=== PATIENT | female | born 1930 | race Caucasian/White ===

== ENCOUNTER 2016-12-02 13:20 | Emergency (ER) | payer MEDICARE, OTHER ==
--- NOTE | 2016-12-02 15:30 | ED ---
Abdominal Pain/Female - HPI Summary HPI Summary: Patient presents for delayed evaluation of diffuse, atraumatic, intermittent, cramping abdominal pain. No allev factors, recent narcotic or antihistamine use. No change to cramping character or severity. Came for evaluation due to duration. Did not discuss this with her PCP. - History of Current Complaint Chief Complaint: EDAbdPain Stated Complaint: POSS BOWEL OBSTRUCTION Time Seen by Provider: 12/02/16 15:22 Hx Obtained From: Patient Onset/Duration: Gradual Onset Timing: Constant Severity Initially: Mild Severity Currently: Mild Pain Intensity: 6 Allergies/Adverse Reactions: Allergies Allergy/AdvReac Type Severity Reaction Status Date / Time No Known Allergies Allergy Verified 09/24/16 10:40 PMH/Surg Hx/FS Hx/Imm Hx Endocrine/Hematology History: Reports: Hx Unexplained Bleeding - Presently has blood in stool Denies: Hx Diabetes, Hx Sickle Cell Disease, Hx Anemia Cardiovascular History: Reports: Hx Congestive Heart Failure, Hx Hypertension - CONTROL WITH MEDS, 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, Other Cardiovascular Problems/Disorders - ATRIAL FIB Denies: Hx Pacemaker/ICD Respiratory History: Denies: Hx Asthma, Other Respiratory Problems/Disorders GI History: Denies: Hx Jaundice, Other GI Disorders History: Denies: Hx Dialysis, Hx Renal Disease, Other Problems/Disorders Musculoskeletal History: Denies: Other Musculoskeletal History Sensory History: Reports: Hx Cataracts, Hx Contacts or Glasses - GLASSES - CAN SEE WITHOUT THEM, Hx Glaucoma - BILATERAL Denies: Hx Hearing Aid Opthamlomology History: Reports: Hx Cataracts, Hx Contacts or Glasses - GLASSES - CAN SEE WITHOUT THEM, Hx Glaucoma - BILATERAL Neurological History: Denies: Other Neuro Impairments/Disorders Psychiatric History: Denies: Hx Panic Disorder - Surgical History Surgery Procedure, Year, and Place: TONSILLECTOMY A CHILD. [place] [facility] [place] B[place], FIRST ONE IN [place], [place], [place] [facility] [place] [facility] [place]. 2005 EXCISION OF SOFT TISSUE MASS RIGHT HIP [place], [facility] [place] [facility] [place] BILATERAL CATARACT [place]TRACTION WITH IOL IMPLANTS[place] [facility] [place]x Anesthesia Reactions: No Infectious Disease History: No Infectious Disease History: Denies: Traveled Outside the [place] in Last 30 Days - Social History Alcohol Use: Daily Alcohol Amount: RED WINE Substance Use Type: Reports: None Smoking Status (MU): Former Smoker Type: Cigarettes Amount Used/How Often: 1 PPD FOR 20 YEARS Length of Time of Smoking/Using Tobacco: 20 years Have You Smoked in the Last Year: No Review of Systems Negative: Fever, Chills Cardiovascular: Negative Respiratory: Negative Positive: Abdominal Pain. Negative: Vomiting, Diarrhea, Nausea Genitourinary: Negative Positive: no symptoms reported All Other Systems Reviewed And Are Negative: Yes Physical Exam Triage Information Reviewed: Yes Vital Signs On Initial Exam: Initial Vitals Temp Pulse Resp BP Pulse Ox 97.4 F 77 18 133/90 97 12/02/16 13:21 12/02/16 13:21 12/02/16 13:21 12/02/16 13:21 12/02/16 13:21 Vital Signs Reviewed: Yes Appearance: Positive: Well-Appearing, No Pain Distress, Well-Nourished Skin: Positive: Warm, Skin Color Reflects Adequate Perfusion, Dry Neck: Positive: Supple, Nontender Respiratory/Lung Sounds: Positive: Clear to Auscultation, Breath Sounds Present Cardiovascular: Positive: Normal, RRR, Pulses are Symmetrical in both Upper and Lower Extremities Abdomen Description: Positive: Nontender, No Organomegaly, Soft Bowel Sounds: Positive: Present Musculoskeletal: Positive: Normal, Strength/ROM Intact Neurological: Positive: Normal, Sensory/Motor Intact, Alert, Oriented to Person Place, Time, CN Intact II-III - Regan Coma Scale Coma Scale Total: 15 Diagnostics - Vital Signs Vital Signs Temp Pulse Resp BP Pulse Ox 12/02/16 14:16 98.1 F 66 18 136/93 95 12/02/16 13:21 97.4 F 77 18 133/90 97 - Laboratory Result Diagrams: 12/02/16 15:50 12/02/16 15:50 Lab Statement: Any lab studies that have been ordered have been reviewed, and results considered in the medical decision making process. Abdominal Pain Fem Course/Dx - Diagnoses Differential Diagnosis: Positive: Bowel Obstruction, Constipation, Urinary Tract Infection, Other - Soft benign abdomen, but with low concern for ischemic bowel disease. Provider Diagnoses: Abdominal pain Discharge - Discharge Plan Condition: Stable Disposition: HOME Patient Education Materials: Abdominal Pain (ED)
[2016-12-02 16:07] LABS: Hematocrit 47 % (35-47); Hemoglobin 15.5 g/dl (12.0-16.0); Mean Corpuscular HGB Conc 33 g/dl (31-36); Mean Corpuscular Hemoglobin 33 pg (27-31); Mean Corpuscular Volume 99 fL (80-97); Mean Platelet Volume 10 um3 (7.4-10.4); Red Blood Count 4.71 10^6/ul (4.0-5.4); Red Cell Distribution Width 14 % (10.5-15); White Blood Count 9.7 10^3/ul (3.5-10.8)
[2016-12-02 16:21] LABS: Albumin 4.6 g/dL (3.2-5.2); BUN/Creatinine Ratio 21.7 (8-20); Calcium 10.1 mg/dL (8.6-10.3); EGFR Non-African American 65.3 (>60); Globulin 2.3 g/dL (2-4); Total Protein 6.9 g/dL (6.4-8.9)
[2016-12-02] MEDS ORDERED: Iohexol 300* (CONTRAST) 10 ML SDV IV ONE (16:37)
[2016-12-02 17:22] LABS: Urine Bilirubin Negative (Negative); Urine Glucose Negative (Negative); Urine Nitrite Negative (Negative)
--- NOTE | 2016-12-02 17:32 | RAD ---
INDICATION: Abdominal pain. Bowel obstruction. COMPARISON: No recent plain radiographs; CT abdomen pelvis October 09, 2016 TECHNIQUE: Axial source images were obtained from the hemidiaphragms to the symphysis pubis following administration of oral and intravenous contrast. 85 mL Omnipaque 300 was utilized. Coronal and sagittal reconstructed images were acquired. Lung bases: The lung bases are clear. There are basilar emphysematous changes. The heart is enlarged. Liver: The liver is normal in size. There is mild left hepatic lobe prominence and there is mild heterogeneity suggesting underlying hepatic parenchymal disease. Suggest correlation with liver enzymes as indicated. There are no masses. There is no ductal dilatation. Gallbladder: There are no calcified gallstones. There is no evidence of wall thickening or pericholecystic fluid. Spleen: The spleen is normal in size. There are no masses. Pancreas: There is no focal pancreatic mass or ductal dilatation. Adrenal glands: There is presumed mild adrenal hyperplasia. Kidneys: The kidneys are normal in size and position although there is renal parenchymal thinning bilaterally. There are prompt nephrograms and there is prompt excretion bilaterally. There are no renal parenchymal masses. There is no evidence of nephrolithiasis. Adenopathy: There is no evidence of adenopathy by size criteria. Fluid collections: There are no free or localized fluid collections. Vessels:There are atherosclerotic changes involving the aorta and iliac vessels. There is no focal aneurysm. The IVC appears normal. GI tract: There are no acute CT bowel findings. There is no obstruction. There is minor gaseous distention. The stomach and small bowel appear normal. The lower GI tract is normal. The cecum, ileocecal valve, and terminal ileum appear normal. The appendix is visualized and appear normal. Pelvic organs: The uterus and adnexa appear normal Bladder: There are no bladder masses. Abdominal and pelvic soft tissues: The extraperitoneal abdominal and pelvic soft tissues appear normal.. Osseous structures: There are no acute osseous findings. There is spondylitic change of the thoracolumbar spine. Other: None IMPRESSION: NO ACUTE CT FINDINGS. NO BOWEL OBSTRUCTION. MINOR GASEOUS DISTENTION. SUGGEST FOLLOW-UP PLAIN RADIOGRAPHS INDICATED
[2016-12-02 18:17] VITALS: BP 155/86
== END 2016-12-02 18:16 | disposition home or self-care (01) ==
LOC: ED 13:20
DX: R10.9 Unspecified abdominal pain (principal); Z87.891 Personal history of nicotine dependence; I50.9 Heart failure, unspecified; I10 Essential (primary) hypertension; I05.8 Other rheumatic mitral valve diseases; I48.91 Unspecified atrial fibrillation; Z79.01 Long term (current) use of anticoagulants
CPT/HCPCS: 36415; 74177; 80053; 81003; 83690; 85027; 85610; 96360; 99282; Q9967

== ENCOUNTER 2017-02-09 11:21 | Emergency (ER) | payer MEDICARE, OTHER ==
[2017-02-09 11:39] VITALS: BP 122/88
--- NOTE | 2017-02-09 12:56 | RAD ---
Indication: Constipation. Flat and upright views of the abdomen demonstrates no free air. No dilated loops of bowel are noted. The colon is filled with stool. IMPRESSION: No free air or obstruction is noted.
--- NOTE | 2017-02-09 13:44 | UC ---
General HPI - HPI Summary HPI Summary: FIVE DAYS OF CONSTIPATION TWO DAYS AGO, WELL YESTERDAY, TOOK MIRALAX WITH NO IMPROVEMENT OF SYMPTOMS. NO FEVER. NO TRAUMA. NO ABDOMINAL PAIN. NO RECTAL BLEEDING. NO NEW MEDICATIONS. DOES NOT TAKE FIBER SUPPLIMENTS. NOT ON ANY OPIOID MEDICATIONS. HAS "MEAT AND POTATOES" DIET. - History of Current Complaint Chief Complaint: UCGI Stated Complaint: CONSTIPATION Time Seen by Provider: 02/09/17 11:56 Hx Obtained From: Patient, Family/Senior Product Integrity Engineer Onset/Duration: Gradual Onset, Lasting Days, Still Present Onset Severity: Mild Current Severity: Moderate Pain Intensity: 4 Associated Signs & Symptoms: Negative: Agitation, Abdominal Pain, Confusion, Cough, Diarrhea, Dysuria, Decreased Oral Intake, Fever, Melena, Nausea, SOB, Trauma, Weakness - Allergy/Home Medications Allergies/Adverse Reactions: Allergies Allergy/AdvReac Type Severity Reaction Status Date / Time No Known Allergies Allergy Verified 09/24/16 10:40 Home Medications: Home Medications Polyethylene Glycol 3350 BTL* [Miralax] 1 dose PO DAILY PRN 02/09/17 [History Confirmed 02/09/17] PMH/Surg Hx/FS Hx/Imm Hx Previously Healthy: Yes Endocrine History Of: Denies: Diabetes, Thyroid Disease Cardiovascular History Of: Reports: Cardiac Disorders - atrial fib, defective Mitral valve, Hypertension - CONTROL WITH MEDS, Congestive Heart Failure, Atrial Fibrillation Denies: Pacemaker/ICD Respiratory History Of: Denies: COPD, Asthma GI/ History Of: Denies: Ulcer, Renal Disease - Surgical History Surgical History: Yes Surgery Procedure, Year, and Place: TONSILLECTOMY A CHILD. DILATION AND [place]TTAGES, 1 AT [facility] [place]. [place] & 1981 BILATERAL ANKLE SURGERY, FIRST ONE IN [place], [place], SEC[place] AT [facility] [place]. 1990 FRACTURE ARM REPAIR, [facility] [place]. 2006 EXCISION OF SOFT TISSUE MASS RIGHT HIP AND BACK, [facility] [place]. 2012 CARDIOVERSION X2, [facility] [place]. 2013 BILATERAL CATARACT EXTRACTION WITH IOL IMPLANTS, [facility] [place] - Family History Known Family History: Negative: Renal Disease - Social History Occupation: Retired Lives: At [facility] Alcohol Use: Daily Alcohol Amount: RED WINE Substance Use Type: None Smoking Status (MU): Former Smoker Type: Cigarettes Amount Used/How Often: 1 PPD FOR 20 YEARS Length of Time of Smoking/Using Tobacco: 20 years Have You Smoked in the Last Year: No When Did the Patient Quit Smoking/Using Tobacco: 1971 - Immunization History Most Recent Influenza Vaccination: season Most Recent Tetanus Shot: unknown Most Recent Pneumonia Vaccination: 2009 Review of Systems Constitutional: Negative Skin: Negative Eyes: Negative ENT: Negative Respiratory: Negative Cardiovascular: Negative Gastrointestinal: Other - CONSTIPATION Genitourinary: Negative Motor: Negative Neurovascular: Negative Musculoskeletal: Negative Neurological: Negative Psychological: Negative All Other Systems Reviewed And Are Negative: Yes Physical Exam Triage Information Reviewed: Yes Appearance: Well-Appearing, No Pain Distress, Well-Nourished Vital Signs: Initial Vital Signs Temp 97.7 F 02/09/17 11:31 Pulse 90 02/09/17 11:31 Resp 16 02/09/17 11:31 BP 122/88 02/09/17 11:31 Pulse Ox 97 02/09/17 11:31 Vital Signs Reviewed: Yes Eye Exam: Normal ENT Exam: Normal ENT: Positive: Normal ENT inspection, Hearing grossly normal, TMs normal Dental Exam: Normal Neck exam: Normal Neck: Positive: Supple, Nontender, No Lymphadenopathy Respiratory Exam: Normal Respiratory: Positive: Chest non-tender, Lungs clear, Normal breath sounds, No respiratory distress Cardiovascular Exam: Normal Cardiovascular: Positive: RRR, No Murmur Abdomen Description: Positive: Nontender, No Organomegaly, Soft, Distended Bowel Sounds: Positive: Present, Hypoactive Musculoskeletal Exam: Normal Neurological Exam: Normal Psychological Exam: Normal Psychological: Positive: Normal Response To Family Skin Exam: Normal Course/Dx - Differential Dx - Multi-Symptom Provider Diagnoses: CONSTIPATION Discharge - Discharge Plan Condition: Stable Disposition: HOME Prescriptions: Magnesium CITRATE* [Citrate of Magnesia*] 300 ml PO SEE INSTRUCTIONS PRN #1 [id number] PRN Reason: Constipation Patient Education Materials: Constipation (ED) Referrals: Baldemar Knapp MD [Primary Care Provider] - Denys Zaragoza MD [Medical Doctor] -
== END 2017-02-09 13:16 | disposition home or self-care (01) ==
LOC: UCEAST 11:21
DX: K59.00 Constipation, unspecified (principal); I48.91 Unspecified atrial fibrillation; I11.0 Hypertensive heart disease with heart failure; I50.9 Heart failure, unspecified; Z95.2 Presence of prosthetic heart valve; Z87.891 Personal history of nicotine dependence
CPT/HCPCS: 74020; 99212; G0463

== ENCOUNTER 2018-11-16 14:29 | Inpatient (IN) | payer MEDICARE, OTHER ==
[2018-11-16] MEDS ORDERED: Tetan/Diph/Pertus SYR(Tdap)* 0.5 ML SYR(BOOSTRIX) use SYR IM ONE (14:48)
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
[2018-11-16] MEDS ORDERED: oxyCODONE/Acetamin 5/325 MG* TAB PO ONE (16:02)
[2018-11-16] MEDS ORDERED: NS 0.9% 1000 ML** 1,000 ML IV ONE (18:51)
[2018-11-16 19:43] LABS: ABS Basophils 0.1 10^3/ul (0-0.2); ABS Eosinophils 0 10^3/ul (0-0.6); ABS Lymphocytes 1.2 10^3/ul (1.0-4.8); ABS Monocytes 1.3 10^3/ul (0-0.8); ABS Neutrophils 14.5 10^3/ul (1.5-7.7); ABS Nucleated RBC 0 10^3/ul; Eosinophil % 0.1 %; Hematocrit 36 % (35-47); Hemoglobin 11.8 g/dl (12.0-16.0); Lymphocyte % 7.1 %; Mean Corpuscular HGB Conc 33 g/dl (31-36); Mean Corpuscular Hemoglobin 33 pg (27-31); Mean Corpuscular Volume 102 fL (80-97); Mean Platelet Volume 9.8 fL (7.4-10.4); Nucleated Red Blood Cells % 0.2; Platelet Count 208 10^3/ul (150-450); Red Blood Count 3.58 10^6/ul (4.00-5.40); Red Cell Distribution Width 17 % (10.5-15); White Blood Count 17.1 10^3/ul (3.5-10.8)
[2018-11-16 19:58] LABS: Activated Partial Thrombo Time 30.2 seconds (26.0-36.3); INR 1.52 (0.77-1.02)
[2018-11-16 20:06] LABS: Albumin 3.9 g/dL (3.2-5.2); Albumin/Globulin Ratio 2.2 (1-3); BUN/Creatinine Ratio 33.3 (8-20); Calcium 9.7 mg/dL (8.6-10.3); EGFR Non-African American 51.3 (>60); Globulin 1.8 g/dL (2-4); Potassium 4.7 mmol/L (3.5-5.0); Total Bilirubin 1.3 mg/dL (0.2-1.0); Total Protein 5.7 g/dL (6.4-8.9)
[2018-11-16 20:27] LABS: Urine Appearance Cloudy; Urine Bacteria Absent (Absent); Urine Bilirubin Negative (Negative); Urine Blood 3+ (Negative); Urine Color Yellow; Urine Glucose Negative (Negative); Urine Ketones Trace (Negative); Urine Nitrite Negative (Negative); Urine Protein Negative (Negative); Urine Red Blood Cell 3+(>10/hpf) (Absent); Urine Specific Gravity 1.025 (1.010-1.030); Urine Squamous Epithelial Cell Present (Absent); Urine Urobilinogen Negative (Negative); Urine White Blood Cell Trace(0-5/hpf) (Absent)
[2018-11-16] MEDS ORDERED: Phytonadione Oral Solution* 5 MG/25 ML UDC PO ONE (21:14)
[2018-11-16] MEDS ORDERED: Acetaminophen TAB* 325 MG PO PRN (21:16)
[2018-11-16] MEDS ORDERED: oxyCODONE/Acetamin 5/325 MG* TAB PO PRN (21:28)
[2018-11-16] MEDS ORDERED: Morphine VIAL* 4 MG/ML VIAL (1 ml vial) IV PRN (21:28)
--- NOTE | 2018-11-16 21:50 | ADMNOTE ---
Subjective Date of Service: 11/16/18 Interval History: Date of Admission: 11/16/2018 Primary Care Provider: Dr Knapp Attending Physician: Dr Marshall Chief Complaint: 1. Mechanical Fall 2. Right hip pain 3. Right shoulder pain HPI: Mrs Roach is a 88 yr old female with a pmh of diastolic heart failure, 3 L supplemental O2 at home, HTN, tricuspid valve regurg, atrial fib, osteoporosis , hld, impaired fasting glucose, and LE edema; who presented to the ED after a mechanical fall on ice which results in her falling onto her right side and hitting head. While in the ED patient was found to have a communated angulated intertrochanteric fx of the right femur. In addition imagind of her right ue revealed linear density of the radial head which may indicate an impacted nondisplaced fx of the radial head. Due to these findings, Dr Huitron was contacted by the ED provider and the hospitalist were asked to evaluated for admission. Review of Systems - Measurements Intake and Output: Intake and Output Last 24 Hours 11/14/18 11/15/18 11/16/18 11/17/18 06:59 06:59 06:59 06:59 Weight 55.338 kg - Review of Systems Constitutional Symptoms: Negative: Weight Loss, Weakness, Fever, Unexplained Falls Dermatology: Negative: Rash HEENT: Negative: Vertigo Eyes: Negative: Normal, Change in Vision, Double Vision Thyroid: Negative: Constipation, Palpitations, Weight Loss Pulmonary: Positive: Shortness of Breath - with exertion, Exercise Intolerance, Home Oxygen Negative: Cough, Sputum, Hemoptysis, Wheezing, Respiratory Distress, COPD Cardiology: Positive: Shortness of Breath Negative: Chest Pain, Palpitations, Swelling of Ankles, Peripheral Vascular Dis, Edema, Faintness, Syncope, Claudication, Proximal NocturnalDyspnea, Orthopnoea Gastroenterology: Positive: Blood in Stools - per ED provider documentation she reports blood in stool recently. Negative: Normal, Abdominal Pain, Nausea, Vomiting, Difficulty Swallowing, Constipation, Diarrhea, Change in Bowel Habits Genital - Urinary: Negative: Dysuria, Hematuria Musculoskeletal: Positive: Joint Pain, Osteoporosis, Low Back Pain - Hx of low back pain d/t "stress fx" Hematologic/Lymphatic: Positive: Use of Anticoagulant Neurology: Negative: Normal, Headache, Dizziness, Numbness\\Paresthesiae, Unexplained Weakness, Hx of Stroke\\TIA, Hx of Seizures Psychiatry: Negative: Normal, Depression, Anxiety Objective Active Medications: Acetaminophen (Tylenol Tab*) 650 mg PO Q6H LIA Docusate Sodium (Colace Cap*) 100 mg PO BID LIA Sodium Chloride (Ns 0.9% 1000 Ml*) 1,000 mls @ 100 mls/hr IV ED ONCE ONE Stop: 11/17/18 04:50 Last Admin: 11/16/18 19:17 Dose: 100 mls/hr Metoprolol Tartrate (Lopressor Tab*) 50 mg PO BID LIA Morphine Sulfate (Morphine Inj ((Syringe))*) 1 mg IV Q4H PRN PRN Reason: SEVERE PAIN Oxycodone/Acetaminophen (Percocet 5/325 Tab*) 1 tab PO Q6H PRN PRN Reason: PAIN Vital Signs - 8 hr 11/16/18 11/16/18 11/16/18 14:30 14:47 15:00 Temperature 97.3 F Pulse Rate 83 80 Respiratory 16 Rate Blood Pressure 125/85 107/77 (mmHg) O2 Sat by Pulse 99 Oximetry 11/16/18 11/16/18 11/16/18 15:01 16:00 16:01 Temperature Pulse Rate 80 87 85 Respiratory Rate Blood Pressure 101/81 (mmHg) O2 Sat by Pulse 100 100 Oximetry 11/16/18 11/16/18 11/16/18 16:09 17:00 17:58 Temperature Pulse Rate 89 Respiratory 16 Rate Blood Pressure 107/74 (mmHg) O2 Sat by Pulse 99 Oximetry 11/16/18 11/16/18 11/16/18 18:02 18:13 18:30 Temperature Pulse Rate 97 91 Respiratory Rate Blood Pressure 100/68 85/67 (mmHg) O2 Sat by Pulse 99 100 Oximetry 11/16/18 11/16/18 11/16/18 18:32 18:45 19:00 Temperature 98.9 F Pulse Rate 87 91 93 Respiratory 16 Rate Blood Pressure 95/73 95/73 103/69 (mmHg) O2 Sat by Pulse 97 99 100 Oximetry 11/16/18 11/16/18 11/16/18 19:01 20:00 20:01 Temperature Pulse Rate 92 102 102 Respiratory Rate Blood Pressure 92/51 (mmHg) O2 Sat by Pulse 100 98 100 Oximetry Oxygen Devices in Use Now: Nasal Cannula Appearance: Comfortable, Cooperative, NAD Eyes: No Scleral Icterus Ears/Nose/Mouth/Throat: Clear Oropharnyx, Mucous Membranes Moist Neck: NL Appearance and Movements; NL JVP Respiratory: Symmetrical Chest Expansion and Respiratory Effort, Clear to Auscultation Cardiovascular: NL Sounds; No Murmurs; No JVD, No Edema, - - Irregular Abdominal: NL Sounds; No Tenderness; No Distention Lymphatic: No Cervical Adenopathy Extremities: No Edema, No Clubbing, Cyanosis, - - External rotation of right LE. Pulses found by doppler Skin: No Rash or Ulcers Neurological: Alert and Oriented x 3, NL Sensation Nutrition: Taking PO's Result Diagrams: 11/16/18 19:35 11/16/18 19:35 Additional Lab and Data: Laboratory Results - last 24 hr 11/16/18 11/16/18 11/16/18 17:25 19:35 19:35 WBC 17.1 H RBC 3.58 L Hgb 11.8 L Hct 36 MCV 102 H MCH 33 H MCHC 33 RDW 17 H Plt Count 208 MPV 9.8 Neut % (Auto) 84.6 Lymph % (Auto) 7.1 [place] % (Auto) 7.7 Eos % (Auto) 0.1 Baso % (Auto) 0.5 Absolute Neuts (auto) 14.5 H Absolute Lymphs (auto) 1.2 Absolute Monos (auto) 1.3 H Absolute Eos (auto) 0 Absolute Basos (auto) 0.1 Absolute Nucleated RBC 0 Nucleated RBC % 0.2 INR (Anticoag Therapy) 1.52 H APTT 30.2 Sodium Potassium Chloride Carbon Dioxide Anion Gap BUN Creatinine Est GFR ( Amer) Est GFR (Non-Af Amer) BUN/Creatinine Ratio Glucose Calcium Total Bilirubin AST ALT Alkaline Phosphatase Total Protein Albumin Globulin Albumin/Globulin Ratio Urine Color Yellow Urine Appearance Cloudy Urine pH 5.0 Ur Specific [place] 1.025 Urine Protein Negative Urine Ketones Trace A Urine Blood 3+ A Urine Nitrate Negative Urine Bilirubin Negative Urine Urobilinogen Negative Ur Leukocyte Esterase Negative Urine WBC (Auto) Trace(0-5/hpf) Urine RBC (Auto) 3+(>10/hpf) A Ur Squamous Epith Cells Present A Urine Bacteria Absent Urine Glucose Negative Blood Type Antibody Screen 11/16/18 11/16/18 19:35 19:35 WBC RBC Hgb Hct MCV MCH MCHC RDW Plt Count MPV Neut % (Auto) Lymph % (Auto) [place] % (Auto) Eos % (Auto) Baso % (Auto) Absolute Neuts (auto) Absolute Lymphs (auto) Absolute Monos (auto) Absolute Eos (auto) Absolute Basos (auto) Absolute Nucleated RBC Nucleated RBC % INR (Anticoag Therapy) APTT Sodium 138 Potassium 4.7 Chloride 102 Carbon Dioxide 28 Anion Gap 8 BUN 34 H Creatinine 1.02 H Est GFR ( Amer) 62.0 Est GFR (Non-Af Amer) 51.3 BUN/Creatinine Ratio 33.3 H Glucose 117 H Calcium 9.7 Total Bilirubin 1.30 H AST 16 ALT 16 Alkaline Phosphatase 73 Total Protein 5.7 L Albumin 3.9 Globulin 1.8 L Albumin/Globulin Ratio 2.2 Urine Color Urine Appearance Urine pH Ur Specific [place] Urine Protein Urine Ketones Urine Blood Urine Nitrate Urine Bilirubin Urine Urobilinogen Ur Leukocyte Esterase Urine WBC (Auto) Urine RBC (Auto) Ur Squamous Epith Cells Urine Bacteria Urine Glucose Blood Type A Positive Antibody Screen Negative Microbiology and Other Data: . Diagnostic Imaging: TECHNIQUE: Multiple contiguous axial CT scans were obtained of the head without intravenous contrast. FINDINGS: HEMORRHAGE/INFARCT: There is no hemorrhage or acute infarct. MASSES/SHIFT: There is no mass or shift. EXTRA-AXIAL SPACES: There are no extra-axial fluid collections. SULCI AND VENTRICLES: There is diffuse and proportional enlargement of the sulci and ventricles. CEREBRUM: There is hypoattenuation of the periventricular and subcortical white matter. BRAINSTEM: There are no focal parenchymal abnormalities. CEREBELLUM: There are no focal parenchymal abnormalities. VESSELS: There is calcification of the cavernous segments of the internal carotid arteries bilaterally and of the distal vertebral arteries bilaterally. PARANASAL SINUSES: The paranasal sinuses are clear. ORBITS: The orbits are unremarkable. BONES AND SOFT TISSUE: No bone or soft tissue abnormalities are noted. OTHER: None IMPRESSION: NO ACUTE INTRACRANIAL PATHOLOGY. DIFFUSE INVOLUTIONAL CHANGE WITH CHRONIC SMALL VESSEL ISCHEMIC CHANGES. TECHNIQUE: Multiple contiguous axial CT scans were obtained of the cervical spine without intravenous contrast, with coronal and sagittal multiplanar reformations. FINDINGS: BRAIN: The visualized brain is unremarkable CENTRAL CANAL: Evaluation of the central canal is limited on CT technique; however, there is no obvious canalicular mass or epidural hemorrhage. ALIGNMENT: There is grade 1 retrolisthesis of C4 and C5. VERTEBRAL BODIES: There is diffuse osteopenia. There is no displaced fracture. There is multilevel anterolateral marginal osteophyte formation. JOINTS: There is diffuse uncovertebral and facet osteoarthritis. MUSCULATURE: Unremarkable INTERVERTEBRAL DISCS: There is diffuse loss of intervertebral disc height. AXIAL IMAGES: C2-C3: There is no osseous neural foraminal narrowing or central canal stenosis. C3-C4: There is mild right neuroforaminal neural foraminal narrowing. There is no osseous central canal stenosis. C4-C5: There is a broad-based disc osteophyte complex with bilateral uncovertebral and facet hypertrophy. There is severe bilateral neuroforaminal narrowing. There is moderate to severe narrowing of the central canal. C5-C6: There is severe left and moderate right neuroforaminal narrowing. There is mild narrowing of the central canal. C6-C7: There is moderate left and mild right neuroforaminal narrowing. There is mild narrowing of the central canal. C7-T1: There is no osseous neural foraminal narrowing or central canal stenosis. SOFT TISSUES: There is calcification of the bifurcations bilaterally and of the distal vertebral arteries bilaterally. The prevertebral fat stripe is preserved. OTHER: None. IMPRESSION: 1. OSTEOPENIA. 2. ATHEROSCLEROSIS 3. DEGENERATIVE DISC DISEASE AND OSTEOARTHRITIS, DESCRIBED ABOVE. 4. NO ACUTE OSSEOUS INJURY TO THE CERVICAL SPINE VIEWS: 7 , Frontal view of the pelvis with frontal and crosstable lateral views of the right hip with frontal and lateral views of the right femur FINDINGS: BONE DENSITY: There is diffuse osteopenia. BONES: There is a comminuted and angulated intertrochanteric fracture of the right femur. JOINTS: There is osteoarthritis of the hips and right knee. ALIGNMENT: There is no dislocation. SOFT TISSUES: Unremarkable. OTHER FINDINGS: None. IMPRESSION: COMMINUTED ANGULATED INTERTROCHANTERIC FRACTURE OF THE RIGHT FEMUR. OSTEOPENIA. OSTEOARTHRITIS. VIEWS: 4 , Frontal internal rotation, external rotation, outlet, and axillary views of the right shoulder FINDINGS: BONE DENSITY: There is diffuse osteopenia. BONES: There is linear density of the humeral head. JOINTS: There is moderate osteoarthritis of the a.c. and glenohumeral joints. ALIGNMENT: There is no dislocation. SOFT TISSUES: Unremarkable. OTHER FINDINGS: None. IMPRESSION: 1. OSTEOPENIA. 2. LINEAR DENSITY OF THE RADIAL HEAD WHICH MAY INDICATE AN IMPACTED NONDISPLACED FRACTURE OF THE RADIAL HEAD. 3. OSTEOARTHRITIS. VIEWS: 7 , Frontal view of the pelvis with frontal and crosstable lateral views of the right hip with frontal and lateral views of the right femur FINDINGS: BONE DENSITY: There is diffuse osteopenia. BONES: There is a comminuted and angulated intertrochanteric fracture of the right femur. JOINTS: There is osteoarthritis of the hips and right knee. ALIGNMENT: There is no dislocation. SOFT TISSUES: Unremarkable. OTHER FINDINGS: None. IMPRESSION: COMMINUTED ANGULATED INTERTROCHANTERIC FRACTURE OF THE RIGHT FEMUR. OSTEOPENIA. OSTEOARTHRITIS. VIEWS: 1: frontal AP view of the chest at 4:37 PM FINDINGS: LINES AND TUBES: None. CARDIOMEDIASTINAL SILHOUETTE: The cardiac silhouette is enlarged. The cardiomediastinal silhouette is otherwise normal for portable technique. PLEURA: There is elevation of left hemidiaphragm. LUNG PARENCHYMA: There is hyperinflation. ABDOMEN: The upper abdomen is clear. There is no subphrenic gas. BONES AND SOFT TISSUES: No bone or soft tissue abnormalities are noted. IMPRESSION: CARDIOMEGALY. COPD ELEVATION OF LEFT HEMIDIAPHRAGM. EKG Data: a fib Assess/Plan/Problems-Billing Assessment: 88 yr old female with pmh of diastolic heart failure, atrial fibrillation (on anticoag), home O2 at 3 L NC, HTN, HLD, impaired fasting glucose; who present to the ED after a mechanical fall on ice and was found to have communated angulated intertrochanteric fx of the right femur - Patient Problems (1) Intertrochanteric fracture of right femur Comment: - Mechanical fall on ice - communated angulated intertrochanteric fx of the right femur - Dr Huitron to see patient tomorrow. - Patient RCRI 1 point of 6.0% - Due to patients exercise intolerance, supplemental O2 requirement, and hx of diastiolic heart failure, I have ordered an echo for the morning. In addition, I have contacted cardiology to consult for cardiac clearance prior to surgery (2) Diastolic CHF Comment: - Last Echo in 2017, therefore, repeat echo for the morning. - Patient is established with [facility]. Dr Carmona called made aware of patient. - Cont patient's metoprolol/ - Hold patient's Spironolactone and Lasix given possible upcoming surgery (3) Anticoagulant therapy Comment: - INR 1.52 - Hold Warfarin - 2.5 mg Vitamin K ordered. - Recheck INR in morning (4) Atrial fibrillation Comment: - Admitted to tele - Holding Coumadin (5) Essential hypertension Comment: - Cont metoprolol - Hold Lasix and Spironolactone (6) Hypercholesterolemia Comment: - Defer to primary care (7) Impaired fasting glycaemia Comment: - Finger sticks ordered, but no coverage (8) Melena Comment: - Patient reported blood in stool per ED physican, stool guaic ordered. (9) DVT prophylaxis Comment: - Given patient's report of blood in stool and upcoming operation, I have not ordered chemical prophylaxis at this time. - Reassess as soon as possible. - SCDs ordered (10) Leukocytosis Comment: - WBC is 17.1 - I suspected this is 2/2 to fall - CBC to be rechecked tomorrow (11) Creatinine elevation Comment: - Mild elevation in creatinine from baseline - Will recheck tomorrow - Received IVF in the ED, but I am not providing any additional fluid given CHF (12) DNR (do not resuscitate) Comment: - Patient is a DNR/DNI Status and Disposition: Inpatient. Attending: Madhavi Marshall
[2018-11-16] MEDS: Acetaminophen TAB* 325 MG PO SCH (23:14)
[2018-11-17] MEDS: Morphine VIAL* 10 MG/ML 1 ML VIAL IV PRN ×2 (02:39→21:01)
[2018-11-17] MEDS: Acetaminophen TAB* 325 MG PO SCH ×4 (04:14→21:00)
[2018-11-17] MEDS: Melatonin 3 MG TAB PO PRN ×2 (04:18→21:00)
[2018-11-17 05:58] LABS: ABS Basophils 0.1 10^3/ul (0-0.2); ABS Eosinophils 0 10^3/ul (0-0.6); ABS Lymphocytes 1.3 10^3/ul (1.0-4.8); ABS Monocytes 1.2 10^3/ul (0-0.8); ABS Neutrophils 7.1 10^3/ul (1.5-7.7); ABS Nucleated RBC 0 10^3/ul; Eosinophil % 0.1 %; Hematocrit 30 % (35-47); Hemoglobin 10.2 g/dl (12.0-16.0); Lymphocyte % 13.3 %; Mean Corpuscular HGB Conc 34 g/dl (31-36); Mean Corpuscular Hemoglobin 34 pg (27-31); Mean Corpuscular Volume 101 fL (80-97); Mean Platelet Volume 9.7 fL (7.4-10.4); Nucleated Red Blood Cells % 0.2; Platelet Count 177 10^3/ul (150-450); Red Blood Count 2.99 10^6/ul (4.00-5.40); Red Cell Distribution Width 17 % (10.5-15); White Blood Count 9.6 10^3/ul (3.5-10.8)
[2018-11-17 06:17] LABS: Calcium 9.2 mg/dL (8.6-10.3); EGFR African American 63.5 (>60); EGFR Non-African American 52.4 (>60); Potassium 4.8 mmol/L (3.5-5.0)
[2018-11-17 06:20] LABS: Activated Partial Thrombo Time 30.1 seconds (26.0-36.3); INR 1.37 (0.77-1.02)
[2018-11-17] MEDS ORDERED: HYDROmorphone INJ1* 1 MG/ML SYRINGE IV SLOW PU ONE (07:22)
--- NOTE | 2018-11-17 07:59 | PN ---
Subjective - Subjective Reason for Note: Progress Note History: I reviewed the presentation from Clarence Prasad and also from the history and physical provided by Ngoc Heredia NP. I note that Dr. Miracle Huitron has already seen her this morning and manipulated her right leg to sustain her vascular supply. According to the patient "I have been going down hill for a while". However, she has had no intercurrent illnesses and this fall occurred on an icy day on the way to her dentist. She fell on her head and right side. She has no headache, altered mental status or pain in her arms. Active Problems: Active Problems Creatinine elevation (Acute) R79.89 - Mild elevation in creatinine from baseline - Will recheck tomorrow - Received IVF in the ED, but I am not providing any additional fluid given CHF DNR (do not resuscitate) (Acute) - Patient is a DNR/DNI DVT prophylaxis (Acute) [id number] - Given patient's report of blood in stool and upcoming operation, I have not ordered chemical prophylaxis at this time. - Reassess as soon as possible. - SCDs ordered Fall from slipping on ice (Acute) W00.9XXA Intertrochanteric fracture of right femur (Acute) S72.141A - Mechanical fall on ice - communated angulated intertrochanteric fx of the right femur - Dr Huitron to see patient tomorrow. - Patient RCRI 1 point of 6.0% - Due to patients exercise intolerance, supplemental O2 requirement, and hx of diastiolic heart failure, I have ordered an echo for the morning. In addition, I have contacted cardiology to consult for cardiac clearance prior to surgery Leukocytosis (Acute) D72.829 - WBC is 17.1 - I suspected this is 2/2 to fall - CBC to be rechecked tomorrow Anticoagulant therapy (Chronic) Z79.01 - INR 1.52 - Hold Warfarin - 2.5 mg Vitamin K ordered. 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 - Patient is established with [facility]. Dr Carmona called made aware of patient. 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 Essential hypertension (Chronic) I10 - Cont metoprolol - Hold Lasix and Spironolactone Hypercholesterolemia (Chronic) E78.0 - Defer to primary care Impaired fasting glycaemia (Chronic) R73.01 - Finger sticks ordered, but no coverage Osteoporosis (Chronic) M81.0 Pulmonary hypertension (Chronic) I27.2 Current Medications: Current Medications Acetaminophen (Tylenol Tab*) 650 mg PO Q6H LIA Last Admin: 11/17/18 04:14 Dose: 650 mg Docusate Sodium (Colace Cap*) 100 mg PO BID LIA Melatonin (Melatonin) 3 mg PO BEDTIME PRN PRN Reason: SLEEP Last Admin: 11/17/18 04:18 Dose: 3 mg Metoprolol Tartrate (Lopressor Tab*) 50 mg PO BID LIA Morphine Sulfate (Morphine Vial*) 1 mg IV Q4H PRN PRN Reason: SEVERE PAIN Last Admin: 11/17/18 02:39 Dose: 1 mg Oxycodone/Acetaminophen (Percocet 5/325 Tab*) 1 tab PO Q6H PRN PRN Reason: PAIN - Review of Systems Constitutional Symptoms: Yes: Weakness, No: Fever Pulmonary: Negative: Cough, Hemoptysis, Respiratory Distress, Shortness of Breath Cardiology: Negative: Chest Pain, Shortness of Breath - not at rest, Swelling of Ankles, Faintness, Syncope Gastroenterology: Negative: Abdominal Pain, Nausea, Vomiting, Constipation, Diarrhea Neurology: Negative: Headache, Change in Vision Home Medications: Home Medications Medication Instructions Recorded Confirmed Type Furosemide TAB* [Lasix TAB*] 40 mg PO DAILY 90 Days tab 02/25/17 11/16/18 Rx Metoprolol Tartrate TAB* 50 mg PO BID #180 tab 02/25/17 11/16/18 Rx [Lopressor TAB*] Spironolactone TAB* [Aldactone TAB 25 mg PO DAILY #90 tab 02/25/17 11/16/18 Rx 25 MG*] Cholecalciferol TAB* [Vitamin D 400 unit PO DAILY 11/16/18 11/16/18 History TAB*] Glucosa Bardales 2Kcl/Chondroitin Bardales 1 cap PO BID 11/16/18 11/16/18 History [Glucosamine & Chondroitin Cap] Warfarin TAB(*) [Coumadin TAB(*)] 2.5 mg PO DAILY 11/16/18 11/16/18 History Allergies: Allergies Allergy/AdvReac Type Severity Reaction Status Date / Time No Known Allergies Allergy Verified 11/16/18 14:32 Objective - Vital Signs Vital Signs: Vital Signs 11/16/18 11/16/18 11/16/18 14:30 14:47 15:00 Temperature 97.3 F Pulse Rate 83 80 Respiratory 16 Rate Blood Pressure 125/85 107/77 (mmHg) O2 Sat by Pulse 99 Oximetry 11/16/18 11/16/18 11/16/18 15:01 16:00 16:01 Temperature Pulse Rate 80 87 85 Respiratory Rate Blood Pressure 101/81 (mmHg) O2 Sat by Pulse 100 100 Oximetry 11/16/18 11/16/18 11/16/18 16:09 17:00 17:58 Temperature Pulse Rate 89 Respiratory 16 Rate Blood Pressure 107/74 (mmHg) O2 Sat by Pulse 99 Oximetry 11/16/18 11/16/18 11/16/18 18:02 18:13 18:30 Temperature Pulse Rate 97 91 Respiratory Rate Blood Pressure 100/68 85/67 (mmHg) O2 Sat by Pulse 99 100 Oximetry 11/16/18 11/16/18 11/16/18 18:32 18:45 19:00 Temperature 98.9 F Pulse Rate 87 91 93 Respiratory 16 Rate Blood Pressure 95/73 95/73 103/69 (mmHg) O2 Sat by Pulse 97 99 100 Oximetry 11/16/18 11/16/18 11/16/18 19:01 20:00 20:01 Temperature Pulse Rate 92 102 102 Respiratory Rate Blood Pressure 92/51 (mmHg) O2 Sat by Pulse 100 98 100 Oximetry 11/16/18 11/16/18 11/17/18 22:14 23:59 02:27 Temperature 99.3 F 98.3 F Pulse Rate 78 118 110 Respiratory 16 20 Rate Blood Pressure 93/64 118/81 101/69 (mmHg) O2 Sat by Pulse 96 96 Oximetry 11/17/18 11/17/18 11/17/18 02:39 04:04 04:08 Temperature 98.1 F Pulse Rate 87 Respiratory 20 19 18 Rate Blood Pressure 98/67 (mmHg) O2 Sat by Pulse 100 Oximetry 11/17/18 07:33 Temperature Pulse Rate Respiratory 18 Rate Blood Pressure (mmHg) O2 Sat by Pulse Oximetry - Intake and Output Intake and Output: Intake & Output 11/14/18 11/15/18 11/16/18 11/17/18 11:59 11:59 11:59 11:59 Intake Total 0 Output Total 325 Balance -325 Weight 122 lb Intake: Oral 0 Output: Urine 0 Stubbs 325 ADLs: Meal Record Start: 11/16/18 22: 22 Freq: DAILY@0900,1400,1800 Status: Active Protocol: Created 11/16/18 22:22 System (Rec: 11/16/18 22:22 System [id number]) Intake and Output Start: 11/16/18 14: 32 Freq: Status: Active Protocol: Created 11/16/18 14:32 System (Rec: 11/16/18 14:32 System [id number]) Intake and Output Start: 11/16/18 22: 22 Freq: DAILY@0600,1400,2200 Status: Active Protocol: Created 11/16/18 22:22 System (Rec: 11/16/18 22:22 System [email or web address]) Document 11/17/18 06:00 [id number] (Rec: 11/17/18 06:01 [id number]) - Physical Exam General Physical Exam Comment: She is alert and fully oriented/conversational. She is warm and well perfused and hydrated. General: No Cyanosis, No Anemia, No Jaundice, No Clubbing Lungs and Chest: Yes: Chest Expansion Full, Chest Expansion Symetrica, Vessicular Breath Sounds - anterior chest. No: Crackles, Wheezes, Respiratory Distress, Use of Accessory Muscles Heart Rate and Rhythm: Irregular Additional Cardiovascular: Yes: Normal Heart Sounds, Heart Murmur - systolic murmur 3/6. No: Pedal Edema Abdominal Exam: Yes: Soft, Bowel Sounds Present. No: Distention, Abdominal Mass , Hepatomegaly, Abdominal Tenderness - Extremities Cranial Nerves II-XII Intact: Yes Limbs: Normal Power - Neuro Orientation: A/O x3 Psychiatric: Normal Speech: Normal Results - Results Lab Results: Laboratory Results - last 24 hr 11/16/18 11/16/18 11/16/18 17:25 19:35 19:35 WBC 17.1 H RBC 3.58 L Hgb 11.8 L Hct 36 MCV 102 H MCH 33 H MCHC 33 RDW 17 H Plt Count 208 MPV 9.8 Neut % (Auto) 84.6 Lymph % (Auto) 7.1 Kidder % (Auto) 7.7 Eos % (Auto) 0.1 Baso % (Auto) 0.5 Absolute Neuts (auto) 14.5 H Absolute Lymphs (auto) 1.2 Absolute Monos (auto) 1.3 H Absolute Eos (auto) 0 Absolute Basos (auto) 0.1 Absolute Nucleated RBC 0 Nucleated RBC % 0.2 INR (Anticoag Therapy) 1.52 H APTT 30.2 Sodium Potassium Chloride Carbon Dioxide Anion Gap BUN Creatinine Est GFR ( Amer) Est GFR (Non-Af Amer) BUN/Creatinine Ratio Glucose Calcium Total Bilirubin AST ALT Alkaline Phosphatase Total Protein Albumin Globulin Albumin/Globulin Ratio Urine Color Yellow Urine Appearance Cloudy Urine pH 5.0 Ur Specific [place] 1.025 Urine Protein Negative Urine Ketones Trace A Urine Blood 3+ A Urine Nitrate Negative Urine Bilirubin Negative Urine Urobilinogen Negative Ur Leukocyte Esterase Negative Urine WBC (Auto) Trace(0-5/hpf) Urine RBC (Auto) 3+(>10/hpf) A Ur Squamous Epith Cells Present A Urine Bacteria Absent Urine Glucose Negative Blood Type Antibody Screen 11/16/18 11/16/18 11/17/18 19:35 19:35 05:42 WBC RBC Hgb Hct MCV MCH MCHC RDW Plt Count MPV Neut % (Auto) Lymph % (Auto) Kidder % (Auto) Eos % (Auto) Baso % (Auto) Absolute Neuts (auto) Absolute Lymphs (auto) Absolute Monos (auto) Absolute Eos (auto) Absolute Basos (auto) Absolute Nucleated RBC Nucleated RBC % INR (Anticoag Therapy) APTT Sodium 138 140 Potassium 4.7 4.8 Chloride 102 104 Carbon Dioxide 28 31 Anion Gap 8 5 BUN 34 H 33 H Creatinine 1.02 H 1.00 H Est GFR ( Amer) 62.0 63.5 Est GFR (Non-Af Amer) 51.3 52.4 BUN/Creatinine Ratio 33.3 H 33.0 H Glucose 117 H 123 H Calcium 9.7 9.2 Total Bilirubin 1.30 H AST 16 ALT 16 Alkaline Phosphatase 73 Total Protein 5.7 L Albumin 3.9 Globulin 1.8 L Albumin/Globulin Ratio 2.2 Urine Color Urine Appearance Urine pH Ur Specific [place] Urine Protein Urine Ketones Urine Blood Urine Nitrate Urine Bilirubin Urine Urobilinogen Ur Leukocyte Esterase Urine WBC (Auto) Urine RBC (Auto) Ur Squamous Epith Cells Urine Bacteria Urine Glucose Blood Type A Positive Antibody Screen Negative 11/17/18 11/17/18 05:42 05:42 WBC 9.6 RBC 2.99 L Hgb 10.2 L Hct 30 L MCV 101 H MCH 34 H MCHC 34 RDW 17 H Plt Count 177 MPV 9.7 Neut % (Auto) 73.4 Lymph % (Auto) 13.3 Kidder % (Auto) 12.6 Eos % (Auto) 0.1 Baso % (Auto) 0.6 Absolute Neuts (auto) 7.1 Absolute Lymphs (auto) 1.3 Absolute Monos (auto) 1.2 H Absolute Eos (auto) 0 Absolute Basos (auto) 0.1 Absolute Nucleated RBC 0 Nucleated RBC % 0.2 INR (Anticoag Therapy) 1.37 H APTT 30.1 Sodium Potassium Chloride Carbon Dioxide Anion Gap BUN Creatinine Est GFR ( Amer) Est GFR (Non-Af Amer) BUN/Creatinine Ratio Glucose Calcium Total Bilirubin AST ALT Alkaline Phosphatase Total Protein Albumin Globulin Albumin/Globulin Ratio Urine Color Urine Appearance Urine pH Ur Specific [place] Urine Protein Urine Ketones Urine Blood Urine Nitrate Urine Bilirubin Urine Urobilinogen Ur Leukocyte Esterase Urine WBC (Auto) Urine RBC (Auto) Ur Squamous Epith Cells Urine Bacteria Urine Glucose Blood Type Antibody Screen Radiology Results: Patient Name: CLARENCE PRASAD Medical Record#: [id number] Ordering Physician: Jethro Mckeon MD Acct.#: [id number] : 1930 Age: 88 Sex: F Location: EMERGENCY DEPARTMENT Exam Date: 11/16/18 1446 ADM Status: REG ER Order Information: CT BRAIN WO Accession Number: [id number] CPT: 42955 HISTORY: fall/head injury COMPARISONS: None TECHNIQUE: Multiple contiguous axial CT scans were obtained of the head without intravenous contrast. FINDINGS: HEMORRHAGE/INFARCT: There is no hemorrhage or acute infarct. MASSES/SHIFT: There is no mass or shift. EXTRA-AXIAL SPACES: There are no extra-axial fluid collections. SULCI AND VENTRICLES: There is diffuse and proportional enlargement of the sulci and ventricles. CEREBRUM: There is hypoattenuation of the periventricular and subcortical white matter. BRAINSTEM: There are no focal parenchymal abnormalities. CEREBELLUM: There are no focal parenchymal abnormalities. VESSELS: There is calcification of the cavernous segments of the internal carotid arteries bilaterally and of the distal vertebral arteries bilaterally. PARANASAL SINUSES: The paranasal sinuses are clear. ORBITS: The orbits are unremarkable. BONES AND SOFT TISSUE: No bone or soft tissue abnormalities are noted. OTHER: None IMPRESSION: NO ACUTE INTRACRANIAL PATHOLOGY. DIFFUSE INVOLUTIONAL CHANGE WITH CHRONIC SMALL VESSEL ISCHEMIC CHANGES. <Electronically signed by Shahid Goldman MD in OV> 11/16/181547 Dictated By: Shahid Goldman MD Dictated Date/Time: 11/16/181547 Transcribed Date/Time: 11/16/181546 Copy to: Patient Name: CLARENCE PRASAD Medical Record#: [id number] Ordering Physician: Jethro Mckeon MD Acct.#: [id number] : 1930 Age: 88 Sex: F Location: EMERGENCY DEPARTMENT Exam Date: 11/16/181445 ADM Status: REG ER Order Information: CT SPINE CERVICAL W/O Accession Number: [id number] CPT: 39887 HISTORY: fall/head injury COMPARISONS: None TECHNIQUE: Multiple contiguous axial CT scans were obtained of the cervical spine without intravenous contrast, with coronal and sagittal multiplanar reformations. FINDINGS: BRAIN: The visualized brain is unremarkable CENTRAL CANAL: Evaluation of the central canal is limited on CT technique; however, there is no obvious canalicular mass or epidural hemorrhage. ALIGNMENT: There is grade 1 retrolisthesis of C4 and C5. VERTEBRAL BODIES: There is diffuse osteopenia. There is no displaced fracture. There is multilevel anterolateral marginal osteophyte formation. JOINTS: There is diffuse uncovertebral and facet osteoarthritis. MUSCULATURE: Unremarkable INTERVERTEBRAL DISCS: There is diffuse loss of intervertebral disc height. AXIAL IMAGES: C2-C3: There is no osseous neural foraminal narrowing or central canal stenosis. C3-C4: There is mild right neuroforaminal neural foraminal narrowing. There is no osseous central canal stenosis. C4-C5: There is a broad-based disc osteophyte complex with bilateral uncovertebral and facet hypertrophy. There is severe bilateral neuroforaminal narrowing. There is moderate to severe narrowing of the central canal. C5-C6: There is severe left and moderate right neuroforaminal narrowing. There is mild narrowing of the central canal. C6-C7: There is moderate left and mild right neuroforaminal narrowing. There is mild narrowing of the central canal. C7-T1: There is no osseous neural foraminal narrowing or central canal stenosis. SOFT TISSUES: There is calcification of the bifurcations bilaterally and of the distal vertebral arteries bilaterally. The prevertebral fat stripe is preserved. OTHER: None. IMPRESSION: 1. OSTEOPENIA. 2. ATHEROSCLEROSIS 3. DEGENERATIVE DISC DISEASE AND OSTEOARTHRITIS, DESCRIBED ABOVE. 4. NO ACUTE OSSEOUS INJURY TO THE CERVICAL SPINE <Electronically signed by Sahhid Goldman MD in OV> 11/16/18 1600 Patient Name: CLARENCE PRASAD Medical Record#: [id number] Ordering Physician: Jethro Mckeon MD Acct.#: [id number] : 1930 Age: 88 Sex: F Location: EMERGENCY DEPARTMENT Exam Date: 11/16/188 ADM Status: REG ER Order Information: HIP RIGHT 2 VIEWS AND PELVIS Accession Number: [id number] CPT: 04317 HISTORY: pain/fall COMPARISONS: None VIEWS: 7 , Frontal view of the pelvis with frontal and crosstable lateral views of the right hip with frontal and lateral views of the right femur FINDINGS: BONE DENSITY: There is diffuse osteopenia. BONES: There is a comminuted and angulated intertrochanteric fracture of the right femur. JOINTS: There is osteoarthritis of the hips and right knee. ALIGNMENT: There is no dislocation. SOFT TISSUES: Unremarkable. OTHER FINDINGS: None. IMPRESSION: COMMINUTED ANGULATED INTERTROCHANTERIC FRACTURE OF THE RIGHT FEMUR. OSTEOPENIA. OSTEOARTHRITIS. <Electronically signed by Shahid Goldman MD in OV> 11/16/181653 Dictated By: Shahid Goldman MD Dictated Date/Time: 11/16/181653 Transcribed Date/Time: 11/16/181652 Copy to: CC:Baldemar Knapp MD; Jethro Mckeon MD Imaging - [facility] Imaging - [facility] Imaging - [facility] [id number] [place] [address] ph [phone]) ph ([phone]) ph ([phone]) Patient Name: CLARENCE PRASAD Medical Record#: [id number] Ordering Physician: Jethro Mckeon MD Acct.#: [id number] : 1930 Age: 88 Sex: F Location: EMERGENCY DEPARTMENT Exam Date: 11/16/18 163 ADM Status: REG ER Order Information: CHEST 1 VW Accession Number: [id number] CPT: 91205 HISTORY: Pain, fall, hip fracture COMPARISONS: February 22, 2017 VIEWS: 1: frontal AP view of the chest at 4:37 PM FINDINGS: LINES AND TUBES: None. CARDIOMEDIASTINAL SILHOUETTE: The cardiac silhouette is enlarged. The cardiomediastinal silhouette is otherwise normal for portable technique. PLEURA: There is elevation of left hemidiaphragm. LUNG PARENCHYMA: There is hyperinflation. ABDOMEN: The upper abdomen is clear. There is no subphrenic gas. BONES AND SOFT TISSUES: No bone or soft tissue abnormalities are noted. IMPRESSION: CARDIOMEGALY. COPD ELEVATION OF LEFT HEMIDIAPHRAGM. <Electronically signed by Shahid Goldman MD in OV> 11/16/181654 Dictated By: Shahid Goldman MD Dictated Date/Time: 11/16/181654 Transcribed Date/Time: 11/16/181654 Copy to: CC:Baldemar Knapp MD; Jethro Mckeon MD [facility] [address] [address] ph [phone]) ph ([phone]) ph ([phone]) Patient Name: CLARENCE PRASAD Medical Record#: [id number] Ordering Physician: Jethro Mckeon MD Acct.#: [id number] : 1930 Age: 88 Sex: F Location: EMERGENCY DEPARTMENT Exam Date: 11/16/181631 ADM Status: REG ER Order Information: FEMUR RIGHT Accession Number: [id number] CPT: 95476 HISTORY: pain/fall COMPARISONS: None VIEWS: 7 , Frontal view of the pelvis with frontal and crosstable lateral views of the right hip with frontal and lateral views of the right femur FINDINGS: BONE DENSITY: There is diffuse osteopenia. BONES: There is a comminuted and angulated intertrochanteric fracture of the right femur. JOINTS: There is osteoarthritis of the hips and right knee. ALIGNMENT: There is no dislocation. SOFT TISSUES: Unremarkable. OTHER FINDINGS: None. IMPRESSION: COMMINUTED ANGULATED INTERTROCHANTERIC FRACTURE OF THE RIGHT FEMUR. OSTEOPENIA. OSTEOARTHRITIS. <Electronically signed by Shahid Goldman MD in OV> 11/16/181653 Dictated By: Shahid Goldman MD Dictated Date/Time: 11/16/181653 Transcribed Date/Time: 11/16/181652 Copy to: CC:Baldemar Knapp MD; Jethro Mckeon MD [facility] [address] [address] ph [phone]) ph ([phone]) ph ([phone]) Patient Name: CLARENCE PRASAD Medical Record#: [id number] Ordering Physician: Jethro Mckeon MD Acct.#: [id number] : 1930 Age: 88 Sex: F Location: EMERGENCY DEPARTMENT Exam Date: 11/16/181447 ADM Status: REG ER Order Information: SHOULDER RIGHT 2+ VWS Accession Number: [id number] CPT: 22065 ADDENDUM The IMPRESSION should read: "LINEAR DENSITY OF THE HUMERAL HEAD WHICH MAY INDICATE AN IMPACTED NONDISPLACED FRACTURE OF THE HUMERAL HEAD. <Electronically signed by Shahid Goldman MD in OV>11/16/181748 Dictated by: Shahid Goldman MD Dictated Date/Time:11/16/181748 Transcribed Date/Time: 11/16/181747 Copy to: Baldemar Knapp MD; Jethro Mckeon MD HISTORY: pain COMPARISONS: None VIEWS: 4 , Frontal internal rotation, external rotation, outlet, and axillary views of the right shoulder FINDINGS: BONE DENSITY: There is diffuse osteopenia. BONES: There is linear density of the humeral head. JOINTS: There is moderate osteoarthritis of the a.c. and glenohumeral joints. ALIGNMENT: There is no dislocation. SOFT TISSUES: Unremarkable. OTHER FINDINGS: None. IMPRESSION: 1. OSTEOPENIA. 2. LINEAR DENSITY OF THE RADIAL HEAD WHICH MAY INDICATE AN IMPACTED NONDISPLACED FRACTURE OF THE RADIAL HEAD. 3. OSTEOARTHRITIS. <Electronically signed by Shahid Goldman MD in OV> 11/16/181653 Dictated By: Shahid Goldman MD Dictated Date/Time: 11/16/181653 Transcribed Date/Time: 11/16/181653 EKG Report: EKg Atrial fibrillation 95 QTc [address] No [address]-T changes Assessment - Problem List Assessment: Patient Problems Creatinine elevation (Acute) DNR (do not resuscitate) (Acute) DVT prophylaxis (Acute) Fall from slipping on ice (Acute) Intertrochanteric fracture of right femur (Acute) Leukocytosis (Acute) Anticoagulant therapy (Chronic) Atrial fibrillation (Chronic) Collapse of thoracic vertebra due to osteoporosis (Chronic) Diastolic CHF (Chronic) Diastolic dysfunction (Chronic) Diverticular disease of colon (Chronic) Essential hypertension (Chronic) Hypercholesterolemia (Chronic) Impaired fasting glycaemia (Chronic) Osteoporosis (Chronic) Pulmonary hypertension (Chronic) Plan: Fall from slipping on ice (Acute)/Intertrochanteric fracture of right femur ( Acute) She fell on ice, but has been less stable on her feet - no specific cause. She also has osteoporosis. She has pain in her hip, but none in her head or right arm. Dr. Huitron is going to perform hip surgery once cardiac risk assessment is completed Creatinine elevation (Chronic) - this is not new DNR (do not resuscitate) (Acute) DVT prophylaxis (Acute) Leukocytosis (Acute) This was due to trauma and has resolved Anticoagulant therapy (Chronic) She has received vit K to reverse this Atrial fibrillation (Chronic) Her rate is controlled Secondary diagnoses: Collapse of thoracic vertebra due to osteoporosis (Chronic) Diastolic CHF (Chronic) This is compensated and she is undergoing risk assessment. We need to be careful not to give her too much volume Diastolic dysfunction (Chronic) Diverticular disease of colon (Chronic) Essential hypertension (Chronic) Her BP is a little low - from narcotics and trauma. Hypercholesterolemia (Chronic) Impaired fasting glycaemia (Chronic) Osteoporosis (Chronic) ongoing problem Pulmonary hypertension (Chronic) From my point of view, she is ready for surgery once her cardiac risk assessment is completed and her INR is on target.
[2018-11-17] MEDS: Metoprolol Tartrate TAB* 50 mg PO SCH ×3 (09:10→21:01)
[2018-11-17] MEDS: Docusate CAP* 100 MG PO SCH ×2 (09:11→21:00)
--- NOTE | 2018-11-17 09:45 | CONSULT ---
<Katya De León - Last Filed: 11/17/18 09:39> Subjective Date of Service: 11/17/18 - surgical risk stratification Interval History: I had the pleasure seeing Mrs. Roach today on behalf of Dr. Carmona. She is a pleasant 88 year old female patient who follows Dr. Marrero of our practice due to a long standing history of permanent AF on Lopressor 50mg PO BID and coumadin therapy with moderate to severe mitral insufficiency and Tricuspid regurgitation. She was last seen in our practice on 12/15/2017 at that time was doing well. She states over the past year she has noted progressive COLE otherwise has been doing well. This has impacted her ability to care for herself thus, she has an aide that comes in daily to help with ADL and IADLs. She denies chest pain, palpitations, dizziness or syncope. Adds that bilateral lower extremity edema has been stable. Yesterday around 1:30pm while on her way to a doctor's appointment her walker got caught on ice and resulted in her falling. She hit her head, denies LOC and reports injuring her right shoulder and right leg. She denies confusion, difficulty articulating self or vision changes. Family History: Unchanged from Admission Social History: Unchanged from Admission - , lives with her . ambulates with walker. has an aide that helps with ADLS and IADLS. former tobacco user quit 40 years ago. denies ETOH abuse or illegal drug use. Past Medical History: Unchanged from Admission - Permanent AF, correction use of OAC, MR, TR, DHF, HTN, moderate pulmonary HTN, Peptic ulcer, prior GI bleed 2013. Medications Active Medications: Acetaminophen (Tylenol Tab*) 650 mg PO Q6H [facility] Last Admin: 11/17/18 09:10 Dose: 650 mg Docusate Sodium (Colace Cap*) 100 mg PO BID [facility] Last Admin: 11/17/18 09:11 Dose: 100 mg Melatonin (Melatonin) 3 mg PO BEDTIME PRN PRN Reason: SLEEP Last Admin: 11/17/18 04:18 Dose: 3 mg Metoprolol Tartrate (Lopressor Tab*) 50 mg PO BID [facility] Last Admin: 11/17/18 09:10 Dose: 50 mg Morphine Sulfate (Morphine Vial*) 1 mg IV Q4H PRN PRN Reason: SEVERE PAIN Last Admin: 11/17/18 02:39 Dose: 1 mg Oxycodone/Acetaminophen (Percocet 5/325 Tab*) 1 tab PO Q6H PRN PRN Reason: PAIN Home Medications: Furosemide TAB* [Lasix TAB*] 20 mg PO DAILY 90 Days tab 02/25/17 [Rx Confirmed 11/16/18] Metoprolol Tartrate TAB* [Lopressor TAB*] 50 mg PO BID #180 tab 02/25/17 [Rx Confirmed 11/16/18] Spironolactone TAB* [Aldactone TAB 25 MG*] 25 mg PO DAILY #90 tab 02/25/17 [Rx Confirmed 11/16/18] Cholecalciferol TAB* [Vitamin D TAB*] 400 unit PO DAILY 11/16/18 [History Confirmed 11/16/18] Glucosa Bardales 2Kcl/Chondroitin Bardales [Glucosamine & Chondroitin Cap] 1 cap PO BID [History Confirmed 11/16/18] Warfarin TAB(*) [Coumadin TAB(*)] 2.5 mg PO DAILY 11/16/18 [History Confirmed ] Lisinopril 10mg PO daily Review of Systems - Measurements Intake and Output: Intake and Output Last 24 Hours 11/15/18 11/16/18 11/17/18 11/18/18 06:59 06:59 06:59 06:59 Intake Total 0 Output Total 0 325 Balance 0 -325 Weight 122 lb Intake: Oral 0 Output: Urine 0 Stubbs 325 - Review of Systems General Comments: well nourished, NAD, A+O x3 Dermatology: Positive: Other Pulmonary: Positive: Shortness of Breath, Home Oxygen Genitourinay - Female: Positive: Other Musculoskeletal: Positive: Other Hematologic/Lymphatic: Positive: Use of Anticoagulant Review of Systems Statement: All other review of systems negative, unless stated above. + external rotation of right lower extremity, right pretibial surface wound wrapped in curlex. Objective Vital Signs: Temp Pulse Resp BP Pulse Ox 97.7 F 105 18 112/75 100 11/17/18 08:29 11/17/18 08:29 11/17/18 08:53 11/17/18 08:29 11/17/18 08:29 Oxygen Devices in Use Now: Nasal Cannula Appearance: Well nourished, NAD A+O x3 Ears/Nose/Mouth/Throat: NL Teeth, Lips, Gums, Clear Oropharnyx, Mucous Membranes Moist Neck: NL Appearance and Movements; NL JVP, Trachea Midline, No Thyroid Enlargement, Masses Respiratory: Symmetrical Chest Expansion and Respiratory Effort, - - diminished in left upper and lower epstein, otherwise no adventicious breath sounds. Cardiovascular: No Edema, - - Tachy S1, S2 irregular rate and rhythm. no gallop or rub. + mitral murmur Abdominal: NL Sounds; No Tenderness; No Distention, No Hepatosplenomegaly Skin: - - right pretibial surface has + wound dressing in place. Neurological: Alert and Oriented x 3, - - right lower extremity is externally rotated. distal pulses not palpable, per RN + dorsalis pedis pulse with doppler. cool to touch Lines/Tubes/Other Access: Clean, Dry and Intact Stubbs, Clean, Dry and Intact Peripheral IV Laboratory Results: 11/17/18 05:42 11/17/18 05:42 INR (Anticoag Therapy) 1.37 (0.77-1.02) H 11/17/18 05:42 APTT 30.1 seconds (26.0-36.3) 11/17/18 05:42 Total Bilirubin 1.30 mg/dL (0.2-1.0) H 11/16/18 19:35 AST 16 U/L (13-39) 11/16/18 19:35 ALT 16 U/L (7-52) 11/16/18 19:35 Alkaline Phosphatase 73 U/L (34-104) 11/16/18 19:35 Total Protein 5.7 g/dL (6.4-8.9) L 11/16/18 19:35 Albumin 3.9 g/dL (3.2-5.2) 11/16/18 19:35 Globulin 1.8 g/dL (2-4) L 11/16/18 19:35 Albumin/Globulin Ratio 2.2 (1-3) 11/16/18 19:35 Laboratory Results - last 24 hr 11/16/18 11/16/18 11/16/18 17:25 19:35 19:35 WBC 17.1 H RBC 3.58 L Hgb 11.8 L Hct 36 MCV 102 H MCH 33 H MCHC 33 RDW 17 H Plt Count 208 MPV 9.8 Neut % (Auto) 84.6 Lymph % (Auto) 7.1 [place] % (Auto) 7.7 Eos % (Auto) 0.1 Baso % (Auto) 0.5 Absolute Neuts (auto) 14.5 H Absolute Lymphs (auto) 1.2 Absolute Monos (auto) 1.3 H Absolute Eos (auto) 0 Absolute Basos (auto) 0.1 Absolute Nucleated RBC 0 Nucleated RBC % 0.2 INR (Anticoag Therapy) 1.52 H APTT 30.2 Sodium Potassium Chloride Carbon Dioxide Anion Gap BUN Creatinine Est GFR ( Amer) Est GFR (Non-Af Amer) BUN/Creatinine Ratio Glucose POC Glucose (mg/dL) Calcium Total Bilirubin AST ALT Alkaline Phosphatase Total Protein Albumin Globulin Albumin/Globulin Ratio Urine Color Yellow Urine Appearance Cloudy Urine pH 5.0 Ur Specific [place] 1.025 Urine Protein Negative Urine Ketones Trace A Urine Blood 3+ A Urine Nitrate Negative Urine Bilirubin Negative Urine Urobilinogen Negative Ur Leukocyte Esterase Negative Urine WBC (Auto) Trace(0-5/hpf) Urine RBC (Auto) 3+(>10/hpf) A Ur Squamous Epith Cells Present A Urine Bacteria Absent Urine Glucose Negative Blood Type Antibody Screen 11/16/18 11/16/18 11/17/18 19:35 19:35 05:42 WBC RBC Hgb Hct MCV MCH MCHC RDW Plt Count MPV Neut % (Auto) Lymph % (Auto) [place] % (Auto) Eos % (Auto) Baso % (Auto) Absolute Neuts (auto) Absolute Lymphs (auto) Absolute Monos (auto) Absolute Eos (auto) Absolute Basos (auto) Absolute Nucleated RBC Nucleated RBC % INR (Anticoag Therapy) APTT Sodium 138 140 Potassium 4.7 4.8 Chloride 102 104 Carbon Dioxide 28 31 Anion Gap 8 5 BUN 34 H 33 H Creatinine 1.02 H 1.00 H Est GFR ( Amer) 62.0 63.5 Est GFR (Non-Af Amer) 51.3 52.4 BUN/Creatinine Ratio 33.3 H 33.0 H Glucose 117 H 123 H POC Glucose (mg/dL) Calcium 9.7 9.2 Total Bilirubin 1.30 H AST 16 ALT 16 Alkaline Phosphatase 73 Total Protein 5.7 L Albumin 3.9 Globulin 1.8 L Albumin/Globulin Ratio 2.2 Urine Color Urine Appearance Urine pH Ur Specific [place] Urine Protein Urine Ketones Urine Blood Urine Nitrate Urine Bilirubin Urine Urobilinogen Ur Leukocyte Esterase Urine WBC (Auto) Urine RBC (Auto) Ur Squamous Epith Cells Urine Bacteria Urine Glucose Blood Type A Positive Antibody Screen Negative 11/17/18 11/17/18 11/17/18 05:42 05:42 08:09 WBC 9.6 RBC 2.99 L Hgb 10.2 L Hct 30 L MCV 101 H MCH 34 H MCHC 34 RDW 17 H Plt Count 177 MPV 9.7 Neut % (Auto) 73.4 Lymph % (Auto) 13.3 [place] % (Auto) 12.6 Eos % (Auto) 0.1 Baso % (Auto) 0.6 Absolute Neuts (auto) 7.1 Absolute Lymphs (auto) 1.3 Absolute Monos (auto) 1.2 H Absolute Eos (auto) 0 Absolute Basos (auto) 0.1 Absolute Nucleated RBC 0 Nucleated RBC % 0.2 INR (Anticoag Therapy) 1.37 H APTT 30.1 Sodium Potassium Chloride Carbon Dioxide Anion Gap BUN Creatinine Est GFR ( Amer) Est GFR (Non-Af Amer) BUN/Creatinine Ratio Glucose POC Glucose (mg/dL) 120 H Calcium Total Bilirubin AST ALT Alkaline Phosphatase Total Protein Albumin Globulin Albumin/Globulin Ratio Urine Color Urine Appearance Urine pH Ur Specific [place] Urine Protein Urine Ketones Urine Blood Urine Nitrate Urine Bilirubin Urine Urobilinogen Ur Leukocyte Esterase Urine WBC (Auto) Urine RBC (Auto) Ur Squamous Epith Cells Urine Bacteria Urine Glucose Blood Type Antibody Screen Diagnostic Imaging: Echo from today is pending. CT Head per radiology report no acute intracranial abnormality. EKG Data: Todays EKG was reviewed. Afib rate 94 rare PVCs. Assessment/Plan #1 s/p mechanical fall resulting in comminuted angulated intertrochanteric fracture of right femur. Dr. Huitron following. The patient does not have a h/o known CAD. echo is currently pending given h/o moderate to severe mitral insufficiency and TR. RCRI risk is 1 representing 0.9% risk of major cardiac event. Given h/o diastolic heart failure with mitral and tricuspid regurgitation would monitor fluid status closely. She is on Aldactone 25mg Po daily and Lasix 20mg POdaily at home. She has a tendency for symptomatic hypotension in the past ACEI had to be reduced. Would resume OAC as soon as possible given h/o permanent AF and chads vasc-5. She is currently tachycardic which is likely due to physiologic response. Continue Lopressor 50mg PO BID. Will consider Digoxin in the future given BP. Limit interruption in Bblocker therapy postoperatively. #2 Permanent AF; chads Vasc 5 historically on Coumadin with goal INR 2-3 managed by PCP. Rates are elevated despite Lopressor 50mg PO BID which is her home dose. This is likely due to above #1. Will consider adding Digoxin in the future given BP. Continue to monitor on telemetry. INR today is 1.3 would recommend resuming coumadin as soon as possible when able. #3 h/o DHF with hyperdynamic LVEF; apppears compensated on exam today. Her home regimen is Lopressor 50mg PO BID, Lasix 20/day and Aldactone 25mg/day. monitor fluid status closely post op. #4 h/o Moderate to severe MR and TR; secondary to AF with severe biatrial dilatation. Compensated on exam. On ACEI at home in combination with lasix and aldactone. 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 Wears continuous O2 at home. denies increased sOB at this time. Dr. Knapp following. #6 Pending course. Doppler pulses were needed to obtain distal pulses. Patient is a DNR. Await echo for final risk stratification will discuss plan of care with Dr. Carmona Attending: Adarsh Carmona <Adarsh Carmona - Last Filed: 11/17/18 18:03> Medications Active Medications: Acetaminophen (Tylenol Tab*) 650 mg PO Q6H [facility] Last Admin: 11/17/18 17:20 Dose: 650 mg Docusate Sodium (Colace Cap*) 100 mg PO BID [facility] Last Admin: 11/17/18 09:11 Dose: 100 mg Melatonin (Melatonin) 3 mg PO BEDTIME PRN PRN Reason: SLEEP Last Admin: 11/17/18 04:18 Dose: 3 mg Metoprolol Tartrate (Lopressor Tab*) 50 mg PO BID [facility] Last Admin: 11/17/18 17:19 Dose: 50 mg Morphine Sulfate (Morphine Vial*) 1 mg IV Q4H PRN PRN Reason: SEVERE PAIN Last Admin: 11/17/18 02:39 Dose: 1 mg Oxycodone/Acetaminophen (Percocet 5/325 Tab*) 1 tab PO Q6H PRN PRN Reason: PAIN Home Medications: Furosemide TAB* [Lasix TAB*] 40 mg PO DAILY 90 Days tab 02/25/17 [Rx Confirmed 11/16/18] Metoprolol Tartrate TAB* [Lopressor TAB*] 50 mg PO BID #180 tab 02/25/17 [Rx Confirmed 11/16/18] Spironolactone TAB* [Aldactone TAB 25 MG*] 25 mg PO DAILY #90 tab 02/25/17 [Rx Confirmed 11/16/18] Cholecalciferol TAB* [Vitamin D TAB*] 400 unit PO DAILY 11/16/18 [History Confirmed 11/16/18] Glucosa Bardales 2Kcl/Chondroitin Bardales [Glucosamine & Chondroitin Cap] 1 cap PO BID [History Confirmed 11/16/18] Warfarin TAB(*) [Coumadin TAB(*)] 2.5 mg PO DAILY 11/16/18 [History Confirmed ] Review of Systems - Measurements Intake and Output: Intake and Output Last 24 Hours 11/15/18 11/16/18 11/17/18 11/18/18 06:59 06:59 06:59 06:59 Intake Total 0 360 Output Total 0 425 Balance 0 -65 Weight 122 lb Intake: Oral 0 360 Output: Urine 0 Stubbs 425 - Review of Systems Review of Systems Statement: All other review of systems negative, unless stated above. Objective Vital Signs: Temp Pulse Resp BP Pulse Ox 98.2 F 92 18 92/62 100 11/17/18 15:13 11/17/18 15:13 11/17/18 15:13 11/17/18 15:13 11/17/18 15:13 Laboratory Results: 11/17/18 05:42 11/17/18 05:42 INR (Anticoag Therapy) 1.37 (0.77-1.02) H 11/17/18 05:42 APTT 30.1 seconds (26.0-36.3) 11/17/18 05:42 Total Bilirubin 1.30 mg/dL (0.2-1.0) H 11/16/18 19:35 AST 16 U/L (13-39) 11/16/18 19:35 ALT 16 U/L (7-52) 11/16/18 19:35 Alkaline Phosphatase 73 U/L (34-104) 11/16/18 19:35 Total Protein 5.7 g/dL (6.4-8.9) L 11/16/18 19:35 Albumin 3.9 g/dL (3.2-5.2) 11/16/18 19:35 Globulin 1.8 g/dL (2-4) L 11/16/18 19:35 Albumin/Globulin Ratio 2.2 (1-3) 11/16/18 19:35 Assessment/Plan Patient seen and examined. Note from GEAR LAPPER reviewed. Patient admitted with hip fracture after mechanical fall. History of HFpEF and A fib. Pt stable for OR to do hip replacement No medication changes warrented
--- NOTE | 2018-11-17 09:51 | ECHO ---
Patient: CLARENCE PRASAD [facility] Rec#: [id number] : 1930 Date: 11/17/2018 Age: 88y Height: 165 cm / 65.0 in Weight: 55 kg / 121.2 lbs Sex: F BSA: 1.6 Room#: [facility] Admit Date#: 11/16/2018 Type: Inpatient Referring: Ngoc Heredia Reading: Adarsh Carmona MD Air Pollution Control Engineer: Lynnette Zimmer RDCS,RDMS CC: Baldemar Knapp MD Transthoracic Echocardiogram Indication: CHF BP: 98/67 HR: 121 Rhythm: A-Fib Findings History: HTN, AFIB, CHF Technical Comments: The study quality is good. Left Ventricle: The left ventricular chamber size is decreased. There is no left ventricular hypertrophy. The left ventricle appears hyperdynamic. The estimated ejection fraction is 60-65%. There is septal flattening of the interventricular septum consistent with right ventricular volume or pressure overload. The assessment of diastolic function is non-diagnostic. Left Atrium: The left atrium is severely dilated. Right Ventricle: The right ventricle is mildly dilated. The right ventricular global systolic function is normal. Right Atrium: The right atrial cavity size is severely dilated. Aortic Valve: The aortic valve is trileaflet. The aortic valve leaflets are mildly thickened. There is no evidence of aortic regurgitation. There is no evidence of aortic stenosis. Mitral Valve: The mitral valve leaflets are mildly thickened. There is moderate to severe mitral regurgitation. There is no evidence of mitral stenosis. Tricuspid Valve: The tricuspid valve leaflets are normal. There is moderate to severe tricuspid regurgitation. No pulmonary hypertension is noted. Pulmonic Valve: The pulmonic valve appears normal. There is mild pulmonic regurgitation. Pericardium: There is no significant pericardial effusion. Aorta: The aortic root appears normal. There is no dilatation of the aortic arch. Pulmonary Artery: The main pulmonary artery appears normal. Venous: The inferior vena cava appears normal in size. There is a greater than 50% respiratory change in the inferior vena cava dimension. Conclusions The left ventricle appears hyperdynamic. The estimated ejection fraction is 60-65%. There is septal flattening of the interventricular septum consistent with right ventricular volume or pressure overload. The left atrium is severely dilated. There is no evidence of aortic stenosis. There is moderate to severe mitral regurgitation. Central MR There is moderate to severe tricuspid regurgitation. No pulmonary hypertension is noted. There is no significant pericardial effusion. Compared to study of04/19/15, the LV function is the same THe Degree of MR has increased Measurements Name Value Normal Range RVIDd (AP) 2D 3.3 cm (0.9 - 2.6) RVDdMajor (2D) 2.2 cm (2.2 - 4.4) RAd ISD 4CH 7 cm (3.4 - 4.9) RA (A4C)W 5.2 cm (2.9 - 4.6) IVSd (2D) 1 cm (0.6 - 1) LVPWd (2D) 1 cm (0.6 - 1) LVIDd (2D) 3.3 cm (3.6 - 5.4) LVIDs (2D) 2.2 cm - LV FS (2D) 34 % (25 - 45) Aortic Annulus 2 cm (1.4 - 2.6) Ao root diameter (2D) 3.1 cm (2.1 - 3.5) Ascending Ao 2.9 cm (2.1 - 3.4) Aortic arch 2 cm (1.8 - 3.4) LA dimension (AP) 2D 4.6 cm (2.3 - 3.8) LAd ISD 4CH 7 cm (2.9 - 5.3) LA ISD 4CH W 5.2 cm (2.5 - 4.5) Name Value Normal Range LA ESV BP (A/L) index 57 ml/m2 - Name Value Normal Range MV E-wave Vmax 1.1 m/sec - MV deceleration time 103 msec - LV lateral e' Vmax 0.1 m/sec - LV E:e' lateral ratio 11 ratio - Name Value Normal Range AV Vmax 1 m/sec - AV VTI 15 cm - AV peak gradient 4 mmHg - AV mean gradient 2 mmHg - LVOT diameter 2 cm - LVOT Vmax 0.7 m/sec - LVOT VTI 13 cm - LVOT peak gradient 2 mmHg - LVOT mean gradient 1 mmHg - JORDI (continuity Vmax) 2.3 cm2 - JORDI (continuity Vmax) in2.7 cm2/m2 - JOSE ENRIQUE Vmax 0.4 m/sec - Name Value Normal Range MV Vmax 1.2 m/sec - MV VTI 15 cm - MV peak gradient 6 mmHg - MV mean gradient 3 mmHg - MV PHT 50 msec - MR volume (PISA) 2 ml - MR ERO 0.02 cm2 - MR PISA radius 0.2 cm - MR alias Vmax 39 cm/sec - MVA (PHT) 4.4 cm2 - MVA (continuity VTI) 2.7 cm2 - Name Value Normal Range TR Vmax 2.2 m/sec - TR peak gradient 19 mmHg - RAP 8 mmHg - RVSP 27 mmHg - IVC diameter 1.9 cm - Name Value Normal Range PV Vmax 0.7 m/sec - PV peak gradient 2 mmHg -
--- NOTE | 2018-11-17 12:31 | CONS ---
ORTHOPEDIC CONSULT NOTE: DATE OF CONSULT: 11/17/18 CHIEF COMPLAINT: Right hip pain. HISTORY OF PRESENT ILLNESS: Ms. Roach is an 88-year-old female who slipped while using her walker on a snow bank yesterday, 11/16/18. She fell on to her right side. She immediately had 10/10 pain in the right hip. She was unable to ambulate or move the right lower extremity. She was [facility] to [facility] by ambulance. She was found to have comminuted intratrochanteric right hip fracture. The patient was admitted to the hospitalist team for preop management. Due to significant cardiac history, she will require cardiac clearances and is not currently cleared. The patient is normally on Coumadin and admission INR is 1.5. PAST MEDICAL HISTORY: Diastolic heart failure, atrial fibrillation, hypertension, home oxygen, HLD, impaired fasting glucose, osteoporosis with multiple spine pathologic fractures. PAST SURGICAL HISTORY: Bilateral ankle fracture ORIF. HOME MEDICATIONS: 1. Furosemide 40 mg p.o. daily. 2. Lisinopril/hydrochlorothiazide 20/12.5 one tablet p.o. daily. 3. Warfarin 2.5/5 mg p.o. daily, alternating days. 4. Cholecalciferol 400 units p.o. at bedtime. 5. Metoprolol 25 mg p.o. t.i.d. 6. Spironolactone 12.5 mg p.o. daily. ALLERGIES: No known drug allergies. FAMILY HISTORY: Negative. SOCIAL HISTORY: The patient lives with her . Her daughter is her health care proxy. She has a home health lpn that cares for her and her since they are often unstable with ambulation. History of tobacco use, but over 40 years ago. Minimal alcohol use. REVIEW OF SYSTEMS: 14 systems were reviewed with the patient, positive for the falls and imbalance. Right hip pain. She denies upper extremity or left lower extremity pain. Otherwise, the patient reports review of systems as negative or not relevant. PHYSICAL EXAM: Vitals: Temperature 98.1, pulse of 87 but on telemetry there is SVT up to 150, blood pressure 98/67. General: The patient is a thin female in no apparent distress. Alert and oriented x3. Pleasant mood and appropriate affect. Gait not assessed. HEENT: Atraumatic and normocephalic. Pupils are equal and reactive to light. Chest: Unlabored breathing. Abdomen: Soft, nontender, and nondistended. Bilateral upper extremities: The patient can forward flex with her shoulders to 100 degrees bilaterally with no pain. She has 5/5 cryptologic linguist strength. Scattered bruises along the upper extremities, but no bony tenderness to palpation. 2+ palpable radial pulses. Right lower extremity : The patient's leg is extremely awkward angle of external rotation. She has tenderness along the entire thigh. No tenderness along the tibia. Her foot has great toe which is a bluish color. I cannot palpate pulses, DP or PT. She reports sensation to light touch in all nerve distributions. She has cold temperature of the foot which is a small amount colder than the opposite side. The patient has an open skin wound along the tibia. Left lower extremity: No open skin wounds, multiple bruises. She flexes at the hip and knee without any pain. Distally, she does have cool foot to touch. Less bluish discoloration of the toes. Palpable DP pulse 1+. DIAGNOSTIC STUDIES/LAB DATA: 11/17/18 labs show white blood cell of 9.6, hematocrit 30, platelets of 177, INR 1.37. Sodium 140, potassium 4.8, BUN and creatinine 33 and 1. Urine cultures show some trace ketones, blood, squamous cells. No white blood cells or leukocyte esterase. Radiographs: Multiple views of the right hip show a comminuted displaced intratrochanteric fracture with significant osteopenia. Right shoulder films show a possible subacute or chronic humeral head fracture with significant osteophyte formation. I see no obvious acute fracture. Brain CT and cervical spine CT with no obvious acute abnormalities, more chronic changes and osteopenia. ASSESSMENT AND PLAN: Ms. Roach is an 88-year-old female with significant cardiac history status post fall with a comminuted displaced right intratrochanteric hip fracture. The patient can eat at this time. She is not medically optimized for surgery. As I am examining her, she has SVT to 150. She does have a cardiology consult in. They have ordered an echo as well. We will await better heart rate control , results of the echo, and cardiac clearance before we proceed. The patient's INR is 1.4. Our goal would be to have this around 1.0 before we proceed. The patient and I discussed the reasons for waiting on her surgery. The patient and I discussed that I would like to straighten out her leg to improve vascular supply to her toes. She likely has chronic peripheral vascular disease and reports her feet are often cold. I do not like the bluish discoloration in her toe and the difference in pulses. The patient's nurse administered 0.25 mg of Dilaudid IV. I did straighten the patient's leg. I immediately had a 1+ palpable DP pulse. We will continue careful q.4 hour vascular checks to the right lower extremity and try to keep the leg in a more straight position. The patient tolerated the procedure very well. Orthopedics to follow. We hope the patient will be medically optimized today and cleared for surgery tomorrow on 11/18/18. The patient and I discussed the operative and nonoperative treatment options. She would like to proceed with operative fixation. I would recommend a long cephalomedullary device. [id number]/CPS #: [id number] MTDD
[2018-11-18] MEDS ORDERED: Metoprolol Tartrate IV* 1 MG/ML 5 ML VIAL IV ONE ×2 (03:12→06:15)
[2018-11-18] MEDS: Acetaminophen TAB* 325 MG PO SCH ×4 (03:30→21:25)
[2018-11-18 06:05] LABS: Hematocrit 28 % (35-47); Hemoglobin 9.5 g/dl (12.0-16.0); Mean Corpuscular HGB Conc 34 g/dl (31-36); Mean Corpuscular Hemoglobin 35 pg (27-31); Mean Corpuscular Volume 101 fL (80-97); Mean Platelet Volume 10.2 fL (7.4-10.4); Platelet Count 174 10^3/ul (150-450); Red Blood Count 2.76 10^6/ul (4.00-5.40); Red Cell Distribution Width 17 % (10.5-15); White Blood Count 11.6 10^3/ul (3.5-10.8)
[2018-11-18 06:29] LABS: BUN/Creatinine Ratio 41.2 (8-20); Calcium 9.4 mg/dL (8.6-10.3); EGFR African American 65.7 (>60); EGFR Non-African American 54.3 (>60); Magnesium 1.8 mg/dL (1.9-2.7); Potassium 4.9 mmol/L (3.5-5.0)
[2018-11-18 07:00] LABS: ABS Basophils 0.1 10^3/ul (0-0.2); ABS Eosinophils 0 10^3/ul (0-0.6); ABS Lymphocytes 1.7 10^3/ul (1.0-4.8); ABS Monocytes 1.6 10^3/ul (0-0.8); ABS Neutrophils 8.2 10^3/ul (1.5-7.7); ABS Nucleated RBC 0 10^3/ul; Eosinophil % 0.3 %; Nucleated Red Blood Cells % 0.4
[2018-11-18] MEDS ORDERED: LORazepam INJ* 2 MG/ML 1 ML VIAL IV PUSH PRN (07:39)
[2018-11-18] MEDS ORDERED: Metoprolol Tartrate IV* 1 MG/ML 5 ML VIAL IV PRN (07:40)
--- NOTE | 2018-11-18 07:47 | PN ---
Subjective - Subjective Reason for Note: Progress Note History: She is frustrated and angry this morning because she is waiting for surgery. This has pushed her heart rate up. Other than that, she is feeling little pain or discomfort. She has no chest pain or dyspnea. Active Problems: Active Problems Fall from slipping on ice (Acute) W00.9XXA Intertrochanteric fracture of right femur (Acute) S72.141A - Mechanical fall on ice - communated angulated intertrochanteric fx of the right femur - Dr Huitron to see patient tomorrow. - Patient RCRI 1 point of 6.0% - Due to patients exercise intolerance, supplemental O2 requirement, and hx of diastiolic heart failure, I have ordered an echo for the morning. In addition, I have contacted cardiology to consult for cardiac clearance prior to surgery Leukocytosis (Acute) D72.829 - WBC is 17.1 - I suspected this is 2/2 to fall - CBC to be rechecked tomorrow Anticoagulant therapy (Chronic) Z79.01 - INR 1.52 - Hold Warfarin - 2.5 mg Vitamin K ordered. 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 - Reassess as soon as possible. - SCDs ordered Diastolic CHF (Chronic) I50.30 - Last Echo in 2017, therefore, repeat echo for the morning. - Patient is established with [facility]. Dr Carmona called made aware of patient. 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 Essential hypertension (Chronic) I10 - Cont metoprolol - Hold Lasix and Spironolactone Hypercholesterolemia (Chronic) E78.0 - Defer to primary care Impaired fasting glycaemia (Chronic) R73.01 - Finger sticks ordered, but no coverage Osteoporosis (Chronic) M81.0 Pulmonary hypertension (Chronic) I27.2 Current Medications: Current Medications Acetaminophen (Tylenol Tab*) 650 mg PO Q6H [facility] Last Admin: 11/18/18 03:30 Dose: Not Given Docusate Sodium (Colace Cap*) 100 mg PO BID [facility] Last Admin: 11/17/18 21:00 Dose: 100 mg Lorazepam (Ativan Inj*) 0.5 mg IV PUSH Q6H PRN PRN Reason: ANXIETY Melatonin (Melatonin) 3 mg PO BEDTIME PRN PRN Reason: SLEEP Last Admin: 11/17/18 21:00 Dose: 3 mg Metoprolol Tartrate (Lopressor Tab*) 50 mg PO BID [facility] Last Admin: 11/17/18 21:01 Dose: Not Given Metoprolol Tartrate (Lopressor Iv*) 5 mg IV Q6H PRN PRN Reason: HEART RATE/PULSE Morphine Sulfate (Morphine Vial*) 1 mg IV Q4H PRN PRN Reason: SEVERE PAIN Last Admin: 11/17/18 21:01 Dose: 1 mg Oxycodone/Acetaminophen (Percocet 5/325 Tab*) 1 tab PO Q6H PRN PRN Reason: PAIN Home Medications: Home Medications Medication Instructions Recorded Confirmed Type Furosemide TAB* [Lasix TAB*] 40 mg PO DAILY 90 Days tab 02/25/17 11/16/18 Rx Metoprolol Tartrate TAB* 50 mg PO BID #180 tab 02/25/17 11/16/18 Rx [Lopressor TAB*] Spironolactone TAB* [Aldactone TAB 25 mg PO DAILY #90 tab 02/25/17 11/16/18 Rx 25 MG*] Cholecalciferol TAB* [Vitamin D 400 unit PO DAILY 11/16/18 11/16/18 History TAB*] Glucosa Bardales 2Kcl/Chondroitin Bardales 1 cap PO BID 11/16/18 11/16/18 History [Glucosamine & Chondroitin Cap] Warfarin TAB(*) [Coumadin TAB(*)] 2.5 mg PO DAILY 11/16/18 11/16/18 History Allergies: Allergies Allergy/AdvReac Type Severity Reaction Status Date / Time No Known Allergies Allergy Verified 11/16/18 14:32 Objective - Vital Signs Vital Signs: Vital Signs 11/17/18 11/17/18 11/17/18 08:19 08:29 08:53 Temperature 97.9 F 97.7 F Pulse Rate 103 105 Respiratory 20 18 Rate Blood Pressure 108/73 112/75 (mmHg) O2 Sat by Pulse 79 100 Oximetry 11/17/18 11/17/18 11/17/18 12:01 12:58 15:13 Temperature 97.6 F 98.2 F Pulse Rate 73 92 Respiratory 20 18 Rate Blood Pressure 88/63 90/67 92/62 (mmHg) O2 Sat by Pulse 100 100 Oximetry 11/17/18 11/17/18 11/17/18 19:34 20:00 21:01 Temperature 98.1 F Pulse Rate 83 Respiratory 18 20 18 Rate Blood Pressure 100/72 (mmHg) O2 Sat by Pulse 100 Oximetry 11/17/18 11/18/18 11/18/18 23:51 00:04 00:36 Temperature 98.1 F Pulse Rate 106 Respiratory 18 16 Rate Blood Pressure 99/58 (mmHg) O2 Sat by Pulse 100 Oximetry 11/18/18 11/18/18 11/18/18 04:46 04:54 06:22 Temperature 97.6 F Pulse Rate 109 Respiratory 24 Rate Blood Pressure 90/52 112/70 (mmHg) O2 Sat by Pulse 100 Oximetry - Intake and Output Intake and Output: Intake & Output 11/15/18 11/16/18 11/17/18 11/18/18 11:59 11:59 11:59 11:59 Intake Total 0 360 Output Total 325 480 Balance -325 -120 Weight 122 lb Intake: Oral 0 360 Output: Urine 0 Stubbs 325 480 ADLs: Meal Record Start: 11/16/18 22: 22 Freq: DAILY@0900,1400,1800 Status: Active Protocol: Created 11/16/18 22:22 System (Rec: 11/16/18 22:22 System [email or web address]) Document 11/17/18 13:59 [id number] (Rec: 11/17/18 14:00 [id number] [email or web address]) Document 11/17/18 17:22 [id number] (Rec: 11/17/18 17:22 [id number] [email or web address]) Intake and Output Start: 11/16/18 14: 32 Freq: Status: Active Protocol: Created 11/16/18 14:32 System (Rec: 11/16/18 14:32 System [id number]) Intake and Output Start: 11/16/18 22: 22 Freq: DAILY@0600,1400,2200 Status: Active Protocol: Created 11/16/18 22:22 System (Rec: 11/16/18 22:22 System [email or web address]) Document 11/17/18 06:00 [id number] (Rec: 11/17/18 06:01 [id number] [email or web address]) Document 11/17/18 14:00 [id number] (Rec: 11/17/18 15:34 [id number] [email or web address]) Document 11/17/18 22:00 [id number] (Rec: 11/17/18 22:22 [id number] [email or web address]) Document 11/18/18 06:00 [id number] (Rec: 11/18/18 07:36 [id number] [id number]) - Physical Exam General Physical Exam Comment: She is angry General: No Cyanosis, Yes Anemia, No Jaundice, No Clubbing Lungs and Chest: Yes: Chest Expansion Full, Chest Expansion Symetrica, Vessicular Breath Sounds. No: Crackles, Wheezes Heart Rate and Rhythm: Tachycardia - irregular Additional Cardiovascular: Yes: Normal Heart Sounds, Heart Murmur. No: Pedal Edema Abdominal Exam: Yes: Soft, Bowel Sounds Present. No: Distention, Hepatomegaly, Abdominal Tenderness - Extremities Cranial Nerves II-XII Intact: Yes Limbs: Normal Power - Neuro Orientation: A/O x3 Psychiatric: Anxious Speech: Normal Results - Results Lab Results: Laboratory Results - last 24 hr 11/17/18 11/17/18 11/17/18 08:09 11:21 16:53 WBC RBC Hgb Hct MCV MCH MCHC RDW Plt Count MPV Neut % (Auto) Lymph % (Auto) [place] % (Auto) Eos % (Auto) Baso % (Auto) Absolute Neuts (auto) Absolute Lymphs (auto) Absolute Monos (auto) Absolute Eos (auto) Absolute Basos (auto) Absolute Nucleated RBC Nucleated RBC % INR (Anticoag Therapy) Sodium Potassium Chloride Carbon Dioxide Anion Gap BUN Creatinine Est GFR ( Amer) Est GFR (Non-Af Amer) BUN/Creatinine Ratio Glucose POC Glucose (mg/dL) 120 H 125 H 117 H Calcium Magnesium 01/11/18/18 11/18/18 22:13 05:28 05:28 WBC 11.6 H RBC 2.76 L Hgb 9.5 L Hct 28 L MCV 101 H MCH 35 H MCHC 34 RDW 17 H Plt Count 174 MPV 10.2 Neut % (Auto) 70.5 Lymph % (Auto) 15.0 [place] % (Auto) 13.6 Eos % (Auto) 0.3 Baso % (Auto) 0.6 Absolute Neuts (auto) 8.2 H Absolute Lymphs (auto) 1.7 Absolute Monos (auto) 1.6 H Absolute Eos (auto) 0 Absolute Basos (auto) 0.1 Absolute Nucleated RBC 0 Nucleated RBC % 0.4 INR (Anticoag Therapy) 1.00 Sodium Potassium Chloride Carbon Dioxide Anion Gap BUN Creatinine Est GFR ( Amer) Est GFR (Non-Af Amer) BUN/Creatinine Ratio Glucose POC Glucose (mg/dL) 143 H Calcium Magnesium 11/18/18 05:28 WBC RBC Hgb Hct MCV MCH MCHC RDW Plt Count MPV Neut % (Auto) Lymph % (Auto) [place] % (Auto) Eos % (Auto) Baso % (Auto) Absolute Neuts (auto) Absolute Lymphs (auto) Absolute Monos (auto) Absolute Eos (auto) Absolute Basos (auto) Absolute Nucleated RBC Nucleated RBC % INR (Anticoag Therapy) Sodium 137 Potassium 4.9 Chloride 102 Carbon Dioxide 29 Anion Gap 6 BUN 40 H Creatinine 0.97 H Est GFR ( Amer) 65.7 Est GFR (Non-Af Amer) 54.3 BUN/Creatinine Ratio 41.2 H Glucose 123 H POC Glucose (mg/dL) Calcium 9.4 Magnesium 1.8 L Other Results/Reports: T. Conclusions The left ventricle appears hyperdynamic. The estimated ejection fraction is 60-65%. There is septal flattening of the interventricular septum consistent with right ventricular volume or pressure overload. The left atrium is severely dilated. There is no evidence of aortic stenosis. There is moderate to severe mitral regurgitation. Central MR There is moderate to severe tricuspid regurgitation. No pulmonary hypertension is noted. There is no significant pericardial effusion. Compared to study of04/19/15, the LV function is the same THe Degree of MR has increased Assessment - Problem List Assessment: Patient Problems Fall from slipping on ice (Acute) Intertrochanteric fracture of right femur (Acute) Leukocytosis (Acute) Anticoagulant therapy (Chronic) Atrial fibrillation (Chronic) Collapse of thoracic vertebra due to osteoporosis (Chronic) Creatinine elevation (Chronic) DNR (do not resuscitate) (Chronic) DVT prophylaxis (Chronic) Diastolic CHF (Chronic) Diastolic dysfunction (Chronic) Diverticular disease of colon (Chronic) Essential hypertension (Chronic) Hypercholesterolemia (Chronic) Impaired fasting glycaemia (Chronic) Osteoporosis (Chronic) Pulmonary hypertension (Chronic) Plan: Fall from slipping on ice (Acute)Intertrochanteric fracture of right femur ( Acute) She is due for surgery today. I have reviewed the transthoracic echocardiogram that shows mitral regurgitation. I have also read Dr. Sabrina Carmona's cardiological opion - there is no reason for any further cardiac risk assessment as she is hemodynamically stable. This morning she is anxious and angry and this has contributed to a tachycardia. She has agreed to lorazepam to calm her down as she recognizes this is not helpful. I have also reassured her that surgery is not delayed and will proceed today. She is NPO and there are no further measures required prior to surgery as her INR is now on target Leukocytosis (Acute) This has come down Anticoagulant therapy (Chronic) Warfarin is reversed Atrial fibrillation (Chronic) I am giving her parenteral metoprolol to slow her heart beat and also lorazepam Secondary diagnoses Collapse of thoracic vertebra due to osteoporosis (Chronic) Creatinine elevation (Chronic) DNR (do not resuscitate) (Chronic) DVT prophylaxis (Chronic) Diastolic CHF (Chronic) Diastolic dysfunction (Chronic) Diverticular disease of colon (Chronic) Essential hypertension (Chronic) Hypercholesterolemia (Chronic) Impaired fasting glycaemia (Chronic) Osteoporosis (Chronic) Pulmonary hypertension (Chronic) I spoke with the patient and she appears reassured. There are no medical barriers to surgery
[2018-11-18] MEDS ORDERED: Digoxin IV* 0.5 MG/2 ML AMP (0.25 MG/ML) IV SLOW PU ONE ×2 (08:38→11:45)
--- NOTE | 2018-11-18 08:45 | PN ---
<Katya De León - Last Filed: 11/18/18 08:39> Subjective Date of Service: 11/18/18 - DHF, AF, MR Interval History: No events last night. Patient sleeping upon entering room, offers no complaints is anxious for surgery. she denies chest pain, sensation of heart racing, palpitations, dizziness. I spoke with Rina ARMSTRONG who has been taking care of the patient and apparently she has not been able to administer IV Lopressor due to SBP 90's. I did request manual BP and it did infact correlate with automatic BP readings. Patient is asymptomatic. Medications Active Medications: Acetaminophen (Tylenol Tab*) 650 mg PO Q6H [facility] Last Admin: 11/18/18 03:30 Dose: Not Given Digoxin (Digoxin Iv*) 0.25 mg IV SLOW PU ONCE ONE Stop: 11/18/18 08:39 Docusate Sodium (Colace Cap*) 100 mg PO BID [facility] Last Admin: 11/17/18 21:00 Dose: 100 mg Lorazepam (Ativan Inj*) 0.5 mg IV PUSH Q6H PRN PRN Reason: ANXIETY Last Admin: 11/18/18 08:05 Dose: 0.5 mg Melatonin (Melatonin) 3 mg PO BEDTIME PRN PRN Reason: SLEEP Last Admin: 11/17/18 21:00 Dose: 3 mg Metoprolol Tartrate (Lopressor Tab*) 50 mg PO BID [facility] Last Admin: 11/17/18 21:01 Dose: Not Given Metoprolol Tartrate (Lopressor Iv*) 5 mg IV Q6H PRN PRN Reason: HEART RATE/PULSE Morphine Sulfate (Morphine Vial*) 1 mg IV Q4H PRN PRN Reason: SEVERE PAIN Last Admin: 11/17/18 21:01 Dose: 1 mg Oxycodone/Acetaminophen (Percocet 5/325 Tab*) 1 tab PO Q6H PRN PRN Reason: PAIN Objective Vital Signs: Temp Pulse Resp BP Pulse Ox 97.6 F 109 18 93/73 100 11/18/18 04:46 11/18/18 04:46 11/18/18 08:05 11/18/18 08:05 11/18/18 04:46 Oxygen Devices in Use Now: Nasal Cannula Appearance: Well nourished, NAD A+O x3 Ears/Nose/Mouth/Throat: NL Teeth, Lips, Gums, Clear Oropharnyx, Mucous Membranes Moist Neck: NL Appearance and Movements; NL JVP, Trachea Midline, No Thyroid Enlargement, Masses Respiratory: Symmetrical Chest Expansion and Respiratory Effort, - - diminished in left upper and lower epstein, otherwise no adventicious breath sounds. Cardiovascular: No Edema, - - Tachy S1, S2 irregular rate and rhythm. no gallop or rub. + mitral murmur Abdominal: NL Sounds; No Tenderness; No Distention, No Hepatosplenomegaly Skin: - - right pretibial surface has + wound dressing in place., bruising noted on posterior aspect of head. Neurological: Alert and Oriented x 3, - - right lower extremity is externally rotated. distal pulses not palpable, per RN + dorsalis pedis pulse with doppler. cool to touch Lines/Tubes/Other Access: Clean, Dry and Intact Stubbs, Clean, Dry and Intact Peripheral IV Laboratory Results: 11/18/18 05:28 11/18/18 05:28 INR (Anticoag Therapy) 1.00 (0.77-1.02) 11/18/18 05:28 APTT 30.1 seconds (26.0-36.3) 11/17/18 05:42 Total Bilirubin 1.30 mg/dL (0.2-1.0) H 11/16/18 19:35 AST 16 U/L (13-39) 11/16/18 19:35 ALT 16 U/L (7-52) 11/16/18 19:35 Alkaline Phosphatase 73 U/L (34-104) 11/16/18 19:35 Total Protein 5.7 g/dL (6.4-8.9) L 11/16/18 19:35 Albumin 3.9 g/dL (3.2-5.2) 11/16/18 19:35 Globulin 1.8 g/dL (2-4) L 11/16/18 19:35 Albumin/Globulin Ratio 2.2 (1-3) 11/16/18 19:35 Laboratory Results - last 24 hr 11/17/18 11/17/18 11/17/18 11:21 16:53 22:13 WBC RBC Hgb Hct MCV MCH MCHC RDW Plt Count MPV Neut % (Auto) Lymph % (Auto) [place] % (Auto) Eos % (Auto) Baso % (Auto) Absolute Neuts (auto) Absolute Lymphs (auto) Absolute Monos (auto) Absolute Eos (auto) Absolute Basos (auto) Absolute Nucleated RBC Nucleated RBC % INR (Anticoag Therapy) Sodium Potassium Chloride Carbon Dioxide Anion Gap BUN Creatinine Est GFR ( Amer) Est GFR (Non-Af Amer) BUN/Creatinine Ratio Glucose POC Glucose (mg/dL) 125 H 117 H 143 H Calcium Magnesium 11/18/18 11/18/18 11/18/18 05:28 05:28 05:28 WBC 11.6 H RBC 2.76 L Hgb 9.5 L Hct 28 L MCV 101 H MCH 35 H MCHC 34 RDW 17 H Plt Count 174 MPV 10.2 Neut % (Auto) 70.5 Lymph % (Auto) 15.0 [place] % (Auto) 13.6 Eos % (Auto) 0.3 Baso % (Auto) 0.6 Absolute Neuts (auto) 8.2 H Absolute Lymphs (auto) 1.7 Absolute Monos (auto) 1.6 H Absolute Eos (auto) 0 Absolute Basos (auto) 0.1 Absolute Nucleated RBC 0 Nucleated RBC % 0.4 INR (Anticoag Therapy) 1.00 Sodium 137 Potassium 4.9 Chloride 102 Carbon Dioxide 29 Anion Gap 6 BUN 40 H Creatinine 0.97 H Est GFR ( Amer) 65.7 Est GFR (Non-Af Amer) 54.3 BUN/Creatinine Ratio 41.2 H Glucose 123 H POC Glucose (mg/dL) Calcium 9.4 Magnesium 1.8 L 11/18/18 07:41 WBC RBC Hgb Hct MCV MCH MCHC RDW Plt Count MPV Neut % (Auto) Lymph % (Auto) [place] % (Auto) Eos % (Auto) Baso % (Auto) Absolute Neuts (auto) Absolute Lymphs (auto) Absolute Monos (auto) Absolute Eos (auto) Absolute Basos (auto) Absolute Nucleated RBC Nucleated RBC % INR (Anticoag Therapy) Sodium Potassium Chloride Carbon Dioxide Anion Gap BUN Creatinine Est GFR ( Amer) Est GFR (Non-Af Amer) BUN/Creatinine Ratio Glucose POC Glucose (mg/dL) 134 H Calcium Magnesium Diagnostic Imaging: Echo 09/16/2019: LVEF hyperdynamic with moderate to severe SD CT Head per radiology report no acute intracranial abnormality. EKG Data: 09/17/2019 EKG was reviewed. Afib rate 94 rare PVCs. Telemetry reviewed Afib rates 120-150's Assessment/Plan #1 s/p mechanical fall resulting in right femur fracture. Dr. Huitron following. Patient risk stratified for surgery 09/17/2019. She did strike her head with mechanical fall. CT head was negative for acute process. she denies change in vision, headache, confusion or weakness. #2 h/o Permanent Afib; Chads Vasc 5 historically on coumadin. INR today 1. HR on telemetry is ranging from 110-150's patient is not symptomatic however SBP is 80-90's thus she has been unable to recieve Bblocker therapy. Will order 250mcg IVP Digoxin x1. Continue to monitor on telemetry. Resume coumadin as soon as possible. #3 h/o DHF; NYHA class 3 stage C. Compensated on exam today. Unable to recieve bblocker due to hypotension. monitor fluid status closely latricia operatively. #4 h/o Moderate to severe SD; compensated on exam. No ACEI due to hypotension. #5 Hypomagnesium; mag level today is 1.8 will replace with 2g IV Magnesium x1 #6 Anemia; Hgb today is 9.5 continues to trend down, likely due to above #1 no other source of bleed. She has a h/o peptic ulcer bleed in 2013 however denies hematochezia or melena. Differ to primary team and ortho. #7 Disposition; pending course will follow. Patient is DNR. Attending: Anu Marrero <Anu Marrero - Last Filed: 11/18/18 15:52> Medications Active Medications: Acetaminophen (Tylenol Tab*) 650 mg PO Q6H [facility] Last Admin: 11/18/18 15:14 Dose: Not Given Docusate Sodium (Colace Cap*) 100 mg PO BID [facility] Last Admin: 11/18/18 09:48 Dose: 100 mg Lorazepam (Ativan Inj*) 0.5 mg IV PUSH Q6H PRN PRN Reason: ANXIETY Last Admin: 11/18/18 08:05 Dose: 0.5 mg Melatonin (Melatonin) 3 mg PO BEDTIME PRN PRN Reason: SLEEP Last Admin: 11/17/18 21:00 Dose: 3 mg Metoprolol Tartrate (Lopressor Tab*) 50 mg PO BID [facility] Last Admin: 11/18/18 09:05 Dose: Not Given Metoprolol Tartrate (Lopressor Iv*) 5 mg IV Q6H PRN PRN Reason: HEART RATE/PULSE Morphine Sulfate (Morphine Vial*) 1 mg IV Q4H PRN PRN Reason: SEVERE PAIN Last Admin: 11/17/18 21:01 Dose: 1 mg Oxycodone/Acetaminophen (Percocet 5/325 Tab*) 1 tab PO Q6H PRN PRN Reason: PAIN Objective Vital Signs: Temp Pulse Resp BP Pulse Ox 99.5 F 139 18 119/93 98 11/18/18 14:28 11/18/18 14:28 11/18/18 14:28 11/18/18 14:28 11/18/18 14:28 Laboratory Results: 11/18/18 05:28 11/18/18 05:28 INR (Anticoag Therapy) 1.00 (0.77-1.02) 11/18/18 05:28 APTT 30.1 seconds (26.0-36.3) 11/17/18 05:42 Total Bilirubin 1.30 mg/dL (0.2-1.0) H 11/16/18 19:35 AST 16 U/L (13-39) 11/16/18 19:35 ALT 16 U/L (7-52) 11/16/18 19:35 Alkaline Phosphatase 73 U/L (34-104) 11/16/18 19:35 Total Protein 5.7 g/dL (6.4-8.9) L 11/16/18 19:35 Albumin 3.9 g/dL (3.2-5.2) 11/16/18 19:35 Globulin 1.8 g/dL (2-4) L 11/16/18 19:35 Albumin/Globulin Ratio 2.2 (1-3) 11/16/18 19:35 Assessment/Plan Points of Discussion: The patient was seen by me in OR holding, HR 150's. Mild SOB, mild orthopnea, mildly nervous about upcoming surgery. Denied pain. Mucous membranes a bit dry, rare basilar crackles, Irregulular fast rate, no edema and appears comfortable lying in bed at 30 degrees. BP 133/80 5 mg IV lopressor given with HR decreasing to 95-100 bpm. A/p As above, chronic afib, CM, mechanical fall and fracture Beta darrell (and ACEI) held due to low BP. Now the patient's BP recovered, ventricular rate is up, likely due to rebound from metoprolol being held. I recommend proceeding to surgery, IV metoprolol has improved rate, could be given intra op PRN. Post op I recommend resuming oral BB, short acting OK so it can be held PRN. Cardiology will follow periop.
[2018-11-18] MEDS ORDERED: Magnesium Sulfate 2 GM IV* 2 GM/50 ML BAG IVPB ONE (08:50)
[2018-11-18] MEDS: Metoprolol Tartrate TAB* 50 mg PO SCH ×2 (09:05→21:25)
[2018-11-18] MEDS: Docusate CAP* 100 MG PO SCH ×2 (09:48→21:25)
[2018-11-18] MEDS ORDERED: Metoprolol Tartrate IV* 1 MG/ML 5 ML VIAL ONE ×2 (15:50→20:20)
--- NOTE | 2018-11-18 15:51 | PN ---
Progress Note - Progress Note Date of Service: 11/18/18 Note: Pt seen and examined. R hip subtroch fracture NPO for surgery today. Currently resting comfortably. Denies SOB, CP. In afib. Temp Pulse Resp BP Pulse Ox 99.5 F 139 18 119/93 98 11/18/18 14:28 11/18/18 14:28 11/18/18 14:28 11/18/18 14:28 11/18/18 14:28 NAD. AAOx3. pleasant mood, normal affect. RLE: externally rotated. Skin abrasion to ramos. calf soft, nontender. brisk cap refill. able to flex/ext digits. A/P R hip subtroch fracture plan for IMN of right hip currently in AFIB. discussing with cards and anesthesia as to plan for surgery. if optimized will plan for surgery today.
[2018-11-18] MEDS ORDERED: Digoxin IV* 0.5 MG/2 ML AMP (0.25 MG/ML) ONE (16:20)
[2018-11-18] MEDS ORDERED: Midazolam* 1 MG/ML 5 ML VIAL (5 MG) ONE (16:23)
[2018-11-18] MEDS ORDERED: fentaNYL* 50 MCG/ML 2 ML VIAL (100 MCG VIAL) ONE ×2 (16:23→17:43)
[2018-11-18] MEDS ORDERED: KETAMINE HCL* 50 MG/ML 10 ML VIAL ONE (16:23)
[2018-11-18] MEDS ORDERED: Dexamethasone IV* 4 MG/ML 1 ML (4 MG) ONE (16:23)
[2018-11-18] MEDS ORDERED: Lidocaine 2% PF * 5 ML VIAL ONE (16:23)
[2018-11-18] MEDS ORDERED: Phenylephrine INJ* 10 MG/ML 1 ML VIAL (10 MG) ONE (16:23)
[2018-11-18] MEDS ORDERED: Propofol* 10 MG/ML 20 ML BTL ONE (16:23)
[2018-11-18] MEDS ORDERED: Ondansetron INJ* 2 MG/ML VIAL ONE (16:23)
[2018-11-18] MEDS ORDERED: ceFAZolin 2 GM PREMIX in ORs 2 GM/50 ML BAG IVPB ONE (16:39)
[2018-11-18] MEDS ORDERED: VASOPRESSIN 20 UNITS/ML 1 ML VIAL ONE (17:19)
[2018-11-18] MEDS ORDERED: Bupivacaine 0.5%* 50 ML VIAL ONE (17:36)
[2018-11-18] MEDS ORDERED: ROPIVACAINE 5 MG/ML 30 ML BTL (0.5%) ONE (18:11)
[2018-11-18] MEDS ORDERED: Ropivacaine* 2 MG/ML 20 ML VIAL (0.2%) ONE (18:13)
[2018-11-18] MEDS ORDERED: fentaNYL* 50 MCG/ML 2 ML VIAL (100 MCG VIAL) IV PRN (19:09)
[2018-11-18] MEDS ORDERED: Ondansetron INJ* 2 MG/ML VIAL IV PRN ×2 (19:09→21:46)
[2018-11-18] MEDS ORDERED: Naloxone* 0.4 MG/ML 1 ML VIAL IV PRN (19:09)
[2018-11-18 19:44] LABS: Hematocrit 25 % (35-47); Hemoglobin 8.2 g/dl (12.0-16.0)
[2018-11-18] MEDS ORDERED: oxyCODONE TAB* 5 MG TAB PO PRN (21:43)
[2018-11-18] MEDS ORDERED: Magnesium Hydroxide LIQ* 30 ML UDC PO PRN (21:47)
[2018-11-18] MEDS ORDERED: Warfarin TAB(*) 2.5 MG PO ONE (22:00)
[2018-11-18] MEDS ORDERED: Digoxin IV* 0.5 MG/2 ML AMP (0.25 MG/ML) IV ONE (22:30)
[2018-11-18] MEDS: Lactated Ringers 1000 ML Bag* 1,000 ML IV SCH (23:14)
--- NOTE | 2018-11-19 01:47 | OP ---
DATE OF OPERATION: 11/18/18 - ROOM #ICU-02 DATE OF : 32 ATTENDING PHYSICIAN: Tika Newman MD SURFACE GRINDER TENDER: UNRULY Cao. An printing assistant was needed for the entirety of the case to help with positioning, retraction and utilized throughout all portions of case. ANESTHESIOLOGIST: Dr. Lozano. ANESTHESIA: General. PRE-OP DIAGNOSIS: Intertrochanteric hip fracture with subtrochanteric extension. POST-OP DIAGNOSIS: Intertrochanteric hip fracture with subtrochanteric extension. OPERATIVE PROCEDURE: Right hip intramedullary nail. IMPLANTS USED: Synthes TFN 11 x 380 mm with a size 95 helical blade and the appropriate-length distal screw. ESTIMATED BLOOD LOSS: 100 cc. INDICATIONS: Charity Roach is an 88-year-old female who ambulates with a walker who presented with a right hip fracture that occurred on 11/16/18. She has an extensive cardiac and medical history and she was seen by my partner, Dr. Huitron and evaluated. She diagnosed her with an intertrochanteric hip fracture with subtrochanteric extension. After extensive discussion of risks and benefits of surgery, she has elected to proceed with surgical treatment. She underwent Cardiac and Medicine Team risk management optimization, and she is as optimized that she can be for surgical treatment. Risks include but are not limited to bleeding, infection, damage to nerves, vessels, surrounding structures, wound nonhealing, persistent pain, need for surgery, scarring, stiffness, incomplete relief of symptoms, and risk of anesthesia. DESCRIPTION OF PROCEDURE: The patient was greeted in the preoperative area by the attending surgeon. The correct extremity was marked and consent was confirmed. The patient was brought back to the operating suite where she was placed in the supine position on the operating table. She underwent general anesthesia and endotracheal intubation, after which she was properly positioned on the fracture table. The nonoperative leg was placed in a well- leg lin. There was a well- padded perineal post with countertraction. The right arm was draped over her body. All bony prominences were padded, after which the patient underwent a gentle reduction. This was confirmed on the C-arm , the AP and lateral views. After this, the right leg was then prepped and draped in the usual sterile fashion, beginning with chlorhexidine soap, scrub, and alcohol wipe and a final prep with ChloraPrep. After appropriate surgical pause indicating site, side, procedure, and administration of antibiotics, an incision was made laterally proximal to the greater trochanter. The soft tissue was carefully dissected to expose the fascia, which was sharply incised with a deep #10 blade, after which a 2.3 mm guidewire was then appropriately positioned. This was confirmed on the AP and lateral views. Once this was confirmed, a size 16 mm open reamer was then used to access to canal. Care was taken to maintain reduction at all times, after which the ball-tip guidewire was placed down the center of the femoral canal. Once the appropriate length was identified, reaming began beginning with a 9 mm reamer. This was going to be a long nail all the way up to about 13 mm of reaming. Size 11 x 380 mm long nail was then chosen, brought to the field and then impacted under fluoroscopic visualization until it was appropriate size, after which the proximal guide jig was then assembled and the guidewire for the helical blade was then placed. Once it was confirmed on the AP and lateral views to be center of the head and low, a second 2.3 guidewire was placed to prevent derotation of pin. The lateral cortex was drilled and the appropriate length was identified and the blade was then opened and gently impacted into position. This had excellent purchase. Once it was fully placed and impacted into position, it was secured proximally and the nail was locked. The jig was removed and reduction was visualized and found to be in good position. At this point, the attention was taken distally to do perfect circles laterally about the distal aspect of the nail. Once this was done, the distal static hole was then chosen to lock the nail. Then, a #10 blade was used to make a separate incision. IT band was exposed and incised. The drill bit was then placed in the center based on appropriate circles and drilled through bicortically. The appropriate-length screw was then placed and this locked the nail distally. Final images were obtained and the wounds were copiously irrigated with sterile saline. The incisions were closed in layers with 0 Vicryl for the deep fascia, then 2-0 Vicryl for the skin and tio. The wounds were injected with 0.2% ropivacaine. Sterile dressing was applied. She was awoken from anesthesia and transferred to PACU in stable condition. POSTOPERATIVE PLAN: She will be tested on weightbearing. She will undergo 24 hours postoperative antibiotics and she will restart her Coumadin with the Lovenox bridge. I will continue to follow the patient while she is inhouse. We will continue to follow the patient until she is discharged and then we will see the patient in followup. [id number]/CPS #: [id number] MTDD
[2018-11-19 03:06] LABS: Hematocrit 29 % (35-47); Hemoglobin 9.8 g/dl (12.0-16.0)
[2018-11-19] MEDS: Acetaminophen TAB* 325 MG PO SCH ×4 (03:57→21:10)
[2018-11-19 04:41] LABS: Hematocrit 30 % (35-47); Hemoglobin 9.9 g/dl (12.0-16.0)
[2018-11-19 05:00] LABS: BUN/Creatinine Ratio 34.7 (8-20); Blood Urea Nitrogen 42 mg/dL (6-24); CO2 Carbon Dioxide 28 mmol/L (22-32); Calcium 8.6 mg/dL (8.6-10.3); Chloride 104 mmol/L (101-111); EGFR African American 50.9 (>60); EGFR Non-African American 42.1 (>60); Glucose 132 mg/dL (70-100); Sodium 137 mmol/L (135-145)
[2018-11-19 05:01] LABS: Anion Gap 5 mmol/L (2-11)
[2018-11-19] MEDS: Lactated Ringers 1000 ML Bag* 1,000 ML IV SCH (06:30)
[2018-11-19 06:45] LABS: INR 0.94 (0.77-1.02)
--- NOTE | 2018-11-19 07:43 | PN ---
Subjective - Subjective Reason for Note: Progress Note History: She is 1 day post repair of a right hip fracture with the open placement of an intramedullary nail. She had rapid atrial fibrillation before and after the procedure. Her BP also was low. We treated this post-operatively with 1 unit PRBCs that was effective in restoring her Hgb/HCT and digoxin which bought down her heart rate. Overnight, she has been hypotensive. However, she has remained warm and with normal mental state. She has not been distressed. We tried a fluid bolus that worked temporarily. However, we were concerned with volume overload. Given that she was producing 25 - 30 mls per hour of urine, I have not given pressors, nor further volume expanders. This morning she is comfortable. She has no pain from the operative site. She does not feel faint or distressed. She has no chest pain/pressure or dyspnea lying flat in bed. She denies chills or rigors. She has a productive cough. Active Problems: Active Problems Atrial fibrillation (Acute) I48.91 - Admitted to tele - Holding Coumadin Fall from slipping on ice (Acute) W00.9XXA Hip fracture requiring operative repair (Acute) S72.009A Hypotension (Acute) Leukocytosis (Acute) D72.829 - WBC is 17.1 - I suspected this is 2/2 to fall - CBC to be rechecked tomorrow Tachycardia (Acute) R00.0 Anticoagulant therapy (Chronic) Z79.01 - INR 1.52 - Hold Warfarin - 2.5 mg Vitamin K ordered. 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 - Reassess as soon as possible. - SCDs ordered Diastolic CHF (Chronic) I50.30 - Last Echo in 2017, therefore, repeat echo for the morning. - Patient is established with [facility]. Dr Carmona called made aware of patient. 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 Essential hypertension (Chronic) I10 - Cont metoprolol - Hold Lasix and Spironolactone Hypercholesterolemia (Chronic) E78.0 - Defer to primary care Impaired fasting glycaemia (Chronic) R73.01 - Finger sticks ordered, but no coverage Osteoporosis (Chronic) M81.0 Pulmonary hypertension (Chronic) I27.2 Current Medications: Current Medications Acetaminophen (Tylenol Tab*) 650 mg PO Q6H [facility] Last Admin: 11/19/18 03:57 Dose: 650 mg Docusate Sodium (Colace Cap*) 100 mg PO BID [facility] Last Admin: 11/18/18 21:25 Dose: 100 mg Enoxaparin Sodium (Lovenox(*)) 40 mg SUBCUT Q24H [facility] Lactated Ringer's (Lactated Ringers 1000 Ml Bag*) 1,000 mls @ 75 mls/hr IV PER RATE [facility] Last Admin: 11/19/18 06:30 Dose: 75 mls/hr Lorazepam (Ativan Inj*) 0.5 mg IV PUSH Q6H PRN PRN Reason: ANXIETY Last Admin: 11/18/18 08:05 Dose: 0.5 mg Magnesium Hydroxide (Milk Of Magnsasha Liq*) 30 ml PO Q6H PRN PRN Reason: CONSTIPATION Melatonin (Melatonin) 3 mg PO BEDTIME PRN PRN Reason: SLEEP Last Admin: 11/17/18 21:00 Dose: 3 mg Metoprolol Tartrate (Lopressor Tab*) 50 mg PO BID [facility] Last Admin: 11/18/18 21:25 Dose: 50 mg Metoprolol Tartrate (Lopressor Iv*) 5 mg IV Q6H PRN PRN Reason: HEART RATE/PULSE Morphine Sulfate (Morphine Vial*) 1 mg IV Q4H PRN PRN Reason: SEVERE PAIN Last Admin: 11/17/18 21:01 Dose: 1 mg Ondansetron HCl (Zofran Inj*) 4 mg IV Q6H PRN PRN Reason: NAUSEA Oxycodone HCl (Roxycodone Tab*) 10 mg PO Q4H PRN PRN Reason: PAIN - SEVERE Oxycodone/Acetaminophen (Percocet 5/325 Tab*) 1 tab PO Q6H PRN PRN Reason: PAIN Home Medications: Home Medications Medication Instructions Recorded Confirmed Type Furosemide TAB* [Lasix TAB*] 40 mg PO DAILY 90 Days tab 02/25/17 11/16/18 Rx Metoprolol Tartrate TAB* 50 mg PO BID #180 tab 02/25/17 11/16/18 Rx [Lopressor TAB*] Spironolactone TAB* [Aldactone TAB 25 mg PO DAILY #90 tab 02/25/17 11/16/18 Rx 25 MG*] Cholecalciferol TAB* [Vitamin D 400 unit PO DAILY 11/16/18 11/16/18 History TAB*] Glucosa Bardales 2Kcl/Chondroitin Bardales 1 cap PO BID 11/16/18 11/16/18 History [Glucosamine & Chondroitin Cap] Warfarin TAB(*) [Coumadin TAB(*)] 2.5 mg PO DAILY 11/16/18 11/16/18 History Allergies: Allergies Allergy/AdvReac Type Severity Reaction Status Date / Time No Known Allergies Allergy Verified 11/16/18 14:32 Objective - Vital Signs Vital Signs: Vital Signs 11/18/18 11/18/18 11/18/18 08:05 08:19 09:05 Temperature 96.6 F Pulse Rate 99 Respiratory 18 16 18 Rate Blood Pressure 93/73 83/62 (mmHg) O2 Sat by Pulse 98 Oximetry 11/18/18 11/18/18 11/18/18 10:57 11:28 11:56 Temperature 97.9 F Pulse Rate 86 130 Respiratory 18 Rate Blood Pressure 85/60 86/59 (mmHg) O2 Sat by Pulse 100 Oximetry 11/18/18 11/18/18 11/18/18 14:18 14:28 15:27 Temperature 99.5 F Pulse Rate 125 139 165 Respiratory 32 18 31 Rate Blood Pressure 119/83 119/93 139/90 (mmHg) O2 Sat by Pulse 100 98 98 Oximetry 11/18/18 11/18/18 11/18/18 15:31 15:44 15:46 Temperature Pulse Rate 155 98 100 Respiratory 31 32 32 Rate Blood Pressure 133/96 136/91 130/87 (mmHg) O2 Sat by Pulse 98 99 99 Oximetry 11/18/18 11/18/18 11/18/18 16:01 16:05 16:16 Temperature Pulse Rate 96 101 Respiratory 23 25 Rate Blood Pressure 116/81 133/84 (mmHg) O2 Sat by Pulse 99 99 Oximetry 11/18/18 11/18/18 11/18/18 16:30 18:40 18:46 Temperature 98.4 F Pulse Rate 99 86 Respiratory 28 24 Rate Blood Pressure 116/90 96/73 110/81 (mmHg) O2 Sat by Pulse 100 94 Oximetry 11/18/18 11/18/18 11/18/18 18:51 18:55 19:01 Temperature Pulse Rate 95 99 105 Respiratory 21 21 20 Rate Blood Pressure 85/64 96/69 92/62 (mmHg) O2 Sat by Pulse 92 97 95 Oximetry 11/18/18 11/18/18 11/18/18 19:17 19:18 19:30 Temperature Pulse Rate 166 137 141 Respiratory 20 23 31 Rate Blood Pressure 75/52 84/55 75/59 (mmHg) O2 Sat by Pulse 91 92 89 Oximetry 11/18/18 11/18/18 11/18/18 19:32 19:45 20:07 Temperature Pulse Rate 117 113 129 Respiratory 24 24 31 Rate Blood Pressure 92/61 95/65 167/73 (mmHg) O2 Sat by Pulse 94 93 84 Oximetry 11/18/18 11/18/18 11/18/18 20:09 20:15 20:29 Temperature Pulse Rate 127 144 130 Respiratory 37 31 30 Rate Blood Pressure 117/52 114/96 90/49 (mmHg) O2 Sat by Pulse 88 88 91 Oximetry 11/18/18 11/18/18 11/18/18 20:30 20:46 20:59 Temperature Pulse Rate 133 152 Respiratory 34 30 31 Rate Blood Pressure 91/75 94/55 108/85 (mmHg) O2 Sat by Pulse 91 90 Oximetry 11/18/18 11/18/18 11/18/18 21:01 21:02 21:04 Temperature 97.6 F Pulse Rate 139 123 Respiratory 31 30 30 Rate Blood Pressure 134/117 98/63 82/62 (mmHg) O2 Sat by Pulse 100 90 Oximetry 11/18/18 11/18/18 11/18/18 21:05 21:16 21:30 Temperature Pulse Rate 145 93 170 Respiratory 33 27 23 Rate Blood Pressure 98/63 94/54 91/80 (mmHg) O2 Sat by Pulse 99 100 96 Oximetry 11/18/18 11/18/18 11/18/18 21:46 22:01 22:17 Temperature Pulse Rate 150 143 167 Respiratory 32 27 23 Rate Blood Pressure 83/70 85/61 60/46 (mmHg) O2 Sat by Pulse 100 98 92 Oximetry 11/18/18 11/18/18 11/18/18 22:47 23:01 23:09 Temperature Pulse Rate 84 78 88 Respiratory 27 31 27 Rate Blood Pressure 70/55 71/36 73/47 (mmHg) O2 Sat by Pulse 100 78 100 Oximetry 11/18/18 11/18/18 11/18/18 23:13 23:16 23:31 Temperature Pulse Rate 88 98 93 Respiratory 30 31 Rate Blood Pressure 74/33 93/71 (mmHg) O2 Sat by Pulse 97 94 Oximetry 11/18/18 11/18/18 11/19/18 23:35 23:46 00:00 Temperature 98.1 F Pulse Rate 82 78 Respiratory 25 28 Rate Blood Pressure 76/60 78/53 (mmHg) O2 Sat by Pulse 95 100 Oximetry 11/19/18 11/19/18 11/19/18 00:02 00:15 00:26 Temperature Pulse Rate 76 79 74 Respiratory 29 24 35 Rate Blood Pressure 85/57 77/57 (mmHg) O2 Sat by Pulse 100 100 98 Oximetry 11/19/18 11/19/18 11/19/18 00:30 00:45 01:00 Temperature Pulse Rate 73 80 71 Respiratory 31 29 26 Rate Blood Pressure 92/64 86/61 82/62 (mmHg) O2 Sat by Pulse 100 100 98 Oximetry 11/19/18 11/19/18 11/19/18 01:15 01:30 01:45 Temperature Pulse Rate 73 78 80 Respiratory 29 27 26 Rate Blood Pressure 84/64 75/56 75/56 (mmHg) O2 Sat by Pulse 100 100 95 Oximetry 11/19/18 11/19/18 11/19/18 02:00 02:15 02:30 Temperature Pulse Rate 83 74 79 Respiratory 33 25 28 Rate Blood Pressure 82/56 84/57 77/58 (mmHg) O2 Sat by Pulse 92 99 98 Oximetry 11/19/18 11/19/18 11/19/18 02:45 02:46 02:54 Temperature Pulse Rate 78 73 Respiratory 29 34 30 Rate Blood Pressure 78/57 77/57 (mmHg) O2 Sat by Pulse 100 100 Oximetry 11/19/18 11/19/18 11/19/18 03:00 03:15 03:32 Temperature Pulse Rate 80 82 83 Respiratory 28 29 29 Rate Blood Pressure 85/58 90/60 93/59 (mmHg) O2 Sat by Pulse 100 100 100 Oximetry 11/19/18 11/19/18 11/19/18 03:45 04:00 04:01 Temperature 98.0 F Pulse Rate 76 78 Respiratory 26 28 25 Rate Blood Pressure 81/59 87/51 (mmHg) O2 Sat by Pulse 96 99 Oximetry 11/19/18 11/19/18 11/19/18 04:15 04:27 04:30 Temperature Pulse Rate 76 78 Respiratory 32 28 Rate Blood Pressure 79/58 73/50 (mmHg) O2 Sat by Pulse 99 100 Oximetry 11/19/18 11/19/18 11/19/18 04:45 04:47 05:00 Temperature Pulse Rate 86 88 82 Respiratory 22 22 27 Rate Blood Pressure 65/50 81/47 70/47 (mmHg) O2 Sat by Pulse 92 89 100 Oximetry 11/19/18 11/19/18 11/19/18 05:15 05:30 05:31 Temperature Pulse Rate 85 85 80 Respiratory 32 26 26 Rate Blood Pressure 83/60 73/51 75/43 (mmHg) O2 Sat by Pulse 97 98 95 Oximetry 11/19/18 11/19/18 05:45 06:00 Temperature Pulse Rate 85 80 Respiratory 22 27 Rate Blood Pressure 82/53 72/48 (mmHg) O2 Sat by Pulse 92 92 Oximetry - Intake and Output Intake and Output: Intake & Output 11/16/18 11/17/18 11/18/18 11/19/18 11:59 11:59 11:59 11:59 Intake Total 0 360 3432 Output Total 325 480 760 Balance -325 -120 2672 Weight 122 lb Intake: IV Fluids 2166 LR 2166 Oral 0 360 980 Packed Cells 286 Output: Urine 0 Stubbs 325 480 760 Other: # Bowel Movements 0 ADLs: Meal Record Start: 11/16/18 22: 22 Freq: DAILY@0900,1400,1800 Status: Complete Protocol: Created 11/16/18 22:22 System (Rec: 11/16/18 22:22 System TELE-C15) Document 11/17/18 13:59 [id number] (Rec: 11/17/18 14:00 [id number] TELE-C11) Document 11/17/18 17:22 [id number] (Rec: 11/17/18 17:22 [id number] TELE-M06) Document 11/18/18 09:00 [id number] (Rec: 11/18/18 12:47 [id number] TELE-C10) Document 11/18/18 14:00 [id number] (Rec: 11/18/18 15:20 [id number] TELE-C08) Document 11/18/18 18:00 [id number] (Rec: 11/18/18 18:53 [id number] TELE-C01) ADLs: Meal Record Start: 11/18/18 21: 12 Freq: 09,13,18 Status: Active Protocol: Created 11/18/18 21:12 [id number] (Rec: 11/18/18 21:12 [id number] ICU-C12) Intake and Output Start: 11/16/18 14: 32 Freq: Status: Complete Protocol: Created 11/16/18 14:32 System (Rec: 11/16/18 14:32 System [id number]) Intake and Output Start: 11/16/18 22: 22 Freq: DAILY@0600,1400,2200 Status: Complete Protocol: Created 11/16/18 22:22 System (Rec: 11/16/18 22:22 System TELE-C15) Document 11/17/18 06:00 [id number] (Rec: 11/17/18 06:01 [id number] TELE-C11) Document 11/17/18 14:00 [id number] (Rec: 11/17/18 15:34 [id number] TELE-C10) Document 11/17/18 22:00 [id number] (Rec: 11/17/18 22:22 [id number] TELE-C01) Document 11/18/18 06:00 [id number] (Rec: 11/18/18 07:36 [id number] TELE-C09) Document 11/18/18 14:00 [id number] (Rec: 11/18/18 15:20 [id number] TELE-C08) Intake and Output Start: 11/18/18 21: 12 Freq: Q1HR Status: Active Protocol: Created 11/18/18 21:12 [id number] (Rec: 11/18/18 21:12 [id number] ICU-C12) Document 11/18/18 23:56 [id number] (Rec: 11/18/18 23:56 [id number] ICU-C10) Document 11/19/18 00:00 [id number] (Rec: 11/19/18 00:28 [id number] ICU-C16) Document 11/19/18 01:00 [id number] (Rec: 11/19/18 01:59 [id number] ICU-C16) Document 11/19/18 02:00 [id number] (Rec: 11/19/18 02:09 [id number] ICU-C16) Document 11/19/18 03:00 [id number] (Rec: 11/19/18 04:05 [id number] ICU-C16) Document 11/19/18 04:00 [id number] (Rec: 11/19/18 04:05 [id number] ICU-C16) Document 11/19/18 06:00 [id number] (Rec: 11/19/18 06:14 [id number] ICU-C10) Document 11/19/18 06:00 [id number] (Rec: 11/19/18 06:16 [id number] ICU-C16) - Physical Exam General Physical Exam Comment: warm and well perfused. I measured her BP as 92/ 60 in her left arm. She is in no distress. General: No Cyanosis, Yes Anemia - pale, No Jaundice, No Clubbing Lungs and Chest: Yes: Chest Expansion Full, Chest Expansion Symetrica, Percussion Note Resonant, Vessicular Breath Sounds, Crackles - scattered basal crackles. No: Wheezes, Respiratory Distress, Use of Accessory Muscles Heart Rate and Rhythm: Irregular Additional Cardiovascular: Yes: Normal Heart Sounds, Heart Murmur. No: Pedal Edema Abdominal Exam: Yes: Soft. No: Distention, Hepatomegaly, Abdominal Tenderness, Bowel Sounds Present - Extremities Cranial Nerves II-XII Intact: Yes Limbs: Abnormal Power - generally weak, but moving all limbs - Neuro Orientation: A/O x3 Psychiatric: Normal Speech: Normal Results - Results Lab Results: Laboratory Results - last 24 hr 11/16/18 11/18/18 11/18/18 19:35 07:41 11:24 Hgb Hct INR (Anticoag Therapy) Sodium Potassium Chloride Carbon Dioxide Anion Gap BUN Creatinine Est GFR ( Amer) Est GFR (Non-Af Amer) BUN/Creatinine Ratio Glucose POC Glucose (mg/dL) 134 H 132 H Calcium Blood Type A Positive Antibody Screen Negative Crossmatch See Detail 11/18/18 11/18/18 11/19/18 19:35 23:11 02:49 Hgb 8.2 L 9.8 L Hct 25 L 29 L INR (Anticoag Therapy) Sodium Potassium Chloride Carbon Dioxide Anion Gap BUN Creatinine Est GFR ( Amer) Est GFR (Non-Af Amer) BUN/Creatinine Ratio Glucose POC Glucose (mg/dL) 194 H Calcium Blood Type Antibody Screen Crossmatch 11/19/18 11/19/18 11/19/18 04:30 04:30 06:32 Hgb 9.9 L Hct 30 L INR (Anticoag Therapy) Sodium 137 Potassium TNP 4.9 Chloride 104 Carbon Dioxide 28 Anion Gap 5 BUN 42 H Creatinine 1.21 H Est GFR ( Amer) 50.9 Est GFR (Non-Af Amer) 42.1 BUN/Creatinine Ratio 34.7 H Glucose 132 H POC Glucose (mg/dL) Calcium 8.6 Blood Type Antibody Screen Crossmatch 11/19/18 06:32 Hgb Hct INR (Anticoag Therapy) 0.94 Sodium Potassium Chloride Carbon Dioxide Anion Gap BUN Creatinine Est GFR ( Amer) Est GFR (Non-Af Amer) BUN/Creatinine Ratio Glucose POC Glucose (mg/dL) Calcium Blood Type Antibody Screen Crossmatch Assessment - Problem List Assessment: Patient Problems Atrial fibrillation (Acute) Fall from slipping on ice (Acute) Hip fracture requiring operative repair (Acute) Hypotension (Acute) Leukocytosis (Acute) Tachycardia (Acute) Anticoagulant therapy (Chronic) Collapse of thoracic vertebra due to osteoporosis (Chronic) Creatinine elevation (Chronic) DNR (do not resuscitate) (Chronic) DVT prophylaxis (Chronic) Diastolic CHF (Chronic) Diastolic dysfunction (Chronic) Diverticular disease of colon (Chronic) Essential hypertension (Chronic) Hypercholesterolemia (Chronic) Impaired fasting glycaemia (Chronic) Osteoporosis (Chronic) Pulmonary hypertension (Chronic) Plan: Atrial fibrillation (Acute)Hypotension (Acute) Tachycardia (Acute) Her BP recovered when I entered the room. She doesn't look clinically hypovolemic. I will maintain digoxin. If she sustains her BP after being more awake and is able to sit in a chair without adverse event, I will transfer her later to a surgical bed. I will check a CXR to ensure we have not given her too much volume and caused pulmonary edema Fall from slipping on ice (Acute)Hip fracture requiring operative repair (Acute ) She is going to require rehabilitation - I strongly suggest PMRU Leukocytosis (Acute) Resolved Anticoagulant therapy (Chronic) She was given lovenox last night, I will resume warfarin Creatinine elevation (Chronic) This is higher this morning - this is likely due to her surgery - her BUN is not especially changed Secondary diagnoses: Collapse of thoracic vertebra due to osteoporosis (Chronic) DNR (do not resuscitate) (Chronic) DVT prophylaxis (Chronic) Diastolic CHF (Chronic) Diastolic dysfunction (Chronic) Diverticular disease of colon (Chronic) Essential hypertension (Chronic) Hypercholesterolemia (Chronic) Impaired fasting glycaemia (Chronic) Osteoporosis (Chronic) Pulmonary hypertension (Chronic) I discussed the above with the patient and she agrees with the plan.
--- NOTE | 2018-11-19 08:59 | PN ---
Subjective Date of Service: 11/19/18 - Perm AF, DHF, MR Interval History: No events last night. Patient lying in bed awake upon entering room. She underwent right hip intramedullary nail 11/18/2018. Intraoperatively required 5mg IV Lopressor. She was given IV fluids. She denies increased SOB however is requiring increased O2 requirements she adds at home she typically uses 2 L, currently she is on 4. She denies chest pain, palpitations, sensation of heart racing, dizziness, confusion, headache or vision change. She is inquiring about a lost watch that was taken off of her. In addition she asked if anesthesia could cause her to become confused. Upon further inquiry she states after surgery she was very disoriented. The patient's nurse came into the room and was not aware of a watch being taken off of patient. The patient then stated it was taken off of her prior to surgery 2 days ago? She seems disoriented surrounding timing of surgery. She was able to appropriately state the year, current president and who lost to the president in prior race. no focal neuro deficits on exam. Medications Active Medications: Acetaminophen (Tylenol Tab*) 650 mg PO Q6H [facility] Last Admin: 11/19/18 03:57 Dose: 650 mg Digoxin (Lanoxin Tab*) 0.125 mg PO 1700 [facility] Docusate Sodium (Colace Cap*) 100 mg PO BID [facility] Last Admin: 11/18/18 21:25 Dose: 100 mg Enoxaparin Sodium (Lovenox(*)) 40 mg SUBCUT Q24H [facility] Melatonin (Melatonin) 3 mg PO BEDTIME PRN PRN Reason: SLEEP Last Admin: 11/17/18 21:00 Dose: 3 mg Metoprolol Tartrate (Lopressor Iv*) 5 mg IV Q6H PRN PRN Reason: HEART RATE/PULSE Metoprolol Tartrate (Lopressor Tab*) 50 mg PO BID [facility] Morphine Sulfate (Morphine Vial*) 1 mg IV Q4H PRN PRN Reason: SEVERE PAIN Last Admin: 11/17/18 21:01 Dose: 1 mg Ondansetron HCl (Zofran Inj*) 4 mg IV Q6H PRN PRN Reason: NAUSEA Oxycodone HCl (Roxycodone Tab*) 10 mg PO Q4H PRN PRN Reason: PAIN - SEVERE Oxycodone/Acetaminophen (Percocet 5/325 Tab*) 1 tab PO Q6H PRN PRN Reason: PAIN Pharmacy Profile Note (Coumadin Per Pharmacy*) 0 note FOLLOW UP .PER PHARMACY PROTOC LIA; Protocol Warfarin Sodium (Coumadin Tab(*)) 5 mg PO ONCE ONE Stop: 11/19/18 17:01 Objective Vital Signs: Temp Pulse Resp BP Pulse Ox 98.0 F 83 26 90/57 99 11/19/18 04:00 11/19/18 07:46 11/19/18 07:46 11/19/18 07:46 11/19/18 07:46 Oxygen Devices in Use Now: Nasal Cannula Appearance: Well nourished, NAD A+O x3 Ears/Nose/Mouth/Throat: NL Teeth, Lips, Gums, Clear Oropharnyx, Mucous Membranes Moist Neck: NL Appearance and Movements; NL JVP, Trachea Midline, No Thyroid Enlargement, Masses Respiratory: Symmetrical Chest Expansion and Respiratory Effort, - - slight inspiratory crackles noted in left base otherwise clear. Cardiovascular: No Edema, - - normal S1, S2 irregular rate and rhythm. no gallop or rub. + mitral murmur Abdominal: NL Sounds; No Tenderness; No Distention, No Hepatosplenomegaly Skin: - - right pretibial surface has + wound dressing in place., bruising noted on posterior aspect of head. Neurological: Alert and Oriented x 3, - - right lower extremity is externally rotated. distal pulses not palpable, per RN + dorsalis pedis pulse with doppler. cool to touch Lines/Tubes/Other Access: Clean, Dry and Intact Stubbs, Clean, Dry and Intact Peripheral IV Laboratory Results: 11/19/18 04:30 11/19/18 06:32 INR (Anticoag Therapy) 0.94 (0.77-1.02) 11/19/18 06:32 APTT 30.1 seconds (26.0-36.3) 11/17/18 05:42 Total Bilirubin 1.30 mg/dL (0.2-1.0) H 11/16/18 19:35 AST 16 U/L (13-39) 11/16/18 19:35 ALT 16 U/L (7-52) 11/16/18 19:35 Alkaline Phosphatase 73 U/L (34-104) 11/16/18 19:35 Total Protein 5.7 g/dL (6.4-8.9) L 11/16/18 19:35 Albumin 3.9 g/dL (3.2-5.2) 11/16/18 19:35 Globulin 1.8 g/dL (2-4) L 11/16/18 19:35 Albumin/Globulin Ratio 2.2 (1-3) 11/16/18 19:35 Laboratory Results - last 24 hr 11/16/18 11/18/18 11/18/18 19:35 11:24 19:35 Hgb 8.2 L Hct 25 L INR (Anticoag Therapy) Sodium Potassium Chloride Carbon Dioxide Anion Gap BUN Creatinine Est GFR ( Amer) Est GFR (Non-Af Amer) BUN/Creatinine Ratio Glucose POC Glucose (mg/dL) 132 H Calcium Blood Type A Positive Antibody Screen Negative Crossmatch See Detail 11/18/18 11/19/18 11/19/18 23:11 02:49 04:30 Hgb 9.8 L Hct 29 L INR (Anticoag Therapy) Sodium 137 Potassium TNP Chloride 104 Carbon Dioxide 28 Anion Gap 5 BUN 42 H Creatinine 1.21 H Est GFR ( Amer) 50.9 Est GFR (Non-Af Amer) 42.1 BUN/Creatinine Ratio 34.7 H Glucose 132 H POC Glucose (mg/dL) 194 H Calcium 8.6 Blood Type Antibody Screen Crossmatch 11/19/18 11/19/18 11/19/18 04:30 06:32 06:32 Hgb 9.9 L Hct 30 L INR (Anticoag Therapy) 0.94 Sodium Potassium 4.9 Chloride Carbon Dioxide Anion Gap BUN Creatinine Est GFR ( Amer) Est GFR (Non-Af Amer) BUN/Creatinine Ratio Glucose POC Glucose (mg/dL) Calcium Blood Type Antibody Screen Crossmatch 11/19/18 08:06 Hgb Hct INR (Anticoag Therapy) Sodium Potassium Chloride Carbon Dioxide Anion Gap BUN Creatinine Est GFR ( Amer) Est GFR (Non-Af Amer) BUN/Creatinine Ratio Glucose POC Glucose (mg/dL) 179 H Calcium Blood Type Antibody Screen Crossmatch Diagnostic Imaging: Echo 09/16/2019: LVEF hyperdynamic with moderate to severe SD CT Head per radiology report no acute intracranial abnormality. EKG Data: 09/17/2019 EKG was reviewed. Afib rate 94 rare PVCs. Telemetry reviewed Afib rates 70-80's Assessment/Plan #1 s/p mechanical fall resulting in right hip subtroch fracture s/p nail to right hip. Patient doing well except slight confusion. She did strike her head with mechanical fall. CT head was negative for acute process at time of presentation. she denies change in vision, headache, confusion or weakness. there are no focal neuro deficits. Will notify Dr. Knapp. #2 h/o Permanent Afib; Chads Vasc 5 historically on coumadin. INR today .94, coumadin is to be started with lovenox bridge. HR on telemetry is ranging from 70-80's SBP is 80-90's( she is not symptomatic). She is to receive Digoxin 125mg daily starting at 1700 today. She is on Lopressor 50mg PO BID with parameters. #3 h/o DHF; NYHA class 3 stage C. + inspiratory crackles with increased O2 requirements. CXR today reveals chronic left hemidiaphram elevation with slight right pleural effusion compared to CXR from 11/16/2018. Will give 20mg IVP lasix as trial and monitor urine output. #4 Moderate to severe MR; will give one time dose of 20mg IV Lasix and monitor. no ACEI/ARB due to hypotension. #4 Disposition; pending course will follow. Patient is DNR. Attending: Narciso Mcfadden
[2018-11-19] MEDS ORDERED: Furosemide IV* 10 MG/ML 2 ML VIAL (20 MG) IV ONE (09:12)
[2018-11-19] MEDS: Docusate CAP* 100 MG PO SCH ×2 (11:19→21:10)
[2018-11-19] MEDS: Metoprolol Tartrate TAB* 50 mg PO SCH ×2 (11:20→21:09)
[2018-11-19] MEDS: Enoxaparin(*) 40 MG/0.4 ML SYR SUBCUT SCH (11:20)
--- NOTE | 2018-11-19 12:18 | PN ---
Progress Note - Progress Note Date of Service: 11/19/18 Note: She is feeling much better, her BP is more stable and she no longer has a tachycardia. She has some minor orientation issues - thinks her surgery was 2 days ago. However, she received much lorazepam yesterday. She will do better outside of the ICU * transfer to [facility] * stop tele * remove Stubbs catheter * PMRU consult
--- NOTE | 2018-11-19 13:28 | PN ---
Progress Note - Progress Note Date of Service: 11/19/18 SOAP: Subjective: []Pt seen at bedside in the ICU today. She denies RLE pain. Denies CP, SOB, dizziness, nausea. Objective: []General: NAD, appears comfortable RLE: Right hip dressing CDI, thigh is soft, DF/PF intact, sensation intact to light touch distally, DP2+ Calves supple, nontender, no erythema, no edema Assessment: [] R hip subtroch fracture POD 1 s/p IMN of right hip Dr Newman Plan: []TTWB RLE PT/OT DVT prophy: Lovenox bridge to coumadin Daily dry sterile dressing change starting 11/20 Transfer back to [facility] per Dr Knapp Vital Signs Temp 98.3 F 11/19/18 12:40 Pulse 90 11/19/18 12:00 Resp 24 11/19/18 12:40 BP 103/72 11/19/18 12:00 Pulse Ox 89 11/19/18 12:00 Intake & Output 11/18/18 11/19/18 11/19/18 18:59 06:59 18:59 Intake Total 1300 2132 240 Output Total 450 310 315 Balance 850 1822 -75 Intake: IV Fluids 1300 866 LR 1300 866 Oral 0 980 240 Packed Cells 286 Output: Stubbs 450 310 315 Other: # Bowel Movements 0 Laboratory Last Values WBC 11.6 10^3/ul (3.5-10.8) H 11/18/18 05:28 RBC 2.76 10^6/ul (4.00-5.40) L 11/18/18 05:28 Hgb 9.9 g/dl (12.0-16.0) L 11/19/18 04:30 Hct 30 % (35-47) L 11/19/18 04:30 MCV 101 fL (80-97) H 11/18/18 05:28 MCH 35 pg (27-31) H 11/18/18 05:28 MCHC 34 g/dl (31-36) 11/18/18 05:28 RDW 17 % (10.5-15) H 11/18/18 05:28 Plt Count 174 10^3/ul (150-450) 11/18/18 05:28 MPV 10.2 fL (7.4-10.4) 11/18/18 05:28 Neut % (Auto) 70.5 % 11/18/18 05:28 Lymph % (Auto) 15.0 % 11/18/18 05:28 [place] % (Auto) 13.6 % 11/18/18 05:28 Eos % (Auto) 0.3 % 11/18/18 05:28 Baso % (Auto) 0.6 % 11/18/18 05:28 Absolute Neuts (auto) 8.2 10^3/ul (1.5-7.7) H 11/18/18 05:28 Absolute Lymphs (auto) 1.7 10^3/ul (1.0-4.8) 11/18/18 05:28 Absolute Monos (auto) 1.6 10^3/ul (0-0.8) H 11/18/18 05:28 Absolute Eos (auto) 0 10^3/ul (0-0.6) 11/18/18 05:28 Absolute Basos (auto) 0.1 10^3/ul (0-0.2) 11/18/18 05:28 Absolute Nucleated RBC 0 10^3/ul 11/18/18 05:28 Nucleated RBC % 0.4 11/18/18 05:28 INR (Anticoag Therapy) 0.94 (0.77-1.02) 11/19/18 06:32 APTT 30.1 seconds (26.0-36.3) 11/17/18 05:42 Sodium 137 mmol/L (135-145) 11/19/18 04:30 Potassium 4.9 mmol/L (3.5-5.0) 11/19/18 06:32 Chloride 104 mmol/L (101-111) 11/19/18 04:30 Carbon Dioxide 28 mmol/L (22-32) 11/19/18 04:30 Anion Gap 5 mmol/L (2-11) 11/19/18 04:30 BUN 42 mg/dL (6-24) H 11/19/18 04:30 Creatinine 1.21 mg/dL (0.51-0.95) H 11/19/18 04:30 Est GFR ( Amer) 50.9 (>60) 11/19/18 04:30 Est GFR (Non-Af Amer) 42.1 (>60) 11/19/18 04:30 BUN/Creatinine Ratio 34.7 (8-20) H 11/19/18 04:30 Glucose 132 mg/dL (70-100) H 11/19/18 04:30 POC Glucose (mg/dL) 152 mg/dL (70-100) H 11/19/18 12:25 Calcium 8.6 mg/dL (8.6-10.3) 11/19/18 04:30 Magnesium 1.8 mg/dL (1.9-2.7) L 11/18/18 05:28 Total Bilirubin 1.30 mg/dL (0.2-1.0) H 11/16/18 19:35 AST 16 U/L (13-39) 11/16/18 19:35 ALT 16 U/L (7-52) 11/16/18 19:35 Alkaline Phosphatase 73 U/L (34-104) 11/16/18 19:35 Total Protein 5.7 g/dL (6.4-8.9) L 11/16/18 19:35 Albumin 3.9 g/dL (3.2-5.2) 11/16/18 19:35 Globulin 1.8 g/dL (2-4) L 11/16/18 19:35 Albumin/Globulin Ratio 2.2 (1-3) 11/16/18 19:35 Urine Color Yellow 11/16/18 17:25 Urine Appearance Cloudy 11/16/18 17:25 Urine pH 5.0 (5-9) 11/16/18 17:25 Ur Specific [place] 1.025 (1.010-1.030) 11/16/18 17:25 Urine Protein Negative (Negative) 11/16/18 17:25 Urine Ketones Trace (Negative) A 11/16/18 17:25 Urine Blood 3+ (Negative) A 11/16/18 17:25 Urine Nitrate Negative (Negative) 11/16/18 17:25 Urine Bilirubin Negative (Negative) 11/16/18 17:25 Urine Urobilinogen Negative (Negative) 11/16/18 17:25 Ur Leukocyte Esterase Negative (Negative) 11/16/18 17:25 Urine WBC (Auto) Trace(0-5/hpf) (Absent) 11/16/18 17:25 Urine RBC (Auto) 3+(>10/hpf) (Absent) A 11/16/18 17:25 Ur Squamous Epith Cells Present (Absent) A 11/16/18 17:25 Urine Bacteria Absent (Absent) 11/16/18 17:25 Urine Glucose Negative (Negative) 11/16/18 17:25 Blood Type A Positive 11/16/18 19:35 Antibody Screen Negative 11/16/18 19:35 Crossmatch See Detail 11/16/18 19:35
[2018-11-19] MEDS: Digoxin TAB* 0.125 MG PO SCH (16:59)
[2018-11-19] MEDS ORDERED: Warfarin TAB(*) 5 MG PO ONE (17:00)
[2018-11-19] MEDS: Melatonin 3 MG TAB PO PRN (21:21)
[2018-11-20] MEDS: Acetaminophen TAB* 325 MG PO SCH ×4 (04:21→21:13)
[2018-11-20 07:09] LABS: Hematocrit 27 % (35-47); Mean Corpuscular HGB Conc 34 g/dl (31-36); Mean Corpuscular Hemoglobin 33 pg (27-31); Mean Corpuscular Volume 98 fL (80-97); Platelet Count 152 10^3/ul (150-450); Red Blood Count 2.71 10^6/ul (4.00-5.40); Red Cell Distribution Width 19 % (10.5-15); White Blood Count 11.6 10^3/ul (3.5-10.8)
[2018-11-20 07:16] LABS: INR 1.14 (0.77-1.02)
[2018-11-20 07:26] LABS: BUN/Creatinine Ratio 46.7 (8-20); Calcium 8.8 mg/dL (8.6-10.3); EGFR Non-African American 49.6 (>60); Potassium 4.1 mmol/L (3.5-5.0)
[2018-11-20 08:03] LABS: ABS Basophils 0.1 10^3/ul (0-0.2); ABS Eosinophils 0 10^3/ul (0-0.6); ABS Lymphocytes 1.6 10^3/ul (1.0-4.8); ABS Monocytes 1.2 10^3/ul (0-0.8); ABS Neutrophils 8.7 10^3/ul (1.5-7.7); ABS Nucleated RBC 0 10^3/ul; Eosinophil % 0.2 %; Large Platelets Present; Lymphocyte % 14.1 %; Nucleated Red Blood Cells % 0.3; Polychromasia 1+
[2018-11-20] MEDS ORDERED: Mirtazapine TAB* 15 MG PO PRN (08:37)
--- NOTE | 2018-11-20 08:43 | PN ---
Subjective - Subjective Reason for Note: Progress Note History: She is day 2 post open fixation of her right hip fracture with an intramedullary nail. She has no pain. She was seen by OT and PT yesterday. She has had some problem with urination that are finally solved. She has no other new symptoms Hypotension, atrial fibrillation, tachycardia and mitral regurgitation: Her BP has improved, her pulse has been on target and she has had no symptoms of chest pain/dyspnea Depression: She has slept badly and acknowledges she has symptoms of depression. Her daughter and also her Bill has been declining. She states her appetite is not good and she is not feeling motivated. She has anhedonia and a sense of hopelessness. Active Problems: Active Problems Atrial fibrillation (Acute) I48.91 - Admitted to tele - Holding Coumadin Depression (Acute) F32.9 Fall from slipping on ice (Acute) W00.9XXA Hip fracture requiring operative repair (Acute) S72.009A Hypotension (Acute) Leukocytosis (Acute) D72.829 - WBC is 17.1 - I suspected this is 2/2 to fall - CBC to be rechecked tomorrow Tachycardia (Acute) R00.0 Anticoagulant therapy (Chronic) Z79.01 - INR 1.52 - Hold Warfarin - 2.5 mg Vitamin K ordered. 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 - Reassess as soon as possible. - SCDs ordered Diastolic CHF (Chronic) I50.30 - Last Echo in 2017, therefore, repeat echo for the morning. - Patient is established with [facility]. Dr Carmona called made aware of patient. 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 Essential hypertension (Chronic) I10 - Cont metoprolol - Hold Lasix and Spironolactone Hypercholesterolemia (Chronic) E78.0 - Defer to primary care Impaired fasting glycaemia (Chronic) R73.01 - Finger sticks ordered, but no coverage Osteoporosis (Chronic) M81.0 Pulmonary hypertension (Chronic) I27.2 Current Medications: Current Medications Acetaminophen (Tylenol Tab*) 650 mg PO Q6H [facility] Last Admin: 11/20/18 04:21 Dose: 650 mg Digoxin (Lanoxin Tab*) 0.125 mg PO 1700 [facility] Last Admin: 11/19/18 16:59 Dose: 0.125 mg Docusate Sodium (Colace Cap*) 100 mg PO BID [facility] Last Admin: 11/19/18 21:10 Dose: 100 mg Enoxaparin Sodium (Lovenox(*)) 40 mg SUBCUT Q24H [facility] Last Admin: 11/19/18 11:20 Dose: 40 mg Melatonin (Melatonin) 3 mg PO BEDTIME PRN PRN Reason: SLEEP Last Admin: 11/19/18 21:21 Dose: 3 mg Metoprolol Tartrate (Lopressor Tab*) 50 mg PO BID [facility] Last Admin: 11/19/18 21:09 Dose: 50 mg Ondansetron HCl (Zofran Inj*) 4 mg IV Q6H PRN PRN Reason: NAUSEA Oxycodone/Acetaminophen (Percocet 5/325 Tab*) 1 tab PO Q6H PRN PRN Reason: PAIN Pharmacy Profile Note (Coumadin Per Pharmacy*) 0 note FOLLOW UP .PER PHARMACY PROTOC [facility]; Protocol - Review of Systems Constitutional Symptoms: Yes: Fatigue, No: Fever Pulmonary: Negative: Cough, Sputum, Respiratory Distress Cardiology: Negative: Chest Pain, Palpitations, Swelling of Ankles Gastroenterology: Positive: Anorexia, Constipation Negative: Abdominal Pain, Nausea, Vomiting Genital - Urinary: Positive: Other - see HPI Psychiatry: Positive: Depression, Anxiety Home Medications: Home Medications Medication Instructions Recorded Confirmed Type Furosemide TAB* [Lasix TAB*] 40 mg PO DAILY 90 Days tab 02/25/17 11/16/18 Rx Metoprolol Tartrate TAB* 50 mg PO BID #180 tab 02/25/17 11/16/18 Rx [Lopressor TAB*] Spironolactone TAB* [Aldactone TAB 25 mg PO DAILY #90 tab 02/25/17 11/16/18 Rx 25 MG*] Cholecalciferol TAB* [Vitamin D 400 unit PO DAILY 11/16/18 11/16/18 History TAB*] Glucosa Bardales 2Kcl/Chondroitin Bardales 1 cap PO BID 11/16/18 11/16/18 History [Glucosamine & Chondroitin Cap] Warfarin TAB(*) [Coumadin TAB(*)] 2.5 mg PO DAILY 11/16/18 11/16/18 History Allergies: Allergies Allergy/AdvReac Type Severity Reaction Status Date / Time No Known Allergies Allergy Verified 11/16/18 14:32 Objective - Vital Signs Vital Signs: Vital Signs 11/19/18 11/19/18 11/19/18 08:45 09:00 09:11 Temperature Pulse Rate 86 90 Respiratory 30 22 23 Rate Blood Pressure 88/62 99/66 (mmHg) O2 Sat by Pulse 98 100 Oximetry 11/19/18 11/19/18 11/19/18 09:15 09:30 09:46 Temperature Pulse Rate 84 92 Respiratory 27 23 29 Rate Blood Pressure 113/69 101/79 108/80 (mmHg) O2 Sat by Pulse 98 100 Oximetry 11/19/18 11/19/18 11/19/18 10:00 10:01 10:16 Temperature Pulse Rate 85 Respiratory 23 26 34 Rate Blood Pressure 105/70 92/74 (mmHg) O2 Sat by Pulse 100 Oximetry 11/19/18 11/19/18 11/19/18 10:30 10:46 11:00 Temperature Pulse Rate 93 85 Respiratory 35 31 37 Rate Blood Pressure 97/79 102/81 114/93 (mmHg) O2 Sat by Pulse 100 100 Oximetry 11/19/18 11/19/18 11/19/18 11:16 11:30 11:32 Temperature Pulse Rate 90 91 Respiratory 27 31 30 Rate Blood Pressure 114/67 97/80 107/70 (mmHg) O2 Sat by Pulse 97 Oximetry 11/19/18 11/19/18 11/19/18 11:45 12:00 12:40 Temperature 98.3 F Pulse Rate 89 90 Respiratory 27 27 24 Rate Blood Pressure 94/70 103/72 (mmHg) O2 Sat by Pulse 100 89 Oximetry 11/19/18 11/19/18 11/19/18 15:30 16:48 17:32 Temperature 97.5 F 98.7 F 98.7 F Pulse Rate 93 93 Respiratory 20 20 Rate Blood Pressure 108/80 108/80 (mmHg) O2 Sat by Pulse 98 98 Oximetry 11/19/18 11/19/18 11/20/18 20:00 21:07 00:36 Temperature 97.2 F 97.4 F Pulse Rate 97 80 Respiratory 20 16 18 Rate Blood Pressure 123/82 106/69 (mmHg) O2 Sat by Pulse 100 100 Oximetry 11/20/18 04:08 Temperature 97.4 F Pulse Rate 84 Respiratory 18 Rate Blood Pressure 107/66 (mmHg) O2 Sat by Pulse 100 Oximetry - Intake and Output Intake and Output: Intake & Output 11/17/18 11/18/18 11/19/18 11/20/18 11:59 11:59 11:59 11:59 Intake Total 0 360 3672 940 Output Total 325 480 900 300 Balance -325 -120 2772 640 Weight 122 lb Intake: IV Fluids 2166 175 LR 2166 175 Oral 0 360 1220 765 Packed Cells 286 Output: Urine 0 125 Stubbs 325 480 900 175 Other: Estimated Void Large # Bowel Movements 0 # Voids 1 ADLs: Meal Record Start: 11/16/18 22: 22 Freq: DAILY@0900,1400,1800 Status: Complete Protocol: Created 11/16/18 22:22 System (Rec: 11/16/18 22:22 System TELE-C15) Document 11/17/18 13:59 [id number] (Rec: 11/17/18 14:00 [id number] TELE-C11) Document 11/17/18 17:22 [id number] (Rec: 11/17/18 17:22 [id number] TELE-M06) Document 11/18/18 09:00 [id number] (Rec: 11/18/18 12:47 [id number] TELE-C10) Document 11/18/18 14:00 [id number] (Rec: 11/18/18 15:20 NIW0154 TELE-C08) Document 11/18/18 18:00 [id number] (Rec: 11/18/18 18:53 [id number] TELE-C01) ADLs: Meal Record Start: 11/18/18 21: 12 Freq: 09,13,18 Status: Complete Protocol: Created 11/18/18 21:12 [id number] (Rec: 11/18/18 21:12 [id number] ICU-C12) Document 11/19/18 09:00 [id number] (Rec: 11/19/18 12:04 [id number] ICU-L03) ADLs: Meal Record Start: 11/19/18 12: 51 Freq: 09,13,18 Status: Active Protocol: Created 11/19/18 12:51 [id number] (Rec: 11/19/18 12:51 [id number] ICU-L03) Document 11/19/18 13:00 [id number] (Rec: 11/19/18 14:17 [id number] ICU-L03) Intake and Output Start: 11/16/18 14: 32 Freq: Status: Complete Protocol: Created 11/16/18 14:32 System (Rec: 11/16/18 14:32 System [id number]-C07) Intake and Output Start: 11/16/18 22: 22 Freq: DAILY@0600,1400,2200 Status: Complete Protocol: Created 11/16/18 22:22 System (Rec: 11/16/18 22:22 System TELE-C15) Document 11/17/18 06:00 [id number] (Rec: 11/17/18 06:01 QQA3266 TELE-C11) Document 11/17/18 14:00 [id number] (Rec: 11/17/18 15:34 KOJ6763 TELE-C10) Document 11/17/18 22:00 [id number] (Rec: 11/17/18 22:22 ZAZ6877 TELE-C01) Document 11/18/18 06:00 KLM2712 (Rec: 11/18/18 07:36 [id number] TELE-C09) Document 11/18/18 14:00 TWY0534 (Rec: 11/18/18 15:20 UTF5546 TELE-C08) Intake and Output Start: 11/18/18 21: 12 Freq: Q1HR Status: Complete Protocol: Created 11/18/18 21:12 GUT2101 (Rec: 11/18/18 21:12 [id number] ICU-C12) Document 11/18/18 23:56 [id number] (Rec: 11/18/18 23:56 QSB8854 ICU-C10) Document 11/19/18 00:00 QEK1453 (Rec: 11/19/18 00:28 ALT5015 ICU-C16) Document 11/19/18 01:00 OVA5836 (Rec: 11/19/18 01:59 NFZ7010 ICU-C16) Document 11/19/18 02:00 RSP9145 (Rec: 11/19/18 02:09 VYG5623 ICU-C16) Document 11/19/18 03:00 IAW6982 (Rec: 11/19/18 04:05 [id number] ICU-C16) Document 11/19/18 04:00 QGT4424 (Rec: 11/19/18 04:05 [id number] ICU-C16) Document 11/19/18 06:00 CFG9627 (Rec: 11/19/18 06:14 ASG0465 ICU-C10) Document 11/19/18 06:00 RAK3930 (Rec: 11/19/18 06:16 [id number] ICU-C16) Document 11/19/18 07:57 AGN2239 (Rec: 11/19/18 07:57 [id number] [facility]-M03 ) Document 11/19/18 09:00 AOV3554 (Rec: 11/19/18 11:03 SBC2396 ICU-L03) Document 11/19/18 10:00 COQ7396 (Rec: 11/19/18 12:20 ZSV8810 ICU-L03) Document 11/19/18 11:00 HGP4560 (Rec: 11/19/18 12:22 TIG2632 ICU-L03) Document 11/19/18 12:40 [id number] (Rec: 11/19/18 12:49 [id number] ICU-L03) Intake and Output Start: 11/19/18 12: 51 Freq: DAILY@0600,1400,2200 Status: Active Protocol: Created 11/19/18 12:51 [id number] (Rec: 11/19/18 12:51 [id number] ICU-L03) Document 11/19/18 14:00 [id number] (Rec: 11/19/18 14:10 [id number] ICU-L03) Document 11/19/18 21:44 [id number] (Rec: 11/19/18 22:00 CYS8315 [facility]-M18) Document 11/19/18 23:31 HVH8400 (Rec: 11/19/18 23:31 [id number] [facility]-M18) Document 11/20/18 03:20 FCY5553 (Rec: 11/20/18 05:27 COF6664 [facility]-M18) Document 11/20/18 05:13 [id number] (Rec: 11/20/18 05:14 [id number] [facility]-C10) Document 11/20/18 06:04 [id number] (Rec: 11/20/18 06:04 [id number] [facility]-M18) - Physical Exam General Physical Exam Comment: Flat affect. She is not in any distress General: No Cyanosis, Yes Anemia, No Jaundice, No Clubbing Lungs and Chest: Yes: Chest Expansion Full, Chest Expansion Symetrica, Percussion Note Resonant, Vessicular Breath Sounds. No: Crackles, Wheezes Heart Rate and Rhythm: Irregular Additional Cardiovascular: Yes: Normal Heart Sounds, Heart Murmur. No: Pedal Edema Abdominal Exam: Yes: Soft, Bowel Sounds Present. No: Distention, Abdominal Tenderness - Extremities Cranial Nerves II-XII Intact: Yes Limbs: Abnormal Power - generally and not focally weak - Neuro Orientation: A/O x3 Psychiatric: Depressed Speech: Normal Results - Results Lab Results: Laboratory Results - last 24 hr 11/19/18 11/20/18 11/20/18 12:25 06:43 06:43 WBC 11.6 H RBC 2.71 L Hgb 9.0 L Hct 27 L MCV 98 H MCH 33 H MCHC 34 RDW 19 H Plt Count 152 MPV 10.0 Neut % (Auto) 74.7 Lymph % (Auto) 14.1 [place] % (Auto) 10.4 Eos % (Auto) 0.2 Baso % (Auto) 0.6 Absolute Neuts (auto) 8.7 H Absolute Lymphs (auto) 1.6 Absolute Monos (auto) 1.2 H Absolute Eos (auto) 0 Absolute Basos (auto) 0.1 Absolute Nucleated RBC 0 Nucleated RBC % 0.3 Large Platelets Present Polychromasia 1+ Hypochromasia 2+ INR (Anticoag Therapy) Sodium 135 Potassium 4.1 Chloride 100 L Carbon Dioxide 31 Anion Gap 4 BUN 49 H Creatinine 1.05 H Est GFR ( Amer) 60.0 Est GFR (Non-Af Amer) 49.6 BUN/Creatinine Ratio 46.7 H Glucose 120 H POC Glucose (mg/dL) 152 H Calcium 8.8 02/01/19 06:43 WBC RBC Hgb Hct MCV MCH MCHC RDW Plt Count MPV Neut % (Auto) Lymph % (Auto) [place] % (Auto) Eos % (Auto) Baso % (Auto) Absolute Neuts (auto) Absolute Lymphs (auto) Absolute Monos (auto) Absolute Eos (auto) Absolute Basos (auto) Absolute Nucleated RBC Nucleated RBC % Large Platelets Polychromasia Hypochromasia INR (Anticoag Therapy) 1.14 H Sodium Potassium Chloride Carbon Dioxide Anion Gap BUN Creatinine Est GFR ( Amer) Est GFR (Non-Af Amer) BUN/Creatinine Ratio Glucose POC Glucose (mg/dL) Calcium Assessment - Problem List Assessment: Patient Problems Atrial fibrillation (Acute) Depression (Acute) Fall from slipping on ice (Acute) Hip fracture requiring operative repair (Acute) Hypotension (Acute) Leukocytosis (Acute) Tachycardia (Acute) Anticoagulant therapy (Chronic) Collapse of thoracic vertebra due to osteoporosis (Chronic) Creatinine elevation (Chronic) DNR (do not resuscitate) (Chronic) DVT prophylaxis (Chronic) Diastolic CHF (Chronic) Diastolic dysfunction (Chronic) Diverticular disease of colon (Chronic) Essential hypertension (Chronic) Hypercholesterolemia (Chronic) Impaired fasting glycaemia (Chronic) Osteoporosis (Chronic) Pulmonary hypertension (Chronic) Plan: Fall from slipping on ice (Acute)Hip fracture requiring operative repair (Acute ) Day 2 post operative. She was set back 1 day by a combination of her tachycardia/hypotension and use of lorazepam. She is now much better from these points of view and I think in a better position to be assessed for OT and PT/PMRU. Atrial fibrillation (Acute) Rate controlled - hemodynamically stable Depression (Acute) I have been Charity Roach and her Je Loza's primary care provider for 25 years. She has a strong and positive character, but in recent years she has been beset by tragedies (her daughter dying) and also has watched her age and decline. She acknowledges she has symptoms of depression - this is more than sadness. Some of the vegetative symptoms have set her back - poor appetite, lack of energy/motivation, poor sleep. I discussed with her starting a small dose of mirtazepine - she has agreed to this. She will take Mirtazepine 7.5 mg qhs. Hypotension (Acute) resolved Leukocytosis (Acute) improved Tachycardia (Acute) controlled with digoxin Anticoagulant therapy (Chronic) we are starting her back on warfarin secondary diagnoses: Collapse of thoracic vertebra due to osteoporosis (Chronic) Creatinine elevation (Chronic) DNR (do not resuscitate) (Chronic) DVT prophylaxis (Chronic) Diastolic CHF (Chronic) Diastolic dysfunction (Chronic) Diverticular disease of colon (Chronic) Essential hypertension (Chronic) Hypercholesterolemia (Chronic) Impaired fasting glycaemia (Chronic) Osteoporosis (Chronic) Pulmonary hypertension (Chronic) I think that the initially [facility] consult was colored by her bumpy CVS post- operative course. This has stabilized. I think that once she is motivated, she will be an excellent candidate for inpatient rehab in the [facility]. She acknowledges that depression is one of her barriers and I think that social science research assistant input would help her a lot - plus improved sleep and a small dose of mirtazepine.
[2018-11-20] MEDS: Docusate CAP* 100 MG PO SCH ×2 (08:53→21:12)
[2018-11-20] MEDS: Metoprolol Tartrate TAB* 50 mg PO SCH ×2 (08:54→21:16)
[2018-11-20] MEDS: Enoxaparin(*) 40 MG/0.4 ML SYR SUBCUT SCH (08:54)
--- NOTE | 2018-11-20 09:26 | PN ---
<MillymeghanaKatya - Last Filed: 11/20/18 09:20> Subjective Date of Service: 11/20/18 - Afib, DHF, MR Interval History: No events last night. Patient lying in bed awake upon entering room. She underwent right hip intramedullary nail 11/18/2018. She denies increased SOB She denies chest pain, palpitations, sensation of heart racing, dizziness, confusion, headache or vision change. She states she was unable to get adequate sleep last night due to environmental noise ( room across from nursing station) Otherwise she denies further complaints. Medications Active Medications: Acetaminophen (Tylenol Tab*) 650 mg PO Q6H [facility] Last Admin: 11/20/18 04:21 Dose: 650 mg Digoxin (Lanoxin Tab*) 0.125 mg PO 1700 [facility] Last Admin: 11/19/18 16:59 Dose: 0.125 mg Docusate Sodium (Colace Cap*) 100 mg PO BID [facility] Last Admin: 11/20/18 08:53 Dose: 100 mg Enoxaparin Sodium (Lovenox(*)) 40 mg SUBCUT Q24H [facility] Last Admin: 11/20/18 08:54 Dose: 40 mg Melatonin (Melatonin) 3 mg PO BEDTIME PRN PRN Reason: SLEEP Last Admin: 11/19/18 21:21 Dose: 3 mg Metoprolol Tartrate (Lopressor Tab*) 50 mg PO BID [facility] Last Admin: 11/20/18 08:54 Dose: 50 mg Mirtazapine (Remeron Tab*) 7.5 mg PO BEDTIME PRN PRN Reason: SLEEP Ondansetron HCl (Zofran Inj*) 4 mg IV Q6H PRN PRN Reason: NAUSEA Oxycodone/Acetaminophen (Percocet 5/325 Tab*) 1 tab PO Q6H PRN PRN Reason: PAIN Pharmacy Profile Note (Coumadin Per Pharmacy*) 0 note FOLLOW UP .PER PHARMACY PROTOC [facility]; Protocol Objective Vital Signs: Temp Pulse Resp BP Pulse Ox 97.4 F 84 18 107/66 100 11/20/18 04:08 11/20/18 04:08 11/20/18 04:08 11/20/18 04:08 11/20/18 04:08 Oxygen Devices in Use Now: Nasal Cannula Appearance: Well nourished, NAD A+O x3 Ears/Nose/Mouth/Throat: NL Teeth, Lips, Gums, Clear Oropharnyx, Mucous Membranes Moist Neck: NL Appearance and Movements; NL JVP, Trachea Midline, No Thyroid Enlargement, Masses Respiratory: Symmetrical Chest Expansion and Respiratory Effort, - - slight inspiratory crackles noted in left base otherwise clear. Cardiovascular: No Edema, - - normal S1, S2 irregular rate and rhythm. no gallop or rub. + mitral murmur Abdominal: NL Sounds; No Tenderness; No Distention, No Hepatosplenomegaly Skin: - - right pretibial surface has + wound dressing in place., bruising noted on posterior aspect of head. Neurological: Alert and Oriented x 3, - - right lower extremity is externally rotated. distal pulses not palpable, per RN + dorsalis pedis pulse with doppler. cool to touch Lines/Tubes/Other Access: Clean, Dry and Intact Peripheral IV Laboratory Results: 11/20/18 06:43 11/20/18 06:43 INR (Anticoag Therapy) 1.14 (0.77-1.02) H 11/20/18 06:43 APTT 30.1 seconds (26.0-36.3) 11/17/18 05:42 Total Bilirubin 1.30 mg/dL (0.2-1.0) H 11/16/18 19:35 AST 16 U/L (13-39) 11/16/18 19:35 ALT 16 U/L (7-52) 11/16/18 19:35 Alkaline Phosphatase 73 U/L (34-104) 11/16/18 19:35 Total Protein 5.7 g/dL (6.4-8.9) L 11/16/18 19:35 Albumin 3.9 g/dL (3.2-5.2) 11/16/18 19:35 Globulin 1.8 g/dL (2-4) L 11/16/18 19:35 Albumin/Globulin Ratio 2.2 (1-3) 11/16/18 19:35 Laboratory Results - last 24 hr 11/19/18 11/20/18 11/20/18 12:25 06:43 06:43 WBC 11.6 H RBC 2.71 L Hgb 9.0 L Hct 27 L MCV 98 H MCH 33 H MCHC 34 RDW 19 H Plt Count 152 MPV 10.0 Neut % (Auto) 74.7 Lymph % (Auto) 14.1 [place] % (Auto) 10.4 Eos % (Auto) 0.2 Baso % (Auto) 0.6 Absolute Neuts (auto) 8.7 H Absolute Lymphs (auto) 1.6 Absolute Monos (auto) 1.2 H Absolute Eos (auto) 0 Absolute Basos (auto) 0.1 Absolute Nucleated RBC 0 Nucleated RBC % 0.3 Large Platelets Present Polychromasia 1+ Hypochromasia 2+ INR (Anticoag Therapy) Sodium 135 Potassium 4.1 Chloride 100 L Carbon Dioxide 31 Anion Gap 4 BUN 49 H Creatinine 1.05 H Est GFR ( Amer) 60.0 Est GFR (Non-Af Amer) 49.6 BUN/Creatinine Ratio 46.7 H Glucose 120 H POC Glucose (mg/dL) 152 H Calcium 8.8 11/20/18 06:43 WBC RBC Hgb Hct MCV MCH MCHC RDW Plt Count MPV Neut % (Auto) Lymph % (Auto) [place] % (Auto) Eos % (Auto) Baso % (Auto) Absolute Neuts (auto) Absolute Lymphs (auto) Absolute Monos (auto) Absolute Eos (auto) Absolute Basos (auto) Absolute Nucleated RBC Nucleated RBC % Large Platelets Polychromasia Hypochromasia INR (Anticoag Therapy) 1.14 H Sodium Potassium Chloride Carbon Dioxide Anion Gap BUN Creatinine Est GFR ( Amer) Est GFR (Non-Af Amer) BUN/Creatinine Ratio Glucose POC Glucose (mg/dL) Calcium Diagnostic Imaging: Echo 09/16/2019: LVEF hyperdynamic with moderate to severe VT CT Head per radiology report no acute intracranial abnormality. EKG Data: 09/17/2019 EKG was reviewed. Afib rate 94 rare PVCs. Telemetry reviewed Afib rates 70-80's Assessment/Plan #1 s/p mechanical fall resulting in right hip subtroch fracture s/p nail to right hip. Patient doing well except slight confusion. She did strike her head with mechanical fall. CT head was negative for acute process at time of presentation. she denies change in vision, headache, confusion or weakness. #2 h/o Permanent Afib; Chads Vasc 5 historically on coumadin. INR today 1.1, coumadin is to be started with lovenox bridge. HR on telemetry is ranging from 70-80's SBP is 80-90's( she is not symptomatic). She is receiving Digoxin 125mg daily and Lopressor 50mg PO BID with parameters. Rates are now well controlled. #3 h/o DHF; NYHA class 3 stage C. + inspiratory crackles improved after IV lasix that was given yesterday. #4 Moderate to severe MR; Appears compensated. No ACEI due to hypotension. #4 Disposition; pending course will sign off. Patient is DNR. Will d/w Dr. Narciso Mcfadden. Points of Discussion: The patient was seen by me in OR holding, HR 150's. Mild SOB, mild orthopnea, mildly nervous about upcoming surgery. Denied pain. Mucous membranes a bit dry, rare basilar crackles, Irregulular fast rate, no edema and appears comfortable lying in bed at 30 degrees. BP 133/80 5 mg IV lopressor given with HR decreasing to 95-100 bpm. A/p As above, chronic afib, CM, mechanical fall and fracture Beta darrell (and ACEI) held due to low BP. Now the patient's BP recovered, ventricular rate is up, likely due to rebound from metoprolol being held. I recommend proceeding to surgery, IV metoprolol has improved rate, could be given intra op PRN. Post op I recommend resuming oral BB, short acting OK so it can be held PRN. Cardiology will follow periop. Attending: Narciso Mcfadden <Narciso Mcfadden - Last Filed: 11/20/18 11:04> Medications Active Medications: Acetaminophen (Tylenol Tab*) 650 mg PO Q6H [facility] Last Admin: 11/20/18 10:18 Dose: 650 mg Digoxin (Lanoxin Tab*) 0.125 mg PO 1700 [facility] Last Admin: 11/19/18 16:59 Dose: 0.125 mg Docusate Sodium (Colace Cap*) 100 mg PO BID [facility] Last Admin: 11/20/18 08:53 Dose: 100 mg Enoxaparin Sodium (Lovenox(*)) 40 mg SUBCUT Q24H [facility] Last Admin: 11/20/18 08:54 Dose: 40 mg Melatonin (Melatonin) 3 mg PO BEDTIME PRN PRN Reason: SLEEP Last Admin: 11/19/18 21:21 Dose: 3 mg Metoprolol Tartrate (Lopressor Tab*) 50 mg PO BID [facility] Last Admin: 11/20/18 08:54 Dose: 50 mg Mirtazapine (Remeron Tab*) 7.5 mg PO BEDTIME PRN PRN Reason: SLEEP Ondansetron HCl (Zofran Inj*) 4 mg IV Q6H PRN PRN Reason: NAUSEA Oxycodone/Acetaminophen (Percocet 5/325 Tab*) 1 tab PO Q6H PRN PRN Reason: PAIN Pharmacy Profile Note (Coumadin Per Pharmacy*) 0 note FOLLOW UP .PER PHARMACY PROTOC [facility]; Protocol Objective Vital Signs: Temp Pulse Resp BP Pulse Ox 97.4 F 84 18 107/66 100 11/20/18 04:08 11/20/18 04:08 11/20/18 08:00 11/20/18 04:08 11/20/18 04:08 Laboratory Results: 11/20/18 06:43 11/20/18 06:43 INR (Anticoag Therapy) 1.14 (0.77-1.02) H 11/20/18 06:43 APTT 30.1 seconds (26.0-36.3) 11/17/18 05:42 Total Bilirubin 1.30 mg/dL (0.2-1.0) H 11/16/18 19:35 AST 16 U/L (13-39) 11/16/18 19:35 ALT 16 U/L (7-52) 11/16/18 19:35 Alkaline Phosphatase 73 U/L (34-104) 11/16/18 19:35 Total Protein 5.7 g/dL (6.4-8.9) L 11/16/18 19:35 Albumin 3.9 g/dL (3.2-5.2) 11/16/18 19:35 Globulin 1.8 g/dL (2-4) L 11/16/18 19:35 Albumin/Globulin Ratio 2.2 (1-3) 11/16/18 19:35
--- NOTE | 2018-11-20 12:04 | PN ---
Progress Note - Progress Note Date of Service: 11/20/18 SOAP: Subjective: []Patient seen at bedside, alert and oriented this am. No problems with SOB, CP or rapid a fib. Pain well managed. Objective: [] Vital Signs Temp 97.4 F 11/20/18 04:08 Pulse 84 11/20/18 04:08 Resp 18 11/20/18 08:00 BP 107/66 11/20/18 04:08 Pulse Ox 100 11/20/18 04:08 Intake & Output 11/19/18 11/20/18 11/20/18 18:59 06:59 18:59 Intake Total 955 225 120 Output Total 315 125 200 Balance 640 100 -80 Intake: IV Fluids 175 LR 175 Oral 780 225 120 Output: Urine 125 200 Stubbs 315 Other: Estimated Void Large # Bowel Movements 1 Estimated Stool Amount Large # Voids 1 Laboratory Results - last 24 hr 11/19/18 11/20/18 11/20/18 12:25 06:43 06:43 WBC 11.6 H RBC 2.71 L Hgb 9.0 L Hct 27 L MCV 98 H MCH 33 H MCHC 34 RDW 19 H Plt Count 152 MPV 10.0 Neut % (Auto) 74.7 Lymph % (Auto) 14.1 [place] % (Auto) 10.4 Eos % (Auto) 0.2 Baso % (Auto) 0.6 Absolute Neuts (auto) 8.7 H Absolute Lymphs (auto) 1.6 Absolute Monos (auto) 1.2 H Absolute Eos (auto) 0 Absolute Basos (auto) 0.1 Absolute Nucleated RBC 0 Nucleated RBC % 0.3 Large Platelets Present Polychromasia 1+ Hypochromasia 2+ INR (Anticoag Therapy) Sodium 135 Potassium 4.1 Chloride 100 L Carbon Dioxide 31 Anion Gap 4 BUN 49 H Creatinine 1.05 H Est GFR ( Amer) 60.0 Est GFR (Non-Af Amer) 49.6 BUN/Creatinine Ratio 46.7 H Glucose 120 H POC Glucose (mg/dL) 152 H Calcium 8.8 11/20/18 06:43 WBC RBC Hgb Hct MCV MCH MCHC RDW Plt Count MPV Neut % (Auto) Lymph % (Auto) [place] % (Auto) Eos % (Auto) Baso % (Auto) Absolute Neuts (auto) Absolute Lymphs (auto) Absolute Monos (auto) Absolute Eos (auto) Absolute Basos (auto) Absolute Nucleated RBC Nucleated RBC % Large Platelets Polychromasia Hypochromasia INR (Anticoag Therapy) 1.14 H Sodium Potassium Chloride Carbon Dioxide Anion Gap BUN Creatinine Est GFR ( Amer) Est GFR (Non-Af Amer) BUN/Creatinine Ratio Glucose POC Glucose (mg/dL) Calcium Right hip dressings changed, minimal old bloody drainage at proximal incision new 4x4s and Tegaderm applied calf NT and soft- dressing intact for skin tears lower leg +DF right ankle sensation and circulation intact distally Assessment: []s/p ORIF right subtrochanteric hip fracture POD #2 Plan: []PT/OT TTWB RLE- bone quality poor Coumadin resumed with Lovenox bridge until therapeutic Await rehab bed when stable for discharge
[2018-11-20] MEDS: Digoxin TAB* 0.125 MG PO SCH (16:28)
[2018-11-20] MEDS ORDERED: Warfarin TAB(*) 4 MG PO ONE (17:00)
[2018-11-20] MEDS: Melatonin 3 MG TAB PO PRN (21:15)
--- NOTE | 2018-11-20 21:35 | PN ---
Progress Note - Progress Note Date of Service: 11/20/18 Note: Pt seen and examined. Pain controlled. family at bedside. PT today. Was in ICU post op but recovering well. AFVSS NAD. R hip dressing in place. calf soft and nontender. SILT grossly. Able to DF/ PF ankle. Brisk cap refill. Laboratory Results - last 24 hr 11/20/18 11/20/18 11/20/18 06:43 06:43 06:43 WBC 11.6 H RBC 2.71 L Hgb 9.0 L Hct 27 L MCV 98 H MCH 33 H MCHC 34 RDW 19 H Plt Count 152 MPV 10.0 Neut % (Auto) 74.7 Lymph % (Auto) 14.1 [place] % (Auto) 10.4 Eos % (Auto) 0.2 Baso % (Auto) 0.6 Absolute Neuts (auto) 8.7 H Absolute Lymphs (auto) 1.6 Absolute Monos (auto) 1.2 H Absolute Eos (auto) 0 Absolute Basos (auto) 0.1 Absolute Nucleated RBC 0 Nucleated RBC % 0.3 Large Platelets Present Polychromasia 1+ Hypochromasia 2+ INR (Anticoag Therapy) 1.14 H Sodium 135 Potassium 4.1 Chloride 100 L Carbon Dioxide 31 Anion Gap 4 BUN 49 H Creatinine 1.05 H Est GFR ( Amer) 60.0 Est GFR (Non-Af Amer) 49.6 BUN/Creatinine Ratio 46.7 H Glucose 120 H Calcium 8.8 A/P POD#2 from R hip IMN TTWB DVT ppx= back on coumadin PT/OT Dispo to SNF when able f/u 2 weeks with me in clinic.
[2018-11-21] MEDS: Acetaminophen TAB* 325 MG PO SCH ×4 (05:16→23:07)
[2018-11-21 06:25] LABS: INR 1.63 (0.77-1.02)
[2018-11-21 06:33] LABS: Calcium 9.1 mg/dL (8.6-10.3); EGFR African American 63.5 (>60); EGFR Non-African American 52.4 (>60); Potassium 4.9 mmol/L (3.5-5.0)
--- NOTE | 2018-11-21 08:33 | PN ---
Progress Note - Progress Note Date of Service: 11/21/18 SOAP: Subjective: POD #3 Right hip ORIF. Doing well, states pain is minimal. Able to get out of bed with assist and walker. Denies CP/SOB, f/c, n/v or calf pain Objective: Vitals: Temp Pulse Resp BP Pulse Ox 97.4 F 88 18 98/63 100 02/12/08 07:33 /12/08 07:33 11/21/18 08:00 11/21/18 07:33 11/21/18 07:33 Gen: A&Ox3, NAD at rest laying in bed RLE: Hip dressings C/D/I. Mild edema to thigh but soft and NT. +f/e at ankle and MTPs. N/V intact Labs: Laboratory Results - last 24 hr 02/11/21/18 06:09 06:09 INR (Anticoag Therapy) 1.63 H Sodium 134 L Potassium 4.9 Chloride 100 L Carbon Dioxide 31 Anion Gap 3 BUN 46 H Creatinine 1.00 H Est GFR ( Amer) 63.5 Est GFR (Non-Af Amer) 52.4 BUN/Creatinine Ratio 46.0 H Glucose 105 H Calcium 9.1 Assessment: POD #3 Right hip ORIF Plan: Cont PT/OT Awaiting NH transfer/SNF Cont Coumadin for DVT ppx
[2018-11-21] MEDS: Metoprolol Tartrate TAB* 50 mg PO SCH ×2 (09:26→23:08)
[2018-11-21] MEDS: Docusate CAP* 100 MG PO SCH ×2 (09:36→23:08)
[2018-11-21] MEDS: Enoxaparin(*) 40 MG/0.4 ML SYR SUBCUT SCH (09:38)
[2018-11-21] MEDS: Digoxin TAB* 0.125 MG PO SCH (16:51)
[2018-11-21] MEDS ORDERED: Warfarin TAB(*) 2.5 MG PO ONE (17:00)
[2018-11-21] MEDS: Melatonin 3 MG TAB PO PRN (23:08)
[2018-11-21] MEDS ORDERED: Furosemide IV* 10 MG/ML 2 ML VIAL (20 MG) IV ONE (23:46)
[2018-11-22] MEDS: Acetaminophen TAB* 325 MG PO SCH ×4 (06:11→22:25)
[2018-11-22 06:45] LABS: Hematocrit 29 % (35-47); Hemoglobin 9.7 g/dl (12.0-16.0); Mean Corpuscular HGB Conc 34 g/dl (31-36); Mean Corpuscular Hemoglobin 33 pg (27-31); Mean Corpuscular Volume 99 fL (80-97); Mean Platelet Volume 10.3 fL (7.4-10.4); Platelet Count 208 10^3/ul (150-450); Red Blood Count 2.92 10^6/ul (4.00-5.40); Red Cell Distribution Width 20 % (10.5-15); White Blood Count 10.1 10^3/ul (3.5-10.8)
[2018-11-22 06:49] LABS: INR 1.8 (0.77-1.02)
[2018-11-22 07:02] LABS: BUN/Creatinine Ratio 45.2 (8-20); EGFR African American 91.2 (>60); EGFR Non-African American 75.4 (>60); Potassium 4.4 mmol/L (3.5-5.0)
[2018-11-22 07:08] LABS: ABS Basophils 0.1 10^3/ul (0-0.2); ABS Eosinophils 0.1 10^3/ul (0-0.6); ABS Lymphocytes 2.1 10^3/ul (1.0-4.8); ABS Monocytes 1.1 10^3/ul (0-0.8); ABS Neutrophils 6.8 10^3/ul (1.5-7.7)
[2018-11-22 07:12] LABS: Immature Granulocytes 6 % (0-9); Lymphocytes % 17 %; Metamyelocytes % 3 % (0-2); Monocytes % 4 %; Myelocytes % 3 % (0-1); Neutrophil % 70 %; Nucleated Red Blood Cells/100 9 (0-0); Variant Lymph % 1 % (0-6)
[2018-11-22 07:13] LABS: Polychromasia 2+
[2018-11-22 07:14] LABS: ABS Neutrophils 7.7 10^3/ul (1.5-7.7)
[2018-11-22 07:16] LABS: ABS Eosinophils 0.2 10^3/ul (0-0.6)
[2018-11-22] MEDS: Metoprolol Tartrate TAB* 50 mg PO SCH ×2 (09:39→19:58)
[2018-11-22] MEDS: Docusate CAP* 100 MG PO SCH ×2 (09:51→19:57)
[2018-11-22] MEDS: Enoxaparin(*) 40 MG/0.4 ML SYR SUBCUT SCH (10:05)
--- NOTE | 2018-11-22 11:50 | PN ---
Progress Note - Progress Note Date of Service: 11/22/18 SOAP: Subjective: POD #4 Right hip ORIF. Doing well, states pain is minimal. Reports being very tired, not wanting to get up to chair. Denies CP/SOB, f/c, n/v or calf pain Objective: Vitals: Temp Pulse Resp BP Pulse Ox 98.6 F 81 19 118/72 100 11/22/18 07:41 11/22/18 07:41 11/22/18 08:00 11/22/18 07:41 11/22/18 07:41 Gen: A&Ox3, NAD at rest laying in bed RLE: Hip dressings C/D/I. Mild edema to thigh but soft and NT. +f/e at ankle and MTPs. N/V intact Labs: Laboratory Results - last 24 hr 11/22/18 11/22/18 11/22/18 06:27 06:27 06:27 WBC 10.1 RBC 2.92 L Hgb 9.7 L Hct 29 L MCV 99 H MCH 33 H MCHC 34 RDW 20 H Plt Count 208 MPV 10.3 Neut % (Auto) Not Reportable Lymph % (Auto) Not Reportable [place] % (Auto) Not Reportable Eos % (Auto) Not Reportable Baso % (Auto) Not Reportable Absolute Neuts (auto) 6.8 Absolute Lymphs (auto) 2.1 Absolute Monos (auto) 1.1 H Absolute Eos (auto) 0.1 Absolute Basos (auto) 0.1 Absolute Nucleated RBC Not Reportable Immature Gran % 6 Neutrophils % 70 Lymphocytes % 17 Reactive Lymphs % 1 Monocytes % 4 Eosinophils % 2 Metamyelocytes % 3 H Myelocytes % 3 H Nucleated RBC % Not Reportable Abs Neuts (Manual) 7.7 Abs Lymphs (Manual) 1.8 Abs Monocytes (Manual) 0.4 Absolute Eos (Manual) 0.2 Nucleated RBCs/100 WBC 9 H Normal RBC Morphology Not Reportable Polychromasia 2+ Anisocytosis 2+ INR (Anticoag Therapy) 1.80 H Sodium 137 Potassium 4.4 Chloride 101 Carbon Dioxide 29 Anion Gap 7 BUN 33 H Creatinine 0.73 Est GFR ( Amer) 91.2 Est GFR (Non-Af Amer) 75.4 BUN/Creatinine Ratio 45.2 H Glucose 113 H Calcium 9.0 B-Natriuretic Peptide 11/22/18 06:27 WBC RBC Hgb Hct MCV MCH MCHC RDW Plt Count MPV Neut % (Auto) Lymph % (Auto) [place] % (Auto) Eos % (Auto) Baso % (Auto) Absolute Neuts (auto) Absolute Lymphs (auto) Absolute Monos (auto) Absolute Eos (auto) Absolute Basos (auto) Absolute Nucleated RBC Immature Gran % Neutrophils % Lymphocytes % Reactive Lymphs % Monocytes % Eosinophils % Metamyelocytes % Myelocytes % Nucleated RBC % Abs Neuts (Manual) Abs Lymphs (Manual) Abs Monocytes (Manual) Absolute Eos (Manual) Nucleated RBCs/100 WBC Normal RBC Morphology Polychromasia Anisocytosis INR (Anticoag Therapy) Sodium Potassium Chloride Carbon Dioxide Anion Gap BUN Creatinine Est GFR ( Amer) Est GFR (Non-Af Amer) BUN/Creatinine Ratio Glucose Calcium B-Natriuretic Peptide 227 H Assessment: POD #4 Right hip ORIF Plan: Cont PT/OT Awaiting NH transfer/SNF Cont Coumadin for DVT ppx
[2018-11-22] MEDS ORDERED: LORazepam TAB(*) 0.5 MG PO ONE (11:55)
[2018-11-22] MEDS ORDERED: Warfarin TAB(*) 2.5 MG PO ONE (17:00)
[2018-11-22] MEDS: Digoxin TAB* 0.125 MG PO SCH (17:37)
[2018-11-22] MEDS: Melatonin 3 MG TAB PO PRN (23:29)
[2018-11-23] MEDS: Acetaminophen TAB* 325 MG PO SCH ×5 (03:59→21:37)
[2018-11-23 06:04] LABS: INR 1.76 (0.77-1.02)
[2018-11-23 06:46] LABS: CO2 Carbon Dioxide 26 mmol/L (22-32); Calcium 8.8 mg/dL (8.6-10.3); Chloride 103 mmol/L (101-111); Sodium 138 mmol/L (135-145)
[2018-11-23 06:52] LABS: Blood Urea Nitrogen 34 mg/dL (6-24); EGFR African American 80.9 (>60); EGFR Non-African American 66.9 (>60); Glucose 113 mg/dL (70-100)
[2018-11-23 07:01] LABS: Anion Gap 9 mmol/L (2-11)
--- NOTE | 2018-11-23 08:31 | PN ---
Subjective - Subjective Reason for Note: Progress Note History: She has been short of breath and has a cough. She is fatigued and lacks motivation. The record shows no fever and she denies sweats and chills. Dr. Kelvin Saucedo gave her some furosemide yesterday. She denies any pain in her leg. Active Problems: Active Problems Atrial fibrillation (Acute) I48.91 - Admitted to tele - Holding Coumadin Depression (Acute) F32.9 Fall from slipping on ice (Acute) W00.9XXA Hip fracture requiring operative repair (Acute) S72.009A Hypotension (Acute) Leukocytosis (Acute) D72.829 - WBC is 17.1 - I suspected this is 2/2 to fall - CBC to be rechecked tomorrow Pleural effusion, left (Acute) J90 Tachycardia (Acute) R00.0 Anticoagulant therapy (Chronic) Z79.01 - INR 1.52 - Hold Warfarin - 2.5 mg Vitamin K ordered. 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 - Reassess as soon as possible. - SCDs ordered Diastolic CHF (Chronic) I50.30 - Last Echo in 2017, therefore, repeat echo for the morning. - Patient is established with [facility]. Dr Carmona called made aware of patient. 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 Essential hypertension (Chronic) I10 - Cont metoprolol - Hold Lasix and Spironolactone Hypercholesterolemia (Chronic) E78.0 - Defer to primary care Impaired fasting glycaemia (Chronic) R73.01 - Finger sticks ordered, but no coverage Osteoporosis (Chronic) M81.0 Pulmonary hypertension (Chronic) I27.2 Current Medications: Current Medications Acetaminophen (Tylenol Tab*) 650 mg PO Q6H [facility] Last Admin: 11/23/18 04:30 Dose: 650 mg Digoxin (Lanoxin Tab*) 0.125 mg PO 1700 [facility] Last Admin: 11/22/18 17:37 Dose: 0.125 mg Docusate Sodium (Colace Cap*) 100 mg PO BID [facility] Last Admin: 11/22/18 19:57 Dose: 100 mg Enoxaparin Sodium (Lovenox(*)) 40 mg SUBCUT Q24H [facility] Last Admin: 11/22/18 10:05 Dose: 40 mg Furosemide (Lasix Tab*) 20 mg PO DAILY [facility] Melatonin (Melatonin) 3 mg PO BEDTIME PRN PRN Reason: SLEEP Last Admin: 11/22/18 23:29 Dose: 3 mg Metoprolol Tartrate (Lopressor Tab*) 50 mg PO BID [facility] Last Admin: 11/22/18 19:58 Dose: Not Given Mirtazapine (Remeron Tab*) 7.5 mg PO BEDTIME PRN PRN Reason: SLEEP Ondansetron HCl (Zofran Inj*) 4 mg IV Q6H PRN PRN Reason: NAUSEA Oxycodone/Acetaminophen (Percocet 5/325 Tab*) 1 tab PO Q6H PRN PRN Reason: PAIN Last Admin: 11/21/18 01:40 Dose: 1 tab Pharmacy Profile Note (Coumadin Per Pharmacy*) 0 note FOLLOW UP .PER PHARMACY PROTOC [facility]; Protocol Spironolactone (Aldactone Tab*) 25 mg PO DAILY [facility] Home Medications: Home Medications Medication Instructions Recorded Confirmed Type Furosemide TAB* [Lasix TAB*] 40 mg PO DAILY 90 Days tab 02/25/17 11/16/18 Rx Metoprolol Tartrate TAB* 50 mg PO BID #180 tab 02/25/17 11/16/18 Rx [Lopressor TAB*] Spironolactone TAB* [Aldactone TAB 25 mg PO DAILY #90 tab 02/25/17 11/16/18 Rx 25 MG*] Cholecalciferol TAB* [Vitamin D 400 unit PO DAILY 11/16/18 11/16/18 History TAB*] Glucosa [place] 2Kcl/Chondroitin [place] 1 cap PO BID 11/16/18 11/16/18 History [Glucosamine & Chondroitin Cap] Warfarin TAB(*) [Coumadin TAB(*)] 2.5 mg PO DAILY 11/16/18 11/16/18 History Allergies: Allergies Allergy/AdvReac Type Severity Reaction Status Date / Time No Known Allergies Allergy Verified 11/16/18 14:32 Objective - Vital Signs Vital Signs: Vital Signs 11/22/18 11/22/18 11/22/18 11:52 13:00 14:47 Temperature 97.2 F Pulse Rate 92 Respiratory 16 19 19 Rate Blood Pressure 114/75 (mmHg) O2 Sat by Pulse 100 Oximetry 11/22/18 11/22/18 11/22/18 15:32 15:58 17:37 Temperature 97.7 F Pulse Rate 73 88 Respiratory 18 20 Rate Blood Pressure 114/81 (mmHg) O2 Sat by Pulse 97 Oximetry 11/22/18 11/22/18 11/22/18 19:30 19:48 23:19 Temperature 97.4 F 97.8 F Pulse Rate 82 48 Respiratory 18 17 24 Rate Blood Pressure 96/74 98/85 (mmHg) O2 Sat by Pulse 100 100 Oximetry 11/22/18 11/23/18 11/23/18 23:23 04:12 04:30 Temperature 97.6 F Pulse Rate 93 118 Respiratory 24 34 Rate Blood Pressure 109/71 113/78 (mmHg) O2 Sat by Pulse 100 Oximetry 11/23/18 11/23/18 05:35 05:36 Temperature Pulse Rate 103 Respiratory 24 Rate Blood Pressure (mmHg) O2 Sat by Pulse 100 Oximetry - Intake and Output Intake and Output: Intake & Output 11/20/18 11/21/18 11/22/18 11/23/18 11:59 11:59 11:59 11:59 Intake Total 1060 698 155 5280 Output Total 327 776 1198 500 Balance 560 30 -720 800 Intake: IV Fluids 175 LR 175 Oral 885 607 695 9149 Output: Urine 689 717 3163 500 Stubbs 175 Colostomy 150 Other: Estimated Void Large Medium Medium # Bowel Movements 1 Estimated Stool Amount Large # Voids 1 1 ADLs: Meal Record Start: 11/16/18 22: 22 Freq: DAILY@0900,1400,1800 Status: Complete Protocol: Created 11/16/18 22:22 System (Rec: 11/16/18 22:22 System TELE-C15) Document 11/17/18 13:59 [id number] (Rec: 11/17/18 14:00 [id number] TELE-C11) Document 11/17/18 17:22 OQW9347 (Rec: 11/17/18 17:22 NCP0843 TELE-M06) Document 11/18/18 09:00 DWU6156 (Rec: 11/18/18 12:47 QGX0461 TELE-C10) Document 11/18/18 14:00 PVH3802 (Rec: 11/18/18 15:20 BJT1314 TELE-C08) Document 11/18/18 18:00 QQD1312 (Rec: 11/18/18 18:53 CTE7949 TELE-C01) ADLs: Meal Record Start: 11/18/18 21: 12 Freq: 09,13,18 Status: Complete Protocol: Created 11/18/18 21:12 [id number] (Rec: 11/18/18 21:12 MFB1178 ICU-C12) Document 11/19/18 09:00 CFS3924 (Rec: 11/19/18 12:04 EOE5117 ICU-L03) ADLs: Meal Record Start: 11/19/18 12: 51 Freq: Status: Active Protocol: Created 11/19/18 12:51 [id number] (Rec: 11/19/18 12:51 [id number] ICU-L03) Document 11/19/18 13:00 EYS8476 (Rec: 11/19/18 14:17 KSG9492 ICU-L03) Document 11/20/18 09:46 RMW4501 (Rec: 11/20/18 09:46 VXH1033 SSU-C09) Document 11/21/18 10:42 PGM4064 (Rec: 11/21/18 12:42 KMH2687 SSU-C04) Document 11/21/18 14:01 DFD8083 (Rec: 11/21/18 14:01 NWO0572 SSU-C04) Document 11/21/18 18:33 NVU6318 (Rec: 11/21/18 18:34 QIX1935 SSU-C10) Intake and Output Start: 11/16/18 14: 32 Freq: Status: Complete Protocol: Created 11/16/18 14:32 System (Rec: 11/16/18 14:32 System EDRM-C07) Intake and Output Start: 11/16/18 22: 22 Freq: DAILY@0600,1400,2200 Status: Complete Protocol: Created 11/16/18 22:22 System (Rec: 11/16/18 22:22 System TELE-C15) Document 11/17/18 06:00 GVA2921 (Rec: 11/17/18 06:01 OWL1816 TELE-C11) Document 11/17/18 14:00 VBA9587 (Rec: 11/17/18 15:34 RZN5439 TELE-C10) Document 11/17/18 22:00 VNK0912 (Rec: 11/17/18 22:22 YKS6888 TELE-C01) Document 11/18/18 06:00 QNV8967 (Rec: 11/18/18 07:36 PYW3757 TELE-C09) Document 11/18/18 14:00 NKU4652 (Rec: 11/18/18 15:20 LSZ8990 TELE-C08) Intake and Output Start: 11/18/18 21: 12 Freq: Q1HR Status: Complete Protocol: Created 11/18/18 21:12 PAM8715 (Rec: 11/18/18 21:12 FSM7996 ICU-C12) Document 11/18/18 23:56 MOT4309 (Rec: 11/18/18 23:56 MNM1173 ICU-C10) Document 11/19/18 00:00 RAU4330 (Rec: 11/19/18 00:28 AZG1925 ICU-C16) Document 11/19/18 01:00 FHC2502 (Rec: 11/19/18 01:59 JAY3723 ICU-C16) Document 11/19/18 02:00 IHB0876 (Rec: 11/19/18 02:09 FYU7622 ICU-C16) Document 11/19/18 03:00 CAU8834 (Rec: 11/19/18 04:05 UGZ7964 ICU-C16) Document 11/19/18 04:00 ZUL9037 (Rec: 11/19/18 04:05 WRG8942 ICU-C16) Document 11/19/18 06:00 XPG3364 (Rec: 11/19/18 06:14 KMJ8966 ICU-C10) Document 11/19/18 06:00 LCL9194 (Rec: 11/19/18 06:16 ICK9566 ICU-C16) Document 11/19/18 07:57 NWF2950 (Rec: 11/19/18 07:57 DST4288 ISDEME-M03 ) Document 11/19/18 09:00 SWM9322 (Rec: 11/19/18 11:03 XSU2235 ICU-L03) Document 11/19/18 10:00 VLW1443 (Rec: 11/19/18 12:20 GDH7326 ICU-L03) Document 11/19/18 11:00 ZKK0505 (Rec: 11/19/18 12:22 KJL5503 ICU-L03) Document 11/19/18 12:40 SWG4321 (Rec: 11/19/18 12:49 SGL4829 ICU-L03) Intake and Output Start: 11/19/18 12: 51 Freq: DAILY@0600,1400,2200 Status: Active Protocol: Created 11/19/18 12:51 DQO9291 (Rec: 11/19/18 12:51 ZAV6787 ICU-L03) Document 11/19/18 14:00 JMZ3088 (Rec: 11/19/18 14:10 OOU5564 ICU-L03) Document 11/19/18 21:44 MTV0988 (Rec: 11/19/18 22:00 NSZ8958 SSU-M18) Document 11/19/18 23:31 VSK2806 (Rec: 11/19/18 23:31 JUV6426 SSU-M18) Document 11/20/18 03:20 EYR6795 (Rec: 11/20/18 05:27 OGX3926 SSU-M18) Document 11/20/18 05:13 CFG3308 (Rec: 11/20/18 05:14 RJJ0620 SSU-C10) Document 11/20/18 06:04 RLD1297 (Rec: 11/20/18 06:04 VXK9965 SSU-M18) Document 11/20/18 09:46 XOJ3163 (Rec: 11/20/18 09:46 XGY3784 SSU-C09) Document 11/20/18 14:43 KCF5854 (Rec: 11/20/18 14:44 AGT4453 SSU-C09) Document 11/20/18 18:16 WMX8456 (Rec: 11/20/18 18:18 BLG2892 SSU-M18) Document 11/20/18 22:00 YDQ9536 (Rec: 11/20/18 22:08 OWL2411 PMRU-M07) Document 11/21/18 06:00 YYC7997 (Rec: 11/21/18 06:28 WAW1954 SSU-M07) Document 11/21/18 14:02 OHS3863 (Rec: 11/21/18 14:02 AAM8644 SSU-C04) Document 11/21/18 14:02 POE3884 (Rec: 11/21/18 14:02 NKQ1167 SSU-C04) Document 11/21/18 22:15 FXX3857 (Rec: 11/21/18 22:15 HZA0366 SSU-C10) Document 11/22/18 01:26 LSK3642 (Rec: 11/22/18 01:26 CUR6083 SSU-M18) Document 11/22/18 02:45 LTD1094 (Rec: 11/22/18 02:45 UFK9009 SSU-M18) Document 11/22/18 04:10 HWS8659 (Rec: 11/22/18 05:00 JIM0568 SSU-M18) Document 11/22/18 05:00 PCO4179 (Rec: 11/22/18 07:46 LFD1490 SSU-M07) Document 11/22/18 06:06 HDG2852 (Rec: 11/22/18 06:07 ZDD8496 SSU-M18) Document 11/22/18 13:46 MKF8596 (Rec: 11/22/18 13:47 MLZ4927 SSU-M13) Document 11/22/18 14:42 XTA9208 (Rec: 11/22/18 14:42 QEC0271 SSU-C04) Document 11/22/18 19:00 DNX5082 (Rec: 11/22/18 19:28 ATK1444 SSU-C12) Document 11/22/18 22:54 WED3108 (Rec: 11/22/18 22:54 KPJ0256 SSU-M18) Document 11/23/18 04:54 QRL0916 (Rec: 11/23/18 04:54 NWJ7314 SSU-M07) Document 11/23/18 05:59 NJR7791 (Rec: 11/23/18 05:59 [facility]-M18) - Physical Exam General: No Cyanosis, Yes Anemia, No Jaundice, No Clubbing Lungs and Chest: Yes: Chest Expansion Full, Crackles - left base, Respiratory Distress - tachypnea, Use of Accessory Muscles. No: Chest Expansion Symetrica, Percussion Note Resonant - dull left base, Vessicular Breath Sounds - diminished left base, Wheezes Heart Rate and Rhythm: Tachycardia - irregular Additional Cardiovascular: Yes: Normal Heart Sounds, Heart Murmur. No: Pedal Edema Abdominal Exam: Yes: Soft, Bowel Sounds Present. No: Distention, Abdominal Tenderness - Extremities Cranial Nerves II-XII Intact: Yes Limbs: Abnormal Power - generalized weakness - Neuro Orientation: A/O x3 Psychiatric: Anxious, Depressed Speech: Normal Results - Results Lab Results: Laboratory Results - last 24 hr 11/23/18 11/23/18 11/23/18 05:36 05:36 07:24 INR (Anticoag Therapy) 1.76 H Sodium 138 Potassium TNP 4.3 Chloride 103 Carbon Dioxide 26 Anion Gap 9 BUN 34 H Creatinine 0.81 Est GFR ( Amer) 80.9 Est GFR (Non-Af Amer) 66.9 BUN/Creatinine Ratio 42.0 H Glucose 113 H Calcium 8.8 Assessment - Problem List Assessment: Patient Problems Atrial fibrillation (Acute) Depression (Acute) Fall from slipping on ice (Acute) Hip fracture requiring operative repair (Acute) Hypotension (Acute) Leukocytosis (Acute) Pleural effusion, left (Acute) Tachycardia (Acute) Anticoagulant therapy (Chronic) Collapse of thoracic vertebra due to osteoporosis (Chronic) Creatinine elevation (Chronic) DNR (do not resuscitate) (Chronic) DVT prophylaxis (Chronic) Diastolic CHF (Chronic) Diastolic dysfunction (Chronic) Diverticular disease of colon (Chronic) Essential hypertension (Chronic) Hypercholesterolemia (Chronic) Impaired fasting glycaemia (Chronic) Osteoporosis (Chronic) Pulmonary hypertension (Chronic) Plan: Pleural effusion, left (Acute) She has dyspnea, a mild cough and fatigue. She is afebrile and is not expectorating sputum. She is dull to percussion left base. I will check a CXR. This is either CHF or infection - the latter less likely. I will also add a CRP to this morning labs. Atrial fibrillation (Acute)Tachycardia (Acute) this is faster than before Depression (Acute) She continues to be listless and lacking in motivation Fall from slipping on ice (Acute) Hip fracture requiring operative repair (Acute ) She has no pain. Hypotension (Acute) resolved Leukocytosis (Acute) resolved Anticoagulant therapy (Chronic) ongoing Secondary diagnoses: Collapse of thoracic vertebra due to osteoporosis (Chronic) Creatinine elevation (Chronic) DNR (do not resuscitate) (Chronic) DVT prophylaxis (Chronic) Diastolic CHF (Chronic) Diastolic dysfunction (Chronic) Diverticular disease of colon (Chronic) Essential hypertension (Chronic) Hypercholesterolemia (Chronic) Impaired fasting glycaemia (Chronic) Osteoporosis (Chronic) Pulmonary hypertension (Chronic) I explained the above to the patient. I spoke with her home caregiver who is currently looking after her Je and bought her up to date.
[2018-11-23] MEDS ORDERED: Furosemide IV* 10 MG/ML VIAL (40 MG) IV ONE (08:33)
[2018-11-23] MEDS: Spironolactone TAB* 25 MG PO SCH (08:51)
[2018-11-23] MEDS: Furosemide TAB* 20 MG PO SCH (08:51)
[2018-11-23] MEDS: Enoxaparin(*) 40 MG/0.4 ML SYR SUBCUT SCH (08:52)
[2018-11-23] MEDS: Metoprolol Tartrate TAB* 50 mg PO SCH ×2 (08:52→20:33)
[2018-11-23] MEDS: Docusate CAP* 100 MG PO SCH ×2 (08:52→20:33)
[2018-11-23 11:59] LABS: C Reactive Protein 23.98 mg/L (<8.01)
[2018-11-23] MEDS: Digoxin TAB* 0.125 MG PO SCH (16:44)
--- NOTE | 2018-11-23 16:51 | PN ---
Progress Note - Progress Note Date of Service: 11/23/18 SOAP: Subjective: []Pt seen and examined OOB in chair. Right hip pain is well controlled. Denies CP, dizziness, nausea. She is SOB and being followed by Dr Knapp. She has denied PT this morning, reports of lacking motivation from staff. Objective: []General: NAD RLE: Right hip dressing CDI, no surrounding erythema, thigh mildly edematous though soft. DF/PF intact. DP2+ Calves supple and nontender without erythema, edema or palpable cords Assessment: [] POD #5 Right hip ORIF Plan: Cont PT/OT Awaiting NH transfer/SNF Cont Coumadin for DVT ppx Dressing change by ortho tomorrow due to report of dressing with serosanguinous drainage from nursing, Will give ancef overnight and watch closely. Vital Signs Temp 97.3 F 11/23/18 11:14 Pulse 89 11/23/18 11:14 Resp 17 11/23/18 11:14 BP 93/66 11/23/18 11:14 Pulse Ox 100 11/23/18 11:14 Intake & Output 11/22/18 11/23/18 11/23/18 18:59 06:59 18:59 Intake Total 400 900 320 Output Total 400 100 625 Balance 0 800 -305 Intake: Oral 400 900 320 Output: Urine 400 100 625 Other: Estimated Void Medium # Bowel Movements 1 Laboratory Last Values WBC 10.1 10^3/ul (3.5-10.8) 11/22/18 06:27 RBC 2.92 10^6/ul (4.00-5.40) L 11/22/18 06:27 Hgb 9.7 g/dl (12.0-16.0) L 11/22/18 06:27 Hct 29 % (35-47) L 11/22/18 06:27 MCV 99 fL (80-97) H 11/22/18 06:27 MCH 33 pg (27-31) H 11/22/18 06:27 MCHC 34 g/dl (31-36) 11/22/18 06:27 RDW 20 % (10.5-15) H 11/22/18 06:27 Plt Count 208 10^3/ul (150-450) 11/22/18 06:27 MPV 10.3 fL (7.4-10.4) 11/22/18 06:27 Neut % (Auto) Not Reportable 11/22/18 06:27 Lymph % (Auto) Not Reportable 11/22/18 06:27 Dougherty % (Auto) Not Reportable 11/22/18 06:27 Eos % (Auto) Not Reportable 11/22/18 06:27 Baso % (Auto) Not Reportable 11/22/18 06:27 Absolute Neuts (auto) 6.8 10^3/ul (1.5-7.7) 11/22/18 06:27 Absolute Lymphs (auto) 2.1 10^3/ul (1.0-4.8) 11/22/18 06:27 Absolute Monos (auto) 1.1 10^3/ul (0-0.8) H 11/22/18 06:27 Absolute Eos (auto) 0.1 10^3/ul (0-0.6) 11/22/18 06:27 Absolute Basos (auto) 0.1 10^3/ul (0-0.2) 11/22/18 06:27 Absolute Nucleated RBC Not Reportable 11/22/18 06:27 Immature Gran % 6 % (0-9) 11/22/18 06:27 Neutrophils % 70 % 11/22/18 06:27 Lymphocytes % 17 % 11/22/18 06:27 Reactive Lymphs % 1 % (0-6) 11/22/18 06:27 Monocytes % 4 % 11/22/18 06:27 Eosinophils % 2 % 11/22/18 06:27 Metamyelocytes % 3 % (0-2) H 11/22/18 06:27 Myelocytes % 3 % (0-1) H 11/22/18 06:27 Nucleated RBC % Not Reportable 11/22/18 06:27 Abs Neuts (Manual) 7.7 10^3/ul (1.5-7.7) 11/22/18 06:27 Abs Lymphs (Manual) 1.8 10^3/ul (1.0-4.8) 11/22/18 06:27 Abs Monocytes (Manual) 0.4 10^3/ul (0-0.8) 11/22/18 06:27 Absolute Eos (Manual) 0.2 10^3/ul (0-0.6) 11/22/18 06:27 Nucleated RBCs/100 WBC 9 (0-0) H 11/22/18 06:27 Large Platelets Present 11/20/18 06:43 Normal RBC Morphology Not Reportable 11/22/18 06:27 Polychromasia 2+ 11/22/18 06:27 Hypochromasia 2+ 11/20/18 06:43 Anisocytosis 2+ 11/22/18 06:27 INR (Anticoag Therapy) 1.76 (0.77-1.02) H 11/23/18 05:36 APTT 30.1 seconds (26.0-36.3) 11/17/18 05:42 Sodium 138 mmol/L (135-145) 11/23/18 05:36 Potassium 4.3 mmol/L (3.5-5.0) 11/23/18 07:24 Chloride 103 mmol/L (101-111) 11/23/18 05:36 Carbon Dioxide 26 mmol/L (22-32) 11/23/18 05:36 Anion Gap 9 mmol/L (2-11) 11/23/18 05:36 BUN 34 mg/dL (6-24) H 11/23/18 05:36 Creatinine 0.81 mg/dL (0.51-0.95) 11/23/18 05:36 Est GFR ( Amer) 80.9 (>60) 11/23/18 05:36 Est GFR (Non-Af Amer) 66.9 (>60) 11/23/18 05:36 BUN/Creatinine Ratio 42.0 (8-20) H 11/23/18 05:36 Glucose 113 mg/dL (70-100) H 11/23/18 05:36 POC Glucose (mg/dL) 152 mg/dL (70-100) H 11/19/18 12:25 Calcium 8.8 mg/dL (8.6-10.3) 11/23/18 05:36 Magnesium 1.8 mg/dL (1.9-2.7) L 11/18/18 05:28 Total Bilirubin 1.30 mg/dL (0.2-1.0) H 11/16/18 19:35 AST 16 U/L (13-39) 11/16/18 19:35 ALT 16 U/L (7-52) 11/16/18 19:35 Alkaline Phosphatase 73 U/L (34-104) 11/16/18 19:35 C-Reactive Protein 23.98 mg/L (<8.01) H 11/23/18 05:36 B-Natriuretic Peptide 227 pg/mL (<=100) H 11/22/18 06:27 Total Protein 5.7 g/dL (6.4-8.9) L 11/16/18 19:35 Albumin 3.9 g/dL (3.2-5.2) 11/16/18 19:35 Globulin 1.8 g/dL (2-4) L 11/16/18 19:35 Albumin/Globulin Ratio 2.2 (1-3) 11/16/18 19:35 Urine Color Yellow 11/16/18 17:25 Urine Appearance Cloudy 11/16/18 17:25 Urine pH 5.0 (5-9) 11/16/18 17:25 Ur Specific [place] 1.025 (1.010-1.030) 11/16/18 17:25 Urine Protein Negative (Negative) 11/16/18 17:25 Urine Ketones Trace (Negative) A 11/16/18 17:25 Urine Blood 3+ (Negative) A 11/16/18 17:25 Urine Nitrate Negative (Negative) 11/16/18 17:25 Urine Bilirubin Negative (Negative) 11/16/18 17:25 Urine Urobilinogen Negative (Negative) 11/16/18 17:25 Ur Leukocyte Esterase Negative (Negative) 11/16/18 17:25 Urine WBC (Auto) Trace(0-5/hpf) (Absent) 11/16/18 17:25 Urine RBC (Auto) 3+(>10/hpf) (Absent) A 11/16/18 17:25 Ur Squamous Epith Cells Present (Absent) A 11/16/18 17:25 Urine Bacteria Absent (Absent) 11/16/18 17:25 Urine Glucose Negative (Negative) 11/16/18 17:25 Blood Type A Positive 11/16/18 19:35 Antibody Screen Negative 11/16/18 19:35 Crossmatch See Detail 11/16/18 19:35
[2018-11-23] MEDS ORDERED: Warfarin TAB(*) 3 MG PO ONE (17:00)
[2018-11-23] MEDS: ceFAZolin 1 GM ADVAN(*) 1 GM in NS 0.9% 50 ML* 50 ML IVPB SCH (17:37)
[2018-11-23] MEDS: Melatonin 3 MG TAB PO PRN (22:59)
[2018-11-24] MEDS: ceFAZolin 1 GM ADVAN(*) 1 GM in NS 0.9% 50 ML* 50 ML IVPB SCH ×3 (01:10→17:57)
[2018-11-24] MEDS: Acetaminophen TAB* 325 MG PO SCH ×5 (04:02→22:42)
[2018-11-24 06:40] LABS: INR 1.78 (0.77-1.02)
[2018-11-24 06:46] LABS: BUN/Creatinine Ratio 40.2 (8-20); C Reactive Protein 35.78 mg/L (<8.01); EGFR African American 69.9 (>60); EGFR Non-African American 57.7 (>60); Potassium 3.9 mmol/L (3.5-5.0)
[2018-11-24 06:47] LABS: Digoxin 1.2 ng/ml (0.8-2.0)
[2018-11-24] MEDS ORDERED: Furosemide IV* 10 MG/ML VIAL (40 MG) IV ONE (08:41)
[2018-11-24] MEDS ORDERED: Mirtazapine TAB* 15 MG PO PRN (08:43)
--- NOTE | 2018-11-24 08:52 | PN ---
Subjective - Subjective Reason for Note: Progress Note History: She continues to have dyspnea. I note that she doesn't have a productive cough , chest pain or fever. Depression - she admits she lacks motivation, her sleep pattern is reversed - sleeps easily during the day, but not at night. Active Problems: Active Problems Atelectasis of left lung (Acute) J98.11 Atrial fibrillation (Acute) I48.91 - Admitted to tele - Holding Coumadin Depression (Acute) F32.9 Fall from slipping on ice (Acute) W00.9XXA Hip fracture requiring operative repair (Acute) S72.009A Leukocytosis (Acute) D72.829 - WBC is 17.1 - I suspected this is 2/2 to fall - CBC to be rechecked tomorrow Anticoagulant therapy (Chronic) Z79.01 - INR 1.52 - Hold Warfarin - 2.5 mg Vitamin K ordered. 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 - Reassess as soon as possible. - SCDs ordered Diastolic CHF (Chronic) I50.30 - Last Echo in 2017, therefore, repeat echo for the morning. - Patient is established with [facility]. Dr Carmona called made aware of patient. 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 Essential hypertension (Chronic) I10 - Cont metoprolol - Hold Lasix and Spironolactone Hypercholesterolemia (Chronic) E78.0 - Defer to primary care Impaired fasting glycaemia (Chronic) R73.01 - Finger sticks ordered, but no coverage Osteoporosis (Chronic) M81.0 Pulmonary hypertension (Chronic) I27.2 Current Medications: Current Medications Acetaminophen (Tylenol Tab*) 650 mg PO Q6H [facility] Last Admin: 11/24/18 04:23 Dose: 650 mg Digoxin (Lanoxin Tab*) 0.125 mg PO 1700 [facility] Last Admin: 11/23/18 16:44 Dose: 0.125 mg Docusate Sodium (Colace Cap*) 100 mg PO BID [facility] Last Admin: 11/23/18 20:33 Dose: Not Given Enoxaparin Sodium (Lovenox(*)) 40 mg SUBCUT Q24H [facility] Last Admin: 11/23/18 08:52 Dose: 40 mg Furosemide (Lasix Tab*) 20 mg PO DAILY [facility] Last Admin: 11/23/18 08:51 Dose: 20 mg Furosemide (Lasix Iv*) 40 mg IV ONCE ONE Stop: 11/24/18 08:42 Cefazolin Sodium 1 gm/ Sodium (Chloride) 50 mls @ 200 mls/hr IVPB Q8H [facility] Last Admin: 11/24/18 01:10 Dose: 200 mls/hr Melatonin (Melatonin) 3 mg PO BEDTIME PRN PRN Reason: SLEEP Last Admin: 11/23/18 22:59 Dose: 3 mg Metoprolol Tartrate (Lopressor Tab*) 50 mg PO BID [facility] Last Admin: 11/23/18 20:33 Dose: Not Given Ondansetron HCl (Zofran Inj*) 4 mg IV Q6H PRN PRN Reason: NAUSEA Pharmacy Profile Note (Coumadin Per Pharmacy*) 0 note FOLLOW UP .PER PHARMACY PROTOC [facility]; Protocol Spironolactone (Aldactone Tab*) 25 mg PO DAILY [facility] Last Admin: 11/23/18 08:51 Dose: 25 mg Home Medications: Home Medications Medication Instructions Recorded Confirmed Type Furosemide TAB* [Lasix TAB*] 40 mg PO DAILY 90 Days tab 02/25/17 11/16/18 Rx Metoprolol Tartrate TAB* 50 mg PO BID #180 tab 02/25/17 11/16/18 Rx [Lopressor TAB*] Spironolactone TAB* [Aldactone TAB 25 mg PO DAILY #90 tab 02/25/17 11/16/18 Rx 25 MG*] Cholecalciferol TAB* [Vitamin D 400 unit PO DAILY 11/16/18 11/16/18 History TAB*] Glucosa Bardales 2Kcl/Chondroitin Bardales 1 cap PO BID 11/16/18 11/16/18 History [Glucosamine & Chondroitin Cap] Warfarin TAB(*) [Coumadin TAB(*)] 2.5 mg PO DAILY 11/16/18 11/16/18 History Allergies: Allergies Allergy/AdvReac Type Severity Reaction Status Date / Time No Known Allergies Allergy Verified 11/16/18 14:32 Objective - Vital Signs Vital Signs: Vital Signs 11/23/18 11/23/18 11/23/18 11:14 16:10 19:18 Temperature 97.3 F 97.9 F Pulse Rate 89 109 Respiratory 17 24 24 Rate Blood Pressure 93/66 130/95 (mmHg) O2 Sat by Pulse 100 100 Oximetry 11/23/18 11/23/18 11/24/18 20:04 23:31 03:29 Temperature 97.7 F 98.2 F 98.4 F Pulse Rate 99 105 101 Respiratory 18 17 16 Rate Blood Pressure 105/69 108/79 124/60 (mmHg) O2 Sat by Pulse 100 100 100 Oximetry - Intake and Output Intake and Output: Intake & Output 11/21/18 11/22/18 11/23/18 11/24/18 11:59 11:59 11:59 11:59 Intake Total 127 530 8146 1060 Output Total 700 1050 875 750 Balance 30 -720 745 310 Intake: IVPB 100 ABX - CEFAZOLIN 100 Oral 558 536 0626 960 Output: Urine 550 1050 875 750 Colostomy 150 Other: Estimated Void Medium Medium Medium # Bowel Movements 1 0 # Voids 1 ADLs: Meal Record Start: 11/16/18 22: 22 Freq: DAILY@0900,1400,1800 Status: Complete Protocol: Created 11/16/18 22:22 System (Rec: 11/16/18 22:22 System TELE-C15) Document 11/17/18 13:59 [id number] (Rec: 11/17/18 14:00 JWW1480 TELE-C11) Document 11/17/18 17:22 CGO6964 (Rec: 11/17/18 17:22 BFH2989 TELE-M06) Document 11/18/18 09:00 TEF1057 (Rec: 11/18/18 12:47 UAT6914 TELE-C10) Document 11/18/18 14:00 VNF4228 (Rec: 11/18/18 15:20 ZYK7644 TELE-C08) Document 11/18/18 18:00 NZK7904 (Rec: 11/18/18 18:53 WNF0904 TELE-C01) ADLs: Meal Record Start: 11/18/18 21: 12 Freq: 09,13,18 Status: Complete Protocol: Created 11/18/18 21:12 ACS5767 (Rec: 11/18/18 21:12 IRR8911 ICU-C12) Document 11/19/18 09:00 SPM6481 (Rec: 11/19/18 12:04 DSS1693 ICU-L03) ADLs: Meal Record Start: 11/19/18 12: 51 Freq: Status: Active Protocol: Created 11/19/18 12:51 IPX3594 (Rec: 11/19/18 12:51 ADQ4297 ICU-L03) Document 11/19/18 13:00 IWS0811 (Rec: 11/19/18 14:17 KVS3942 ICU-L03) Document 11/20/18 09:46 KHD5927 (Rec: 11/20/18 09:46 RKH3929 SSU-C09) Document 11/21/18 10:42 MKS5420 (Rec: 11/21/18 12:42 KGK1824 SSU-C04) Document 11/21/18 14:01 KJR2542 (Rec: 11/21/18 14:01 ZOO4311 SSU-C04) Document 11/21/18 18:33 MRK1990 (Rec: 11/21/18 18:34 TPP6123 SSU-C10) Document 11/23/18 09:59 WQF6621 (Rec: 11/23/18 09:59 CWY4961 SSU-C03) Intake and Output Start: 11/16/18 14: 32 Freq: Status: Complete Protocol: Created 11/16/18 14:32 System (Rec: 11/16/18 14:32 System EDRM-C07) Intake and Output Start: 11/16/18 22: 22 Freq: DAILY@0600,1400,2200 Status: Complete Protocol: Created 11/16/18 22:22 System (Rec: 11/16/18 22:22 System TELE-C15) Document 11/17/18 06:00 FVP3071 (Rec: 11/17/18 06:01 TMI3561 TELE-C11) Document 11/17/18 14:00 CKF8832 (Rec: 11/17/18 15:34 BUP6011 TELE-C10) Document 11/17/18 22:00 QMM9274 (Rec: 11/17/18 22:22 TFX3847 TELE-C01) Document 11/18/18 06:00 CCI9979 (Rec: 11/18/18 07:36 ZDG2805 TELE-C09) Document 11/18/18 14:00 JQR2986 (Rec: 11/18/18 15:20 SDY7998 TELE-C08) Intake and Output Start: 11/18/18 21: 12 Freq: Q1HR Status: Complete Protocol: Created 11/18/18 21:12 GTE4926 (Rec: 11/18/18 21:12 CWE5354 ICU-C12) Document 11/18/18 23:56 CHO6005 (Rec: 11/18/18 23:56 SSU1756 ICU-C10) Document 11/19/18 00:00 MBZ1130 (Rec: 11/19/18 00:28 RAC3326 ICU-C16) Document 11/19/18 01:00 KIY6134 (Rec: 11/19/18 01:59 AAU3480 ICU-C16) Document 11/19/18 02:00 YZA2648 (Rec: 11/19/18 02:09 NKI4769 ICU-C16) Document 11/19/18 03:00 ECN8192 (Rec: 11/19/18 04:05 VCV4178 ICU-C16) Document 11/19/18 04:00 JET5587 (Rec: 11/19/18 04:05 KEZ7977 ICU-C16) Document 11/19/18 06:00 DKD5443 (Rec: 11/19/18 06:14 MMW3215 ICU-C10) Document 11/19/18 06:00 QEK3970 (Rec: 11/19/18 06:16 GRQ7316 ICU-C16) Document 11/19/18 07:57 XNJ9850 (Rec: 11/19/18 07:57 FFN5920 ISDEMO-M03 ) Document 11/19/18 09:00 UNX2797 (Rec: 11/19/18 11:03 CVD1424 ICU-L03) Document 11/19/18 10:00 MVW4376 (Rec: 11/19/18 12:20 ZZD8252 ICU-L03) Document 11/19/18 11:00 ALA7986 (Rec: 11/19/18 12:22 GAW0166 ICU-L03) Document 11/19/18 12:40 NAF0876 (Rec: 11/19/18 12:49 VRE9996 ICU-L03) Intake and Output Start: 11/19/18 12: 51 Freq: DAILY@0600,1400,2200 Status: Active Protocol: Created 11/19/18 12:51 IBU1413 (Rec: 11/19/18 12:51 KMT4129 ICU-L03) Document 11/19/18 14:00 YHU4774 (Rec: 11/19/18 14:10 JQU6808 ICU-L03) Document 11/19/18 21:44 VNV5707 (Rec: 11/19/18 22:00 YWR9619 SSU-M18) Document 11/19/18 23:31 QRG4583 (Rec: 11/19/18 23:31 JIU1591 SSU-M18) Document 11/20/18 03:20 QTF1924 (Rec: 11/20/18 05:27 UGD2825 SSU-M18) Document 11/20/18 05:13 VNX8055 (Rec: 11/20/18 05:14 XJO2654 SSU-C10) Document 11/20/18 06:04 RWX7134 (Rec: 11/20/18 06:04 BDF5650 SSU-M18) Document 11/20/18 09:46 XIF5863 (Rec: 11/20/18 09:46 ZLB9767 SSU-C09) Document 11/20/18 14:43 WDX7890 (Rec: 11/20/18 14:44 ZPY3843 SSU-C09) Document 11/20/18 18:16 VUN4764 (Rec: 11/20/18 18:18 IYQ2793 SSU-M18) Document 11/20/18 22:00 DYL1428 (Rec: 11/20/18 22:08 RQX3957 [facility]-M07) Document 11/21/18 06:00 AHD1560 (Rec: 11/21/18 06:28 DES0814 SSU-M07) Document 11/21/18 14:02 PNZ2939 (Rec: 11/21/18 14:02 UOS2335 SSU-C04) Document 11/21/18 14:02 LXK4296 (Rec: 11/21/18 14:02 JGA7744 SSU-C04) Document 11/21/18 22:15 BDA8350 (Rec: 11/21/18 22:15 UFO0370 SSU-C10) Document 11/22/18 01:26 XQK9169 (Rec: 11/22/18 01:26 CBJ9953 SSU-M18) Document 11/22/18 02:45 ITN7564 (Rec: 11/22/18 02:45 EES8353 SSU-M18) Document 11/22/18 04:10 PYA9440 (Rec: 11/22/18 05:00 WOH2376 SSU-M18) Document 11/22/18 05:00 XPR1592 (Rec: 11/22/18 07:46 WWC3654 SSU-M07) Document 11/22/18 06:06 GQH7623 (Rec: 11/22/18 06:07 WSY9126 SSU-M18) Document 11/22/18 13:46 KAE7467 (Rec: 11/22/18 13:47 FBT7501 SSU-M13) Document 11/22/18 14:42 PZI7364 (Rec: 11/22/18 14:42 ELF8969 SSU-C04) Document 11/22/18 19:00 JAZ0999 (Rec: 11/22/18 19:28 HKW6230 SSU-C12) Document 11/22/18 22:54 WEJ3481 (Rec: 11/22/18 22:54 PFN4609 SSU-M18) Document 11/23/18 04:54 XIW7909 (Rec: 11/23/18 04:54 SXA7532 SSU-M07) Document 11/23/18 05:59 NXU0249 (Rec: 11/23/18 05:59 WGO3922 SSU-M18) Document 11/23/18 09:22 NUG1240 (Rec: 11/23/18 09:23 DLB8660 SSU-C01) Document 11/23/18 11:07 MHR3368 (Rec: 11/23/18 11:07 XAD5745 SSU-C01) Document 11/23/18 14:00 QPZ2517 (Rec: 11/23/18 15:08 GDK4244 SSU-C08) Document 11/23/18 22:06 WIL0036 (Rec: 11/23/18 22:06 VRX3268 SSU-C19) Document 11/24/18 05:16 FVX1056 (Rec: 11/24/18 05:16 TWU6595 SSU-M17) Document 11/24/18 05:30 SMO3130 (Rec: 11/24/18 07:13 MLU8412 SSU-M06) Document 11/24/18 08:14 JMY9200 (Rec: 11/24/18 08:14 WGD9916 U-C04) - Physical Exam General: No Cyanosis, Yes Anemia, No Jaundice, No Clubbing Lungs and Chest: Yes: Chest Expansion Full, Chest Expansion Symetrica, Crackles - left base, Respiratory Distress. No: Percussion Note Resonant - dull left base, Vessicular Breath Sounds - diminished left base, Wheezes, Use of Accessory Muscles Heart Rate and Rhythm: Irregular Additional Cardiovascular: Yes: Normal Heart Sounds. No: Heart Murmur, Pedal Edema Abdominal Exam: Yes: Soft. No: Distention, Abdominal Mass, Abdominal Tenderness - Neuro Orientation: A/O x3 Psychiatric: Depressed Speech: Normal Results - Results Lab Results: Laboratory Results - last 24 hr 11/23/18 11/24/18 11/24/18 05:36 05:22 05:22 INR (Anticoag Therapy) 1.78 H Sodium 138 138 Potassium TNP 3.9 Chloride 103 101 Carbon Dioxide 26 31 Anion Gap 9 6 BUN 34 H 37 H Creatinine 0.81 0.92 Est GFR ( Amer) 80.9 69.9 Est GFR (Non-Af Amer) 66.9 57.7 BUN/Creatinine Ratio 42.0 H 40.2 H Glucose 113 H 124 H Calcium 8.8 9.0 C-Reactive Protein 23.98 H 35.78 H Digoxin 1.2 Radiology Results: Patient Name: CLARENCE PRASAD Medical Record#: [id number] Ordering Physician: Baldemar Knapp MD Acct.#: [id number] : 1930 Age: 88 Sex: F Location: SURGICAL STAY UNIT Exam Date: 11/23/18 1058 ADM Status: ADM IN Order Information: CT CHEST W/O Accession Number: [id number] CPT: 23569 INDICATION: Fall. Assess for pneumonia versus atelectasis. LEFT pleural effusion. COMPARISON: November 23, 2018 chest radiograph. February 23, [address] TECHNIQUE: Multidetector CT images were obtained from the lung apices to the upper abdomen. Evaluation of the viscera is limited without IV contrast. REPORT: Moderate elevation of the LEFT hemidiaphragm and small nonloculated water density LEFT pleural effusion and trace RIGHT pleural effusion. Bibasilar atelectasis LEFT greater than RIGHT ventricular level to disproportionate LEFT hemithorax volume loss resulting from diaphragmatic elevation and pleural fluid. No suspicious focal pulmonary lesions. Negative for pneumothorax. Negative for thoracic lymphadenopathy. Cardiomegaly. Negative for pericardial effusion. Coronary artery calcifications. Normal diameter thoracic aorta with atherosclerotic calcification and tortuous descending segment. 1.3 cm low density chronic LEFT adrenal nodule consistent with a benign lipid rich adenoma. T8, T11, and T12 osteoporotic compression fractures of the thoracic spine. The T8 fracture is new compared with the 2017 exam without compelling gross acute features. There is mild progression of the T11 fracture compared with the 2017 exam. IMPRESSION: #. LEFT greater than RIGHT lung base atelectasis is favored over pneumonia given volume loss resulting from LEFT diaphragmatic elevation, small pleural effusions, and thoracic spine compression fractures. No definitive acute thoracic spine fracture evident. <Electronically signed by Jose Martin Thompson MD in [place]> 11/23/18 1246 Dictated By: Jose Martin Thompson MD Dictated Date/Time: 11/23/18 1246 Transcribed Date/Time: 11/23/18 1239 Copy to: CC:Baldemar Knapp MD; Madhavi Marshall DO Imaging - [facility] Imaging - [facility] Imaging - [facility] This report is only to be considered final once signed by the Provider(s) as displayed in the "<Electronically Signed by >" field (s). Absence of a signature indicates the report is in a draft status and still needs to be finalized. In the event this document was created by someone other than the signing Provider, the individual initiating the document will be listed in the "Entered by:" or "Dictated by:" epstein. 1 of 2 Assessment - Problem List Assessment: Patient Problems Atelectasis of left lung (Acute) Atrial fibrillation (Acute) Depression (Acute) Fall from slipping on ice (Acute) Hip fracture requiring operative repair (Acute) Leukocytosis (Acute) Anticoagulant therapy (Chronic) Chronically elevated hemidiaphragm (Chronic) Collapse of thoracic vertebra due to osteoporosis (Chronic) Creatinine elevation (Chronic) DNR (do not resuscitate) (Chronic) DVT prophylaxis (Chronic) Diastolic CHF (Chronic) Diastolic dysfunction (Chronic) Diverticular disease of colon (Chronic) Essential hypertension (Chronic) Hypercholesterolemia (Chronic) Impaired fasting glycaemia (Chronic) Osteoporosis (Chronic) Pulmonary hypertension (Chronic) Plan: Atelectasis of left lung (Acute) Chronically elevated hemidiaphragm (Chronic) She continues to have dyspnea. The CT scan of her chest suggests left lower lobe atelectasis over pneumonia. I note her CRP is slightly elevated. I will obtain RT consult and incentive spirometry Diastolic CHF (Chronic) She has a component of CHF to her dyspnea - i will give her another dose of furosemide IV Atrial fibrillation (Acute) Ongoing Depression (Acute) I am increasing her dose of mirtazepine to 15 mg qhs Fall from slipping on ice (Acute)Hip fracture requiring operative repair (Acute ) She is not motivated to have PT/rehabilitation - likely due to depression Leukocytosis (Acute) resolved - recheck tomorrow. Anticoagulant therapy (Chronic) Secondary diagnosis Collapse of thoracic vertebra due to osteoporosis (Chronic) Creatinine elevation (Chronic) DNR (do not resuscitate) (Chronic) DVT prophylaxis (Chronic) Diastolic dysfunction (Chronic) Diverticular disease of colon (Chronic) Essential hypertension (Chronic) Hypercholesterolemia (Chronic) Impaired fasting glycaemia (Chronic) Osteoporosis (Chronic) Pulmonary hypertension (Chronic) She is at high risk of pneumonia at present owing to her left atelectasis and prolonged bed rest. She also has some CHF. I will treat these aggressively today. I have spoken to the discharge planners re: disposition.
[2018-11-24] MEDS: Enoxaparin(*) 40 MG/0.4 ML SYR SUBCUT SCH (08:54)
[2018-11-24] MEDS: Metoprolol Tartrate TAB* 50 mg PO SCH ×2 (08:54→21:29)
[2018-11-24] MEDS: Furosemide TAB* 20 MG PO SCH (08:54)
[2018-11-24] MEDS: Spironolactone TAB* 25 MG PO SCH (08:54)
[2018-11-24] MEDS: Docusate CAP* 100 MG PO SCH ×2 (08:54→21:29)
[2018-11-24] MEDS: Digoxin TAB* 0.125 MG PO SCH (16:39)
--- NOTE | 2018-11-24 16:46 | PN ---
Progress Note - Progress Note Date of Service: 11/24/18 SOAP: Subjective: []Pt seen nad examined at bedside. Denies RLE pain. Denies CP, dizziness, nausea. Dyspnea being managed by Dr Knapp Objective: []General: NAD RLE: Right hip dressing changed, moderate serosanguinous drainage on the dressing, no active drainage, no purulence. Incision with well approximated wound edges, no surrounding erythema, thigh mildly edematous though soft. DF/PF intact. DP2+. Sensation intact to light touch distally. Calves supple and nontender without erythema, edema or palpable cords Assessment: [] POD #6 Right hip ORIF Plan: Cont PT/OT Awaiting NH transfer/SNF Cont Coumadin for DVT ppx Continue Ancef for now, will follow incision/ drainage. Nursing to repeat HR to ensure not remaining elevated, one elevated HR of 117 at time of activity Vital Signs Temp 97.6 F 11/24/18 15:57 Pulse 117 11/24/18 16:39 Resp 18 11/24/18 15:57 BP 100/68 11/24/18 15:57 Pulse Ox 100 11/24/18 15:57 Intake & Output 11/23/18 11/24/18 11/24/18 18:59 06:59 18:59 Intake Total 320 1060 50 Output Total 218 063 8576 Balance -305 760 -1000 Intake: IVPB 100 ABX - CEFAZOLIN 100 Oral 320 960 50 Output: Urine 218 692 1662 Other: Estimated Void Medium # Bowel Movements 1 0 Laboratory Last Values WBC 10.1 10^3/ul (3.5-10.8) 11/22/18 06:27 RBC 2.92 10^6/ul (4.00-5.40) L 11/22/18 06:27 Hgb 9.7 g/dl (12.0-16.0) L 11/22/18 06:27 Hct 29 % (35-47) L 11/22/18 06:27 MCV 99 fL (80-97) H 11/22/18 06:27 MCH 33 pg (27-31) H 11/22/18 06:27 MCHC 34 g/dl (31-36) 11/22/18 06:27 RDW 20 % (10.5-15) H 11/22/18 06:27 Plt Count 208 10^3/ul (150-450) 11/22/18 06:27 MPV 10.3 fL (7.4-10.4) 11/22/18 06:27 Neut % (Auto) Not Reportable 11/22/18 06:27 Lymph % (Auto) Not Reportable 11/22/18 06:27 [place] % (Auto) Not Reportable 11/22/18 06:27 Eos % (Auto) Not Reportable 11/22/18 06:27 Baso % (Auto) Not Reportable 11/22/18 06:27 Absolute Neuts (auto) 6.8 10^3/ul (1.5-7.7) 11/22/18 06:27 Absolute Lymphs (auto) 2.1 10^3/ul (1.0-4.8) 11/22/18 06:27 Absolute Monos (auto) 1.1 10^3/ul (0-0.8) H 11/22/18 06:27 Absolute Eos (auto) 0.1 10^3/ul (0-0.6) 11/22/18 06:27 Absolute Basos (auto) 0.1 10^3/ul (0-0.2) 11/22/18 06:27 Absolute Nucleated RBC Not Reportable 11/22/18 06:27 Immature Gran % 6 % (0-9) 11/22/18 06:27 Neutrophils % 70 % 11/22/18 06:27 Lymphocytes % 17 % 11/22/18 06:27 Reactive Lymphs % 1 % (0-6) 11/22/18 06:27 Monocytes % 4 % 11/22/18 06:27 Eosinophils % 2 % 11/22/18 06:27 Metamyelocytes % 3 % (0-2) H 11/22/18 06:27 Myelocytes % 3 % (0-1) H 11/22/18 06:27 Nucleated RBC % Not Reportable 11/22/18 06:27 Abs Neuts (Manual) 7.7 10^3/ul (1.5-7.7) 11/22/18 06:27 Abs Lymphs (Manual) 1.8 10^3/ul (1.0-4.8) 11/22/18 06:27 Abs Monocytes (Manual) 0.4 10^3/ul (0-0.8) 11/22/18 06:27 Absolute Eos (Manual) 0.2 10^3/ul (0-0.6) 11/22/18 06:27 Nucleated RBCs/100 WBC 9 (0-0) H 11/22/18 06:27 Large Platelets Present 11/20/18 06:43 Normal RBC Morphology Not Reportable 11/22/18 06:27 Polychromasia 2+ 11/22/18 06:27 Hypochromasia 2+ 11/20/18 06:43 Anisocytosis 2+ 11/22/18 06:27 INR (Anticoag Therapy) 1.78 (0.77-1.02) H 11/24/18 05:22 APTT 30.1 seconds (26.0-36.3) 11/17/18 05:42 Sodium 138 mmol/L (135-145) 11/24/18 05:22 Potassium 3.9 mmol/L (3.5-5.0) 11/24/18 05:22 Chloride 101 mmol/L (101-111) 11/24/18 05:22 Carbon Dioxide 31 mmol/L (22-32) 11/24/18 05:22 Anion Gap 6 mmol/L (2-11) 11/24/18 05:22 BUN 37 mg/dL (6-24) H 11/24/18 05:22 Creatinine 0.92 mg/dL (0.51-0.95) 11/24/18 05:22 Est GFR ( Amer) 69.9 (>60) 11/24/18 05:22 Est GFR (Non-Af Amer) 57.7 (>60) 11/24/18 05:22 BUN/Creatinine Ratio 40.2 (8-20) H 11/24/18 05:22 Glucose 124 mg/dL (70-100) H 11/24/18 05:22 POC Glucose (mg/dL) 152 mg/dL (70-100) H 11/19/18 12:25 Calcium 9.0 mg/dL (8.6-10.3) 11/24/18 05:22 Magnesium 1.8 mg/dL (1.9-2.7) L 11/18/18 05:28 Total Bilirubin 1.30 mg/dL (0.2-1.0) H 11/16/18 19:35 AST 16 U/L (13-39) 11/16/18 19:35 ALT 16 U/L (7-52) 11/16/18 19:35 Alkaline Phosphatase 73 U/L (34-104) 11/16/18 19:35 C-Reactive Protein 35.78 mg/L (<8.01) H 11/24/18 05:22 B-Natriuretic Peptide 227 pg/mL (<=100) H 11/22/18 06:27 Total Protein 5.7 g/dL (6.4-8.9) L 11/16/18 19:35 Albumin 3.9 g/dL (3.2-5.2) 11/16/18 19:35 Globulin 1.8 g/dL (2-4) L 11/16/18 19:35 Albumin/Globulin Ratio 2.2 (1-3) 11/16/18 19:35 Urine Color Yellow 11/16/18 17:25 Urine Appearance Cloudy 11/16/18 17:25 Urine pH 5.0 (5-9) 11/16/18 17:25 Ur Specific [place] 1.025 (1.010-1.030) 11/16/18 17:25 Urine Protein Negative (Negative) 11/16/18 17:25 Urine Ketones Trace (Negative) A 11/16/18 17:25 Urine Blood 3+ (Negative) A 11/16/18 17:25 Urine Nitrate Negative (Negative) 11/16/18 17:25 Urine Bilirubin Negative (Negative) 11/16/18 17:25 Urine Urobilinogen Negative (Negative) 11/16/18 17:25 Ur Leukocyte Esterase Negative (Negative) 11/16/18 17:25 Urine WBC (Auto) Trace(0-5/hpf) (Absent) 11/16/18 17:25 Urine RBC (Auto) 3+(>10/hpf) (Absent) A 11/16/18 17:25 Ur Squamous Epith Cells Present (Absent) A 11/16/18 17:25 Urine Bacteria Absent (Absent) 11/16/18 17:25 Urine Glucose Negative (Negative) 11/16/18 17:25 Digoxin 1.2 ng/ml (0.8-2.0) 11/24/18 05:22 Blood Type A Positive 11/16/18 19:35 Antibody Screen Negative 11/16/18 19:35 Crossmatch See Detail 11/16/18 19:35
[2018-11-24] MEDS ORDERED: Warfarin TAB(*) 3 MG PO ONE (17:00)
[2018-11-24] MEDS: Melatonin 3 MG TAB PO PRN (22:43)
[2018-11-25] MEDS: ceFAZolin 1 GM ADVAN(*) 1 GM in NS 0.9% 50 ML* 50 ML IVPB SCH ×2 (02:40→10:26)
[2018-11-25] MEDS: Acetaminophen TAB* 325 MG PO SCH ×2 (05:35→10:24)
[2018-11-25 07:23] LABS: Hematocrit 25 % (35-47); Hemoglobin 8.1 g/dl (12.0-16.0); Mean Corpuscular HGB Conc 33 g/dl (31-36); Mean Corpuscular Hemoglobin 33 pg (27-31); Mean Corpuscular Volume 101 fL (80-97); Platelet Count 217 10^3/ul (150-450); Red Blood Count 2.45 10^6/ul (4.00-5.40); Red Cell Distribution Width 22 % (10.5-15)
[2018-11-25 07:34] LABS: INR 2.28 (0.77-1.02)
[2018-11-25 07:40] LABS: BUN/Creatinine Ratio 40.7 (8-20); Calcium 8.9 mg/dL (8.6-10.3); EGFR African American 70.8 (>60); EGFR Non-African American 58.5 (>60); Potassium 3.7 mmol/L (3.5-5.0)
[2018-11-25 08:18] LABS: Immature Granulocytes 2 % (0-9); Lymphocytes % 13 %; Metamyelocytes % 2 % (0-2); Monocytes % 4 %; Neutrophil % 80 %; Nucleated Red Blood Cells/100 9 (0-0); Polychromasia 2+; Variant Lymph % 1 % (0-6)
[2018-11-25 08:25] LABS: ABS Neutrophils 7.38 10^3/ul (1.5-7.7)
[2018-11-25 09:49] VITALS: BP 109/68
[2018-11-25] MEDS: Metoprolol Tartrate TAB* 50 mg PO SCH (10:09)
[2018-11-25] MEDS: Docusate CAP* 100 MG PO SCH (10:24)
[2018-11-25] MEDS: Furosemide TAB* 20 MG PO SCH (10:24)
[2018-11-25] MEDS: Enoxaparin(*) 40 MG/0.4 ML SYR SUBCUT SCH (10:25)
[2018-11-25] MEDS: Spironolactone TAB* 25 MG PO SCH (10:25)
--- NOTE | 2018-11-25 11:35 | TRS ---
CC: Dr. Carrasquillo; [facility]. * TRANSFER SUMMARY: TRANSFERRED TO: [facility]. DATE OF ADMISSION: 11/16/18 DATE OF DISCHARGE: 11/25/18 DISCHARGE DIAGNOSIS: Fall on ice resulting in an intertrochanteric fracture of the right hip without other significant injuries. SURGICAL PROCEDURE: On 11/18/18, open reduction internal fixation of right hip with placement of intramedullary nail. COMORBIDITIES: 1. Depression, anxiety, and bereavement. 2. Anemia. 3. Atelectasis, left lower lobe. 4. Mild volume overload. SECONDARY DIAGNOSES: 1. Osteoporosis. 2. Chronic anticoagulation therapy with warfarin. 3. Chronically elevated left hemidiaphragm. 4. History of vertical compression fracture, thoracic vertebra. 5. Diastolic congestive cardiac failure. 6. Essential hypertension. 7. Diverticulosis. 8. Hypercholesterolemia. 9. Impaired fasting glucose. 10. Pulmonary hypertension. HISTORY: Charity Roach is an 88-year-old white female. Her presentation is documented in the admitting history and physical of Jethro Mckeon MD. and also in Dr. Miracle Huitron's useful consultation note for orthopedics. In short, she was going to the dentist, slipped on ice, and fell on her right side sustaining a fracture of her right hip. She likely hit her head and stressed her neck and her back. PHYSICAL EXAMINATION AT ADMISSION: She was not describing any pain. She had typical findings for a fractured right hip which included shortening of the leg , restricted ROM, she also had some tenderness of the right shoulder. Cardiovascular System: She had normal heart sounds. Pulses were intact. Respiratory System: Breath sounds were present. DIAGNOSTIC STUDIES/LAB DATA: Initial investigations: CBC, white count 17.1, hemoglobin 11.8, hematocrit 36, platelets 208. Chemistry: Sodium 138, potassium 4.7, chloride 102, bicarbonate 28, BUN 34, creatinine 1.02. Ngoc Heredia admitted the patient for the hospitalist service, there were no additional findings. Radiology: Brain CT was unremarkable. Cervical spine CT unremarkable. Hip x- ray showed comminuted angulated intertrochanteric fracture of the right femur and osteopenia. Shoulder x-ray, there is a linear density in the radial and humeral head concerning for nondisplaced fractures. Initial chest x-ray, elevation of left hemidiaphragm, cardiomegaly, evidence of COPD. A 12-lead EKG at presentation, atrial fibrillation rate 95, QRST 85, QTc 414, QRS 75. Transthoracic echocardiogram, hypodynamic left ventricle, ejection fraction 60% to 65%, left atrium severely dilated, moderate to severe mitral regurgitation, moderate to severe tricuspid regurgitation, no pulmonary hypertension noted. CONSULTATION: She was seen in consultation by Dr. Adarsh Carmona and subsequently by Dr. Anu Marrero for cardiology. Dr. Carmona performed a risk assessment for her heart during surgery. He felt she was stable for the surgery and no extra medications warranted. PREOPERATIVE COURSE: She developed tachycardia prior to the surgery which was delayed and as the patient was anxious, I treated with this with beta-blockade and lorazepam. Surgery was conducted by Dr. Tika Newman and her dictated note is part of the electronic medical record. She performed a right hip ORIF with an intramedullary nail. During and after surgery, the patient had tachycardia and hypotension. She was placed in the ICU overnight, she had fluid bolus and was given a transfusion of 1 unit packed cells. She became hemodynamically stable. HOSPITAL COURSE: After a night in the ICU, we were able to transfer her to a general surgical bed. During the rest of hospitalization, she had problems with dyspnea. Chest x-ray and confirmatory CT scan showed this is an atelectasis. She had no evidence of infection or pneumonia. Her white cells did not increase. Her C-reactive protein stayed low and there was no evidence of infiltration hence I did not treat her with antibacterials. The main problem during this hospital stay was emotional. She has sustained recent bereavement of her daughter. Her is failing. She felt depressed and bereaved. I started her on mirtazapine initially 7.5 mg and increased it to 15 mg at bedtime. During her hospital stay, her sleep did not improve and her mood remained depressed even to the day of discharge. On the day of discharge, her appetite is not very good. She has some mild dyspnea. She is not experiencing any pain. REVIEW OF SYSTEMS: No fevers, sweats, or chills. Respiratory System: No productive cough, just dyspnea. Cardiovascular System: No chest pain, tachycardia, or ankle edema. Gastrointestinal System: Poor appetite. Bowels are working. Genitourinary System: Is working. PHYSICAL EXAMINATION ON THE DAY OF DISCHARGE: Temperature 97.4, pulse 94, respirations 17, oxygen saturations 100% on 2 L of nasal cannulae, blood pressure 97/57, pulse 94. No cyanosis, jaundice, clubbing. She looks pale. Cardiovascular System: Her pulse is irregularly irregular. Heart sounds were normal. She has a 3/6 pansystolic murmur at the apex radiating to the axilla. She had no pedal edema. Respiratory System: Chest expansion was symmetrical. Percussion note was dull at the left base. She had crackles at the left base and emphysematous breath sounds. Abdominal Examination: No distention, masses , tenderness, or organomegaly. Nervous System: Alert and oriented x3. Normal speech. Cranial nerves II through XII intact. She is moving all limbs spontaneously. Psychiatric: She has a depressed affect and is anxious. ASSESSMENT AND PLAN: 1. Fall with intratrochanteric fracture of the right hip, corrected with an open reduction and internal fixation and intramedullary nail. She requires intensive OT and PT. The main limitation here is her depression and anxiety. 2. Osteoporosis. This requires nursing home management. 3. Depression: This is at the present time her main barrier. I started her on mirtazapine, Remeron 15 mg q.h.s. I anticipate this will stop to work after a couple of weeks; however she would benefit from some CBT type psychological counseling. 4. Dyspnea. This is multifactorial. She has raised left hemidiaphragm, chronic pulmonary obstructive disease and some atelectasis on the left side and also some anemia. I anticipate, this will improve over time once she becomes mobilized. 5. Hypertension. This has not been a problem during her hospital stay. 6. Atrial fibrillation. Rate control has been an issue. We will maintain her on digoxin as an outpatient. She should have her electrolytes checked and her digoxin level after a week. 7. Anticoagulation. She will return to her usual routine of warfarin. 8. DNR. She will remain a DNR. 9. Mitral regurgitation, diastolic dysfunction. We will continue to manage her with diuretic therapy. 10. Essential hypertension. She will continue her usual medication. She has been accepted for subacute rehabilitation at [facility] and there is talk amongst the family of her and her moving from [place] to [place] in a month's time. DISCHARGE MEDICATIONS: 1. Digoxin 0.125 mg daily. 2. Mirtazapine 15 mg q.h.s. 3. Acetaminophen 650 mg every 6 hours for pain as needed. 4. Furosemide 40 mg p.o. daily. 5. Spironolactone 25 mg daily. 6. Cholecalciferol 40 units per day. 7. Warfarin 2.5 mg daily. 8. Metoprolol 50 mg twice daily, hold if blood pressure is less than 100/60 or her pulse rate is less than 60. 9. Glucosamine chondroitin 1 tablet twice daily. SPECIAL NEEDS: 1. She needs some psychological counseling for depression, bereavement with a CBT approach. 2. She should have her INR checked after 2 days. 3. After 1 week, she should have a CBC, BMP, and digoxin level. [id number]/[facility] #: [id number] MTDD
--- NOTE | 2018-11-25 11:53 | PN ---
Progress Note - Progress Note Date of Service: 11/25/18 SOAP: Subjective: []Pt seen and examined at bedside. She is ready for DC. Denies RLE pain or any further complaints Objective: []General: NAD RLE: Right hip dressing changed, gauze soaked with serosanguinous drainage on the dressing, no active drainage, no purulence. Incision with well approximated wound edges, no surrounding erythema, thigh mildly edematous though soft. DF/PF intact. DP2+. Sensation intact to light touch distally. Calves supple and nontender without erythema, edema or palpable cords Assessment: [] POD #7 Right hip ORIF Plan: Cont PT/OT DC per medicine todAY Cont Coumadin for DVT ppx keflex 500 mg po TID x 5 days. Vital Signs Temp 98.0 F 11/25/18 07:09 Pulse 93 11/25/18 07:52 Resp 18 11/25/18 08:00 BP 109/68 11/25/18 07:52 Pulse Ox 99 11/25/18 07:52 Intake & Output 11/24/18 11/25/18 11/25/18 18:59 06:59 18:59 Intake Total 50 460 Output Total 1050 450 0 Balance -1000 10 0 Intake: Oral 50 460 Output: Urine 1050 450 0 Other: # Bowel Movements 0 Laboratory Last Values WBC 9.0 10^3/ul (3.5-10.8) 11/25/18 06:54 RBC 2.45 10^6/ul (4.00-5.40) L 11/25/18 06:54 Hgb 8.1 g/dl (12.0-16.0) L 11/25/18 06:54 Hct 25 % (35-47) L 11/25/18 06:54 MCV 101 fL (80-97) H 11/25/18 06:54 MCH 33 pg (27-31) H 11/25/18 06:54 MCHC 33 g/dl (31-36) 11/25/18 06:54 RDW 22 % (10.5-15) H 11/25/18 06:54 Plt Count 217 10^3/ul (150-450) 11/25/18 06:54 MPV 10.0 fL (7.4-10.4) 11/25/18 06:54 Neut % (Auto) Not Reportable 11/25/18 06:54 Lymph % (Auto) Not Reportable 11/25/18 06:54 [place] % (Auto) Not Reportable 11/25/18 06:54 Eos % (Auto) Not Reportable 11/25/18 06:54 Baso % (Auto) Not Reportable 11/25/18 06:54 Absolute Neuts (auto) Not Reportable 11/25/18 06:54 Absolute Lymphs (auto) Not Reportable 11/25/18 06:54 Absolute Monos (auto) Not Reportable 11/25/18 06:54 Absolute Eos (auto) Not Reportable 11/25/18 06:54 Absolute Basos (auto) Not Reportable 11/25/18 06:54 Absolute Nucleated RBC Not Reportable 11/25/18 06:54 Immature Gran % 2 % (0-9) 11/25/18 06:54 Neutrophils % 80 % 11/25/18 06:54 Lymphocytes % 13 % 11/25/18 06:54 Reactive Lymphs % 1 % (0-6) 11/25/18 06:54 Monocytes % 4 % 11/25/18 06:54 Eosinophils % 2 % 11/22/18 06:27 Metamyelocytes % 2 % (0-2) 11/25/18 06:54 Myelocytes % 3 % (0-1) H 11/22/18 06:27 Nucleated RBC % Not Reportable 11/25/18 06:54 Abs Neuts (Manual) 7.38 10^3/ul (1.5-7.7) 11/25/18 06:54 Abs Lymphs (Manual) 1.26 10^3/ul (1.0-4.8) 11/25/18 06:54 Abs Monocytes (Manual) 0.36 10^3/ul (0-0.8) 11/25/18 06:54 Absolute Eos (Manual) 0.2 10^3/ul (0-0.6) 11/22/18 06:27 Nucleated RBCs/100 WBC 9 (0-0) H 11/25/18 06:54 Platelet Morphology Giant 11/25/18 06:54 Large Platelets Present 11/20/18 06:43 Normal RBC Morphology Not Reportable 11/25/18 06:54 Polychromasia 2+ 11/25/18 06:54 Hypochromasia 2+ 11/20/18 06:43 Anisocytosis 2+ 11/25/18 06:54 INR (Anticoag Therapy) 2.28 (0.77-1.02) H 11/25/18 06:54 APTT 30.1 seconds (26.0-36.3) 11/17/18 05:42 Sodium 138 mmol/L (135-145) 11/25/18 06:54 Potassium 3.7 mmol/L (3.5-5.0) 11/25/18 06:54 Chloride 100 mmol/L (101-111) L 11/25/18 06:54 Carbon Dioxide 33 mmol/L (22-32) H 11/25/18 06:54 Anion Gap 5 mmol/L (2-11) 11/25/18 06:54 BUN 37 mg/dL (6-24) H 11/25/18 06:54 Creatinine 0.91 mg/dL (0.51-0.95) 11/25/18 06:54 Est GFR ( Amer) 70.8 (>60) 11/25/18 06:54 Est GFR (Non-Af Amer) 58.5 (>60) 11/25/18 06:54 BUN/Creatinine Ratio 40.7 (8-20) H 11/25/18 06:54 Glucose 107 mg/dL (70-100) H 11/25/18 06:54 POC Glucose (mg/dL) 152 mg/dL (70-100) H 11/19/18 12:25 Calcium 8.9 mg/dL (8.6-10.3) 11/25/18 06:54 Magnesium 1.8 mg/dL (1.9-2.7) L 11/18/18 05:28 Total Bilirubin 1.30 mg/dL (0.2-1.0) H 11/16/18 19:35 AST 16 U/L (13-39) 11/16/18 19:35 ALT 16 U/L (7-52) 11/16/18 19:35 Alkaline Phosphatase 73 U/L (34-104) 11/16/18 19:35 C-Reactive Protein 19.00 mg/L (<8.01) H 11/25/18 06:54 B-Natriuretic Peptide 227 pg/mL (<=100) H 11/22/18 06:27 Total Protein 5.7 g/dL (6.4-8.9) L 11/16/18 19:35 Albumin 3.9 g/dL (3.2-5.2) 11/16/18 19:35 Globulin 1.8 g/dL (2-4) L 11/16/18 19:35 Albumin/Globulin Ratio 2.2 (1-3) 11/16/18 19:35 Urine Color Yellow 11/16/18 17:25 Urine Appearance Cloudy 11/16/18 17:25 Urine pH 5.0 (5-9) 11/16/18 17:25 Ur Specific [place] 1.025 (1.010-1.030) 11/16/18 17:25 Urine Protein Negative (Negative) 11/16/18 17:25 Urine Ketones Trace (Negative) A 11/16/18 17:25 Urine Blood 3+ (Negative) A 11/16/18 17:25 Urine Nitrate Negative (Negative) 11/16/18 17:25 Urine Bilirubin Negative (Negative) 11/16/18 17:25 Urine Urobilinogen Negative (Negative) 11/16/18 17:25 Ur Leukocyte Esterase Negative (Negative) 11/16/18 17:25 Urine WBC (Auto) Trace(0-5/hpf) (Absent) 11/16/18 17:25 Urine RBC (Auto) 3+(>10/hpf) (Absent) A 11/16/18 17:25 Ur Squamous Epith Cells Present (Absent) A 11/16/18 17:25 Urine Bacteria Absent (Absent) 11/16/18 17:25 Urine Glucose Negative (Negative) 11/16/18 17:25 Digoxin 1.2 ng/ml (0.8-2.0) 11/24/18 05:22 Blood Type A Positive 11/16/18 19:35 Antibody Screen Negative 11/16/18 19:35 Crossmatch See Detail 11/16/18 19:35
== END 2018-11-25 13:10 | DRG 481 ==
LOC: ED 14:29 → MEDTELE 21:16 → ICU 11-18 20:59 → SSU 11-19 16:51
PROVIDERS: ADMIT Pediatrics; ATTEND Internal Medicine
PROC: 30233N1 Transfusion of Nonautologous Red Blood Cells into Peripheral Vein, Percutaneous Approach (ICD-10-PCS; 2018-11-18)
PROC: 0QS606Z Reposition Right Upper Femur with Intramedullary Internal Fixation Device, Open Approach (ICD-10-PCS; principal; 2018-11-18 15:30)
DX: S72.141A Displaced intertrochanteric fracture of right femur, initial encounter for closed fracture (principal); I50.32 Chronic diastolic (congestive) heart failure; M80.88XA Other osteoporosis with current pathological fracture, vertebra(e), initial encounter for fracture; I42.9 Cardiomyopathy, unspecified; J98.11 Atelectasis; W00.0XXA Fall on same level due to ice and snow, initial encounter; I11.0 Hypertensive heart disease with heart failure; Z96.1 Presence of intraocular lens; F32.9 Major depressive disorder, single episode, unspecified; D64.9 Anemia, unspecified; E78.00 Pure hypercholesterolemia, unspecified; I08.1 Rheumatic disorders of both mitral and tricuspid valves; F41.9 Anxiety disorder, unspecified; M25.751 Osteophyte, right hip; K57.30 Diverticulosis of large intestine without perforation or abscess without bleeding; R79.89 Other specified abnormal findings of blood chemistry; I49.3 Ventricular premature depolarization; I95.9 Hypotension, unspecified; I48.2 Chronic atrial fibrillation; M85.88 Other specified disorders of bone density and structure, other site; R00.0 Tachycardia, unspecified; H40.9 Unspecified glaucoma; Z98.42 Cataract extraction status, left eye; Y92.008 Other place in unspecified non-institutional (private) residence as the place of occurrence of the external cause; Z87.11 Personal history of peptic ulcer disease; Z87.891 Personal history of nicotine dependence; Z98.41 Cataract extraction status, right eye; Z63.4 Disappearance and death of family member; Z79.01 Long term (current) use of anticoagulants
CPT/HCPCS: 36415; 70450; 71045; 71250; 72125; 76000; 80048; 80053; 80162; 81003; 81015; 83735; 83880; 85014; 85018; 85025; 85610; 85730; 86140; 86850; 86900; 86901; 86922; 87086; 87641; 90715; 93005; 93306; 99284; A9270-GY; C1713; G8978-GP-CL; G8979-GP-CI; G8987-GO-CM; G8988-GO-CJ; J0690; J1100; J1160; J1170; J1650; J1940; J2060; J2250; J2270; J2405; J2704; J2795; J3010; J3475; J3490; P9040